=== PATIENT | female | born 1960 | race Caucasian/White ===

== ENCOUNTER 2019-10-06 16:43 | Emergency (ER) | payer OTHER ==
--- NOTE | 2019-10-06 18:06 | RAD REPORT ---
EXAM DESCRIPTION: RAD - Elbow Right 3 View - 10/06/2019 5:56 pm CLINICAL HISTORY: SWELLING Fall, pain COMPARISON: No comparisons FINDINGS: Soft tissue swelling is seen along dorsal aspect of the proximal forearm. No acute fractur e seen.
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
[2019-10-06] MEDS ORDERED: KETOROLAC 30 MG/ML INJ ONE (18:18)
[2019-10-06 19:25] VITALS: BP 130/72; TEMP 98.3; O2SAT 98
== END 2019-10-06 19:18 | disposition home or self-care (01) ==
LOC: ER 16:43
DX: S50.11XA Contusion of right forearm, initial encounter (principal); V18.0XXA Pedal cycle driver injured in noncollision transport accident in nontraffic accident, initial encounter; I10 Essential (primary) hypertension; Z88.5 Allergy status to narcotic agent; Z88.8 Allergy status to other drugs, medicaments and biological substances
CPT/HCPCS: 96372; 99283

== ENCOUNTER 2020-10-08 09:10 | Emergency (ER) | payer OTHER ==
--- NOTE | 2020-10-08 09:56 | RAD REPORT ---
EXAM DESCRIPTION: CT - [id number] - 10/08/2020 9:26 am CLINICAL HISTORY: fall COMPARISON: Outpt Chest Pa/Lat (2 Views) dated 01/10/2016 TECHNIQUE: Axial 5 mm thick images of the head were obtained. Axial 2 mm thick images of the cervic al spine were obtained with sagittal and coronal reconstruction images generated and reviewed. All CT scans are performed using dose optimization technique as appropriate and may include automated exposure control or mA/KV adjustment according to patient size. FINDINGS: No intracranial hemorrhage, mass, edema or acute intracranial finding. No suspicion for ac festus infarction. No cortical edema or sulcal effacement changes. Patient has no significant degree of atrophy. There are questionable chronic ischemic changes mild in severity. Artifacts are present. Phy siologic calcifications are present. Mastoid air cells and paranasal sinuses are clear. No globe or o rbit abnormality seen. Small posterior scalp hematoma present. Cervical bodies are normal in height. There is left convex curvature to the cervical spine that may b e due to muscle spasm or a positioning artifact. No subluxation abnormalities. C5-6 disc space narrow ing present with endplate spurring and right-sided uncovertebral joint hypertrophy. There is right fo raminal stenosis present. No fracture or acute bony abnormality. Central canal detail is inherently limited. No paraspinal mass or hematoma. Patient has dense for age carotid calcifications. These are quite pr ominent and may well cause significant stenosis. IMPRESSION: No intracranial hemorrhage, mass, edema or other acute intracranial finding. Patient has a small posterior scalp hematoma with underlying bone intact. Cervical spine degenerative changes are present without acute finding. Very dense for age bilateral carotid bulb calcifications suspected to cause significant stenosis. Fol low-up outpatient carotid ultrasound could be performed.
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
== END 2020-10-08 10:22 | disposition home or self-care (01) ==
LOC: ER 09:10
DX: S06.0X9A Concussion with loss of consciousness of unspecified duration, initial encounter (principal); V18.0XXA Pedal cycle driver injured in noncollision transport accident in nontraffic accident, initial encounter; Z88.5 Allergy status to narcotic agent
CPT/HCPCS: 70450; 72125

== ENCOUNTER 2020-12-21 11:15 | Emergency (ER) | payer OTHER ==
--- NOTE | 2020-12-21 11:37 | EDPHYS ---
Physician Documentation [facility] Name: Yeimy Donohue Age: 60 yrs Sex: Female : 1960 Arrival Date: 12/21/2020 Time: 11:16 Bed Waiting Private MD: ED Physician Tay Kline HPI: 12/21 11:34 This 60 yrs old Female presents to ER via Ambulatory with complaints of kb Insect Bite. 11:34 The patient presents with an abscess of the left subscapular area. Description: kb erythematous. Onset: The symptoms/episode began/occurred 2 day(s) ago. Possible cause(s): unknown. Associated signs and symptoms: Pertinent positives: erythema. Modifying factors: the symptoms are alleviated by nothing, the symptoms are aggravated by nothing. Severity of symptoms: At their worst the symptoms were moderate, in the emergency department the symptoms are unchanged. The patient has not experienced similar symptoms in the past. The patient has not recently seen a physician. Pt reports she was bitten by a spider 2 days ago. Historical: - Allergies: 11:28 Codeine; jl7 11:28 TOPROL; jl7 11:28 Tramadol HCl; jl7 - PMHx: 11:28 Anxiety; Cellulitis; Depression; Diabetes - NIDDM; High Cholesterol; Hypertension; jl7 - Immunization history:: Client reports receiving the 2nd dose of the Covid vaccine. - Social history:: Smoking status: Patient denies any tobacco usage or history of. ROS: 11:33 Constitutional: Negative for fever, chills, and weight loss. kb 11:33 Skin: Positive for abscess, of the left subscapular area. 11:33 All other systems are negative. Exam: 11:33 Constitutional: This is a well developed, well nourished patient who is awake, alert, kb and in no acute distress. Head/Face: Normocephalic, atraumatic. ENT: Moist Mucous membranes Respiratory: Respirations even and unlabored. No increased work of breathing, no retractions or nasal flaring. MS/ Extremity: Pulses equal, no cyanosis. Neurovascular intact. Full, normal range of motion. Neuro: Awake and alert, GCS 15, oriented to person, place, time, and situation. Moves all extremities. Normal gait. Psych: Awake, alert, with orientation to person, place and time. Behavior, mood, and affect are within normal limits. 11:33 Skin: abscess, that is small, of the left subscapular area. Vital Signs: 11:27 BP 148 / 73; Pulse 91; Resp 17; Temp 97.; Pulse Ox 98% ; Weight 81.65 kg; Height 4 ft. jl7 11 in. (149.86 cm); Pain 8/10; 11:27 Body Mass Index 36.36 (81.65 kg, 149.86 cm) jl7 MDM: 11:29 Patient medically screened. kb 11:30 Data reviewed: vital signs, nurses notes. Data interpreted: Pulse oximetry: on room air kb is 98 %. Interpretation: normal. Counseling: I had a detailed discussion with the patient and/or guardian regarding: the historical points, exam findings, and any diagnostic results supporting the discharge/admit diagnosis, the need for outpatient follow up, a family practitioner, to return to the emergency department if symptoms worsen or persist or if there are any questions or concerns that arise at home. Administered Medications: No medications were administered Disposition: 13:09 Co-signature as Attending Physician, Tay Kline MD I agree with the assessment and kdr plan of care. Disposition Summary: 12/21/20 11:36 Discharge Ordered Location: Home kb Condition: Stable kb Diagnosis - Cutaneous abscess of back [any part, except buttock] kb Followup: kb - With: Emergency Department - When: As needed - Reason: Worsening of condition Followup: kb - With: Private Physician - When: 2 - 3 days - Reason: Recheck today's complaints, Continuance of care, Re-evaluation by your physician Discharge Instructions: - Discharge Summary Sheet kb - Skin Abscess, [id number] kb Forms: - Medication Reconciliation Form kb - Thank You Letter kb - Antibiotic Education kb - Prescription Opioid Use kb Prescriptions: - Bactrim DS 800-160 mg Oral Tablet - take 1 tablet by ORAL route every 12 hours for 7 days; 14 tablet; Refills: 0, kb Product Selection Permitted Signatures: Yolanda Fulton, [employer]-C [employer]-Tay Benítez MD MD kdr Leal, Jahala RN RN jl7
--- NOTE | 2020-12-21 11:37 | ER ---
Nurse's Notes [facility] Name: Yeimy Donohue Age: 60 yrs Sex: Female : 1960 Arrival Date: 12/21/2020 Time: 11:16 Bed Waiting Private MD: Diagnosis: Cutaneous abscess of back [any part, except buttock] Presentation: 12/21 11:27 Chief complaint: Patient states: Spider back to posterior shoulder 2 days ago. jl7 Coronavirus screen: At this time, the client does not indicate any symptoms associated with coronavirus-19. Ebola Screen: No symptoms or risks identified at this time. Initial Sepsis Screen: Does the patient meet any 2 criteria? No. Patient's initial sepsis screen is negative. Does the patient have a suspected source of infection? No. Patient's initial sepsis screen is negative. Risk Assessment: Do you want to hurt yourself or someone else? Patient reports no desire to harm self or others. Onset of symptoms was December 19, 2020. Care prior to arrival: None. 11:27 Method Of Arrival: Ambulatory jl7 11:27 Acuity: [place] 4 jl7 Triage Assessment: 11:28 Bite description: bite sustained to left subscapular area is superficial, was sustained jl7 2 days ago. by an unknown animal, animal information: vaccination(s) is unknown. General: Appears in no apparent distress. uncomfortable, Behavior is cooperative, anxious. Pain: Complains of pain in left subscapular area Pain currently is 8 out of 10 on a pain scale. Historical: - Allergies: 11:28 Codeine; jl7 11:28 TOPROL; jl7 11:28 Tramadol HCl; jl7 - PMHx: 11:28 Anxiety; Cellulitis; Depression; Diabetes - NIDDM; High Cholesterol; Hypertension; jl7 - Immunization history:: Client reports receiving the 2nd dose of the Covid vaccine. - Social history:: Smoking status: Patient denies any tobacco usage or history of. Screenin:42 Abuse screen: Denies threats or abuse. Denies injuries from another. Nutritional jl7 screening: No deficits noted. Tuberculosis screening: No symptoms or risk factors identified. Fall Risk None identified. Vital Signs: 11:27 BP 148 / 73; Pulse 91; Resp 17; Temp 97.; Pulse Ox 98% ; Weight 81.65 kg; Height 4 ft. jl7 11 in. (149.86 cm); Pain 8/10; 11:27 Body Mass Index 36.36 (81.65 kg, 149.86 cm) jl7 ED Course: 11:16 Patient arrived in ED. as 11:19 Yolanda Fulton FNP-C [facility] kb 11:19 Tay Kline MD is Attending Physician. kb 11:28 Triage completed. jl7 11:28 Arm band placed on right wrist. jl7 11:42 Patient has correct armband on for positive identification. jl7 11:42 No provider procedures requiring assistance completed. Patient did not have IV access jl7 during this emergency room visit. Administered Medications: No medications were administered Outcome: 11:36 Discharge ordered by . kb 11:42 Discharged to home ambulatory. jl7 11:42 Condition: stable 11:42 Discharge instructions given to patient, Instructed on discharge instructions, follow up and referral plans. medication usage, Demonstrated understanding of instructions, follow-up care, medications, Prescriptions given X 1. 11:42 Patient left the ED. jl7 Signatures: Yolanda Fulton FNP-C FNP-Martha Johnson Jahala, RN RN jl7
[2020-12-21 11:47] VITALS: BP 148/73; TEMP 97; O2SAT 98
== END 2020-12-21 11:42 | disposition home or self-care (01) ==
LOC: ER 11:15
DX: L02.212 Cutaneous abscess of back [any part, except buttock and flank] (principal); I10 Essential (primary) hypertension; Z88.5 Allergy status to narcotic agent; Z88.8 Allergy status to other drugs, medicaments and biological substances
CPT/HCPCS: 99282

== ENCOUNTER 2021-05-27 07:57 | Emergency (ER) | payer OTHER ==
[2021-05-27 08:20] LABS: Absolute Lymphocytes (CBC) 1.6 K/uL (0.7-4.9); Hematocrit 43.9 % (36.0-45.0); Lymphocytes % 26.3 % (15.3-44.8); MPV 8.4 fL (7.6-11.3); RBC Red Blood Cell Count 4.97 M/uL (3.86-4.86)
[2021-05-27 08:39] LABS: Urine Blood Negative (Negative); Urine Glucose 3+ (Negative); Urine Protein Negative (Negative); Urine Specific Gravity 1.015 (1.005-1.030); Urine pH 5.5 (5.0-7.0)
[2021-05-27 08:59] LABS: Albumin 3.4 g/dL (3.4-5.0); Bilirubin Total 0.2 mg/dL (0.2-1.0); Protein, Total 7.3 g/dL (6.4-8.2)
[2021-05-27] MEDS ORDERED: NA CHLORIDE 0.9% 500 ML ONE (09:02)
[2021-05-27] MEDS ORDERED: MORPHINE 4 MG/ML SYR ONE (09:02)
[2021-05-27] MEDS ORDERED: ONDANSETRON 4 MG/2 ML VIAL ONE (09:02)
--- NOTE | 2021-05-27 11:11 | RAD REPORT ---
EXAM DESCRIPTION: CT - Abdomen Pelvis W Contrast - 05/27/2021 10:19 am CLINICAL HISTORY: Abdominal pain COMPARISON: 2015 TECHNIQUE: Computed axial tomography of the abdomen pelvis was obtained. 100 cc Isovue-300 was admin istered intravenously. Oral contrast was not requested which limits evaluation of bowel. All CT scans are performed using dose optimization technique as appropriate and may include automated exposure control or mA/KV adjustment according to patient size. FINDINGS: Cholecystectomy. Liver, spleen, pancreas, right adrenal kidneys are unremarkable. . Normal appendix Left adrenal nodule without significant change likely adenoma There is no evidence of diverticulitis. Ventral hernia repair 6 centimeter duodenal diverticulum Nvnq-fa-nllohpue stenosis celiac artery IMPRESSION: No acute abnormality is displayed.
--- NOTE | 2021-05-27 11:35 | ER ---
Nurse's Notes [facility] Name: Yeimy Donohue Age: 60 yrs Sex: Female : 1960 Arrival Date: 05/27/2021 Time: 07:58 Bed 13 Private MD: Diagnosis: Upper abdominal pain, unspecified Presentation: 05/27 07:58 Chief complaint: EMS states: they were called to the patients home for a complaint of ap3 abdominal pain. Patient denies recent trauma or surgeries to the area. Patient denies nausea and vomiting, and reports having a normal for her bowel movement this morning. Patient reports only having pain when she thinks about it, but when she isn't thinking about it, she doesn't have any pain. Coronavirus screen: At this time, the client does not indicate any symptoms associated with coronavirus-19. Ebola Screen: No symptoms or risks identified at this time. Initial Sepsis Screen: Does the patient meet any 2 criteria? No. Patient's initial sepsis screen is negative. Does the patient have a suspected source of infection? No. Patient's initial sepsis screen is negative. Risk Assessment: Do you want to hurt yourself or someone else? Patient reports no desire to harm self or others. Onset of symptoms was May 27, 2021. 07:58 Method Of Arrival: EMS: [facility] ap3 07:58 Acuity: [place] 3 ap3 Triage Assessment: 08:01 General: Appears in no apparent distress. comfortable, Behavior is calm, cooperative, ap3 appropriate for age. Pain: Complains of pain in epigastric area Pain began suddenly. Neuro: Level of Consciousness is awake, alert, obeys commands, Oriented to person, place, time. Cardiovascular: Patient's skin is warm and dry. Respiratory: Airway is patent Respiratory effort is even, unlabored. GI: Reports upper abdominal pain, Patient currently denies constipation, diarrhea, nausea, vomiting. Historical: - Allergies: 08:00 Codeine; ap3 08:00 TOPROL; ap3 08:00 Tramadol HCl; ap3 - PMHx: 08:00 Anxiety; High Cholesterol; Diabetes - NIDDM; Depression; Cellulitis; Hypertension; ap3 - Immunization history:: Client reports receiving the 2nd dose of the Covid vaccine, Flu vaccine is up to date. - Social history:: Smoking status: Patient denies any tobacco usage or history of. Screenin:02 Abuse screen: Denies threats or abuse. Nutritional screening: No deficits noted. ap3 Tuberculosis screening: No symptoms or risk factors identified. 08:30 Fall Risk None identified. jg9 Assessment: 07:55 Reassessment: No changes from previously documented assessment. Pain: Complains of pain jg9 in abdomen and epigastric area Pain currently is 6 out of 10 on a pain scale. Quality of pain is described as burning, Also complains of nausea. 09:52 Reassessment: Patient denies pain at this time. Patient states feeling better. Patient jg9 states symptoms have improved. 11:07 Reassessment: No changes from previously documented assessment. Patient and/or family jg9 updated on plan of care and expected duration. Pain level reassessed. Vital Signs: 07:58 BP 134 / 95; Pulse 82; Resp 16; Temp 98.4(O); Pulse Ox 96% ; Weight 88.45 kg; Height 4 ap3 ft. 10 in. (147.32 cm); 08:00 BP 157 / 71; Pulse 79; Resp 17 S; Pulse Ox 96% on R/A; Pain 6/10; jg9 09:30 BP 141 / 61; Pulse 75; Resp 12 S; Pulse Ox 96% on R/A; Pain 0/10; jg9 10:30 BP 164 / 71; Pulse 79; Resp 14 S; Pulse Ox 100% on R/A; Pain 0/10; jg9 11:30 BP 158 / 68; Pulse 74; Resp 16 S; Pulse Ox 98% on R/A; jg9 07:58 Body Mass Index 40.75 (88.45 kg, 147.32 cm) ap3 ED Course: 07:58 Patient arrived in ED. ap3 08:00 Triage completed. ap3 08:02 Arm band placed on right wrist. ap3 08:02 Patient has correct armband on for positive identification. Bed in low position. Call ap3 light in reach. Side rails up X2. Pulse ox on. NIBP on. Door closed. Noise minimized. 08:03 Tay Kline MD is Attending Physician. kdr 08:04 Maxine Mcfarland RN is Primary Nurse. jg9 08:04 Inserted saline lock: 20 gauge in right antecubital area, using aseptic technique. jg9 Blood collected. 08:10 Placed in gown. Warm blanket given. [facility] 08:10 Initial lab(s) drawn, by ED staff, sent to lab. [facility] 10:19 CT Abd/Pelvis - IV Contrast Only In Process Unspecified. EDPA 11:07 Resting quietly. Appears to be sleeping. j9 11:30 Awaiting lab results, Awaiting radiology results. Awaiting disposition. j9 11:45 EKG done, by ED staff, reviewed by Tay Kline MD. [facility] 11:53 No provider procedures requiring assistance completed. jg9 11:54 IV discontinued. jg9 Administered Medications: 09:10 Drug: NS 0.9% 500 ml Route: IV; Rate: bolus; Site: right antecubital; j9 09:52 Follow up: IV Status: Completed infusion; IV Intake: 500ml j9 09:12 Drug: Zofran (Ondansetron) 4 mg Route: IVP; Site: right antecubital; j9 09:52 Follow up: Response: No adverse reaction; Nausea is decreased j9 09:14 Drug: morphine 4 mg Route: IVP; Site: right antecubital; j9 09:52 Follow up: Response: No adverse reaction; Marked relief of symptoms; Pain is decreased jg9 Intake: 09:52 IV: 500ml; Total: 500ml. jg9 Outcome: 11:35 Discharge ordered by . kdr 11:53 Discharged to home ambulatory. jg9 11:53 Condition: stable 11:53 Discharge instructions given to patient, Instructed on discharge instructions, follow up and referral plans. Demonstrated understanding of instructions, follow-up care, medications, Prescriptions given X 1. 11:55 Patient left the ED. jg9 Signatures: Dispatcher [employer] [facility] Tay Kline MD MD kdr Martinez, Maria [facility] Radha Bonds RN RN ap3 Gilmore, Jennifer, RN RN jg9 Corrections: (The following items were deleted from the chart) 09:16 07:55 Pain: Complains of pain in abdomen and epigastric area Pain currently is 6 out of jg9 10 on a pain scale. Also complains of nausea, jg9
--- NOTE | 2021-05-27 11:35 | EDPHYS ---
Physician Documentation [facility] Name: Yeimy Donohue Age: 60 yrs Sex: Female : 1960 Arrival Date: 05/27/2021 Time: 07:58 Bed 13 Private MD: ED Physician Tay Kline HPI: 05/27 09:57 This 60 yrs old Female presents to ER via EMS with complaints of Abdominal pain. kdr 09:57 The patient presents with abdominal pain in the left upper quadrant. Onset: The kdr symptoms/episode began/occurred gradually, yesterday. The symptoms do not radiate. Associated signs and symptoms: none. The symptoms are described as achy, dull, vague. Modifying factors: The symptoms are alleviated by nothing, the symptoms are aggravated by vomiting. Severity of pain: At its worst the pain was mild moderate just prior to arrival, in the emergency department the pain is unchanged. The patient has not experienced similar symptoms in the past. Historical: - Allergies: 08:00 Codeine; ap3 08:00 TOPROL; ap3 08:00 Tramadol HCl; ap3 - PMHx: 08:00 Anxiety; High Cholesterol; Diabetes - NIDDM; Depression; Cellulitis; Hypertension; ap3 - Immunization history:: Client reports receiving the 2nd dose of the Covid vaccine, Flu vaccine is up to date. - Social history:: Smoking status: Patient denies any tobacco usage or history of. ROS: 09:57 Constitutional: Negative for fever, chills, and weight loss, Eyes: Negative for injury, kdr pain, redness, and discharge, Neck: Negative for injury, pain, and swelling, Cardiovascular: Negative for chest pain, palpitations, and edema, Respiratory: Negative for shortness of breath, cough, wheezing, and pleuritic chest pain, Back: Negative for injury and pain, : Negative for injury, bleeding, discharge, and swelling, MS/Extremity: Negative for injury and deformity, Skin: Negative for injury, rash, and discoloration, Neuro: Negative for headache, weakness, numbness, tingling, and seizure activity. Psych: Negative for depression, anxiety, suicide ideation, homicidal ideation, and hallucinations, Allergy/Immunology: Negative for hives, rash, and allergies, Endocrine: Negative for neck swelling, polydipsia, polyuria, polyphagia, and marked weight changes, Hematologic/Lymphatic: Negative for swollen nodes, abnormal bleeding, and unusual bruising. 09:57 Abdomen/GI: Positive for abdominal pain, nausea, Negative for diarrhea, constipation, abdominal cramps, abdominal distension, anorexia, dysphagia, hematemesis, black/tarry stool, rectal pain, rectal bleeding. Exam: 09:57 Constitutional: This is a well developed, well nourished patient who is awake, alert, kdr and in no acute distress. Head/Face: Normocephalic, atraumatic. Eyes: Pupils equal round and reactive to light, extra-ocular motions intact. Lids and lashes normal. Conjunctiva and sclera are non-icteric and not injected. Cornea within normal limits. Periorbital areas with no swelling, redness, or edema. Neck: Trachea midline, no thyromegaly or masses palpated, and no cervical lymphadenopathy. Supple, full range of motion without nuchal rigidity, or vertebral point tenderness. No Meningismus. Chest/axilla: Normal chest wall appearance and motion. Nontender with no deformity. No lesions are appreciated. Cardiovascular: Regular rate and rhythm with a normal S1 and S2. No gallops, murmurs, or rubs. Normal PMI, no JVD. No pulse deficits. Respiratory: Lungs have equal breath sounds bilaterally, clear to auscultation and percussion. No rales, rhonchi or wheezes noted. No increased work of breathing, no retractions or nasal flaring. Back: No spinal tenderness. No costovertebral tenderness. Full range of motion. Skin: Warm, dry with normal turgor. Normal color with no rashes, no lesions, and no evidence of cellulitis. MS/ Extremity: Pulses equal, no cyanosis. Neurovascular intact. Full, normal range of motion. Neuro: Awake and alert, GCS 15, oriented to person, place, time, and situation. Cranial nerves II-XII grossly intact. Motor strength 5/5 in all extremities. Sensory grossly intact. Cerebellar exam normal. Normal gait. Psych: Awake, alert, with orientation to person, place and time. Behavior, mood, and affect are within normal limits. 09:57 Abdomen/GI: Inspection: abdomen appears normal, Bowel sounds: diminished, in all quadrants, Palpation: soft, mild abdominal tenderness, in all quadrants. 11:54 ECG was reviewed by the Attending Physician. kdr Vital Signs: 07:58 BP 134 / 95; Pulse 82; Resp 16; Temp 98.4(O); Pulse Ox 96% ; Weight 88.45 kg; Height 4 ap3 ft. 10 in. (147.32 cm); 08:00 BP 157 / 71; Pulse 79; Resp 17 S; Pulse Ox 96% on R/A; Pain 6/10; jg9 09:30 BP 141 / 61; Pulse 75; Resp 12 S; Pulse Ox 96% on R/A; Pain 0/10; jg9 10:30 BP 164 / 71; Pulse 79; Resp 14 S; Pulse Ox 100% on R/A; Pain 0/10; jg9 11:30 BP 158 / 68; Pulse 74; Resp 16 S; Pulse Ox 98% on R/A; jg9 07:58 Body Mass Index 40.75 (88.45 kg, 147.32 cm) ap3 MDM: 09:57 Data reviewed: vital signs, nurses notes, lab test result(s), radiologic studies. kdr Counseling: I had a detailed discussion with the patient and/or guardian regarding: the historical points, exam findings, and any diagnostic results supporting the discharge/admit diagnosis, lab results, radiology results, the need for outpatient follow up. 11:35 Patient medically screened. [facility] 05/27 08:04 Order name: CBC with Diff; Complete Time: 08:28 [facility] [place] 08:04 Order name: CMP; Complete Time: 11:34 [facility] [place] 08:04 Order name: Lipase; Complete Time: 11:[place] [facility] [place] 08:11 Order name: Troponin High Sensitivity; Complete Time: 11:34 [facility] 05/27 08:39 Order name: Urine Dipstick-Ancillary; Complete Time: 11:34 [facility] 05/27 09:51 Order name: CT Abd/Pelvis - IV Contrast Only; Complete Time: 11:34 [facility] 05/27 08:04 Order name: IV Saline Lock; Complete Time: 08:04 [facility] [place] 08:04 Order name: Labs collected and sent; Complete Time: 08:04 [facility] [place] 05/[place] 08:11 Order name: Urine Dipstick-Ancillary (obtain specimen); Complete Time: 08:57 [facility] 05/27 08:11 Order name: EKG - Nurse/Tech; Complete Time: 09:13 kdr EC:54 Rate is 76 beats/min. Rhythm is regular, Sinus Rhythm with No ectopy. QRS [place] is kdr Normal. Right axis deviation noted. TN interval is normal. QRS interval is normal. QT interval is normal. Clinical impression: NSR w/ Non-specific ST/T Changes. Administered Medications: 09:10 Drug: NS 0.9% 500 ml Route: IV; Rate: bolus; Site: right antecubital; jg9 09:52 Follow up: IV Status: Completed infusion; IV Intake: 500ml jg9 09:12 Drug: Zofran (Ondansetron) 4 mg Route: IVP; Site: right antecubital; jg9 09:52 Follow up: Response: No adverse reaction; Nausea is decreased jg9 09:14 Drug: morphine 4 mg Route: IVP; Site: right antecubital; jg9 09:52 Follow up: Response: No adverse reaction; Marked relief of symptoms; Pain is decreased jg9 Disposition Summary: 05/27/21 11:35 Discharge Ordered Location: Home kdr Problem: new kdr Symptoms: have improved kdr Condition: Stable kdr Diagnosis - Upper abdominal pain, unspecified kdr Followup: kdr - With: Private Physician - When: 2 - 3 days - Reason: If symptoms return, Further diagnostic work-up, Recheck today's complaints, Continuance of care, Re-evaluation by your physician Discharge Instructions: - Discharge Summary Sheet kdr - Abdominal Pain, Adult, [id number] kdr Forms: - Medication Reconciliation Form kdr - Thank You Letter kdr Prescriptions: - Zofran 4 mg Oral Tablet - take 1 tablet by ORAL route every 4-6 hours As needed; 12 tablet; Refills: 0, kdr Product Selection Permitted Signatures: Dispatcher [employer] Tay Russell MD MD kdr Prokisch, Amanda RN RN ap3 Maxine Mcfarland RN RN jg9
[2021-05-27 12:01] VITALS: TEMP 98.4
[2021-05-27 12:06] VITALS: BP 158/68; O2SAT 98
--- NOTE | 2021-05-28 08:46 | EKG ---
Test Date: 2021-05-27 Test Time: 09:05:39 Embosser Operator: JEFF MEASUREMENT RESULTS: Intervals: Rate: 76 NH: 156 QRSD: 76 QT: 382 QTc: 429 [place]: P: 51 NH: 156 QRS: 90 T: 16 INTERPRETIVE STATEMENTS: Normal sinus rhythm Rightward axis Septal infarct, age undetermined Abnormal ECG Compared to ECG 01/10/2016 16:51:42 Right-axis deviation now present Myocardial infarct finding now present Electronically Signed On 05-28-21 08:42:33 CDT by Rajiv Lo
== END 2021-05-27 11:55 | disposition home or self-care (01) ==
LOC: ER 07:57
DX: R10.12 Left upper quadrant pain (principal); E11.9 Type 2 diabetes mellitus without complications; I10 Essential (primary) hypertension; Z88.5 Allergy status to narcotic agent
CPT/HCPCS: 96361; 93005; 85025; 36415; 81003; 84484; 83690; 80053; 74177; 96375; 96374; 99284; Q9967; J7040; J2405

== ENCOUNTER 2021-09-10 08:17 | Emergency (ER) | payer OTHER ==
[2021-09-10] MEDS ORDERED: KETOROLAC 30 MG/ML INJ ONE (08:36)
[2021-09-10 08:44] LABS: Absolute Lymphocytes (CBC) 0.9 K/uL (0.7-4.9); Hematocrit 37.4 % (36.0-45.0); Lymphocytes % 15.3 % (15.3-44.8); MCV 92.1 fL (80-100); MPV 8.2 fL (7.6-11.3); RBC Red Blood Cell Count 4.06 M/uL (3.86-4.86)
[2021-09-10 08:50] LABS: Urine Blood Trace-intact (Negative); Urine Glucose 2+ (Negative); Urine Protein 1+ (Negative)
[2021-09-10 08:58] LABS: Potassium 3.4 mmol/L (3.5-5.1)
[2021-09-10 09:23] LABS: Urine Appearance CLEAR (Clear); Urine Bilirubin NEGATIVE (Negative); Urine Blood TRACE (Negative); Urine Color YELLOW (Yellow); Urine Glucose 3+ (Negative); Urine Protein 1+ (Negative); Urine Specific Gravity 1.015 (1.005-1.030)
[2021-09-10 09:24] LABS: Urine Microscopic Reflex ORDER UMIC; Urine Urobilinogen 0.2 mg/dL (0.2-1.0)
[2021-09-10 09:35] LABS: Urine Bacteria 20-50 /HPF (<20); Urine RBC <5 /HPF (NONE SEEN)
--- NOTE | 2021-09-10 10:12 | RAD REPORT ---
EXAM DESCRIPTION: CT - Abdomen Pelvis Wo Contrast - 09/10/2021 9:54 am CLINICAL HISTORY: back pain COMPARISON: Abdomen Pelvis W Contrast dated 05/27/2021; Abdomen Pelvis W Contrast dated 6 TECHNIQUE: Axial [address] imaging of the abdomen and pelvis was performed without IV contrast. No IV contrast was given because of allergy, abnormal renal function, patient refusal or physician re quest. No oral contrast. All CT scans are performed using dose optimization technique as appropriate and may include automated exposure control or mA/KV adjustment according to patient size. FINDINGS: No suspicious findings in the lung bases. The liver, spleen and pancreas show no suspicious findings on non-contrast imaging. Cholecystectomy c lips in place. No biliary tree dilatation. No hydronephrosis or suspicious renal mass. A 2 centimeter left adrenal fat attenuation mass unchang ed from comparison. Isodense renal masses and pyelonephritis cannot be excluded in the absence of IV contrast. The urinary bladder is without significant finding. Uterus and ovaries show no suspicious f indings. No gastric dilatation or gastric wall thickening. Patient has 2 very large duodenal diverticulum fill ed with food/bowel content. These are 6 cm in diameter. These measure slightly larger than prior imag ing back to 2016 but are not new. Size may vary significantly based on the amount of material within the lumen. No wall thickening or edema. Remainder of the small bowel unremarkable. The appendix is no rmal. Moderate stool volume fills the colon. Sigmoid is tortuous and redundant with mild to moderate diverticulosis. No diverticulitis. Numerous pelvic floor phleboliths are present. There is pelvic floor laxity evident. No free air, mili e fluid or inflammatory stranding. No mass or bulky lymphadenopathy. Postsurgical changes noted to the periumbilical abdominal wall. Findings are stable from May 2021. No acute bone findings seen. Facet joint and endplate degenerative changes are present. No pathologic component. Central canal detail is inherently limited. Prominent disc bulge changes are evident at L 3-4. Borderline or mild central spinal stenosis is suspected. This can be better assessed on MR imagi ng. IMPRESSION: Non-contrast enhanced CT abdomen and pelvis imaging show no acute finding. Full assessment is limited is the absence of IV contrast. Nonacute findings detailed in the body of the report.
--- NOTE | 2021-09-10 10:26 | EDPHYS ---
Physician Documentation [facility] Name: Yeimy Donohue Age: 60 yrs Sex: Female : 1960 Arrival Date: 09/10/2021 Time: 08:18 Bed 18 Private MD: ED Physician Chuy Anthony HPI: 09/10 08:27 This 60 yrs old Female presents to ER via EMS with complaints of low back. ms3 08:27 The patient presents with pain that is acute, with no known mechanism of injury. The ms3 symptoms are located in the low back. Onset: The symptoms/episode began/occurred acutely, today. The pain does not radiate. Associated signs and symptoms: Pertinent positives: dysuria, nausea, Pertinent negatives: chest pain, vomiting. The problem was sustained without known cause. Modifying factors: The patient symptoms are alleviated by [facility] by EMS. Historical: - Allergies: 08:20 Codeine; rosales 08:20 TOPROL; rosales 08:20 Tramadol HCl; rosales - Home Meds: 08:20 buspirone 15 mg Oral tab 1 tab daily [Active]; carvedilol 12.5 mg Oral tab 1 tab 2 rosales times per day [Active]; Effexor XR 75 mg Oral cp24 1 cap once daily [Active]; Invokana 100 mg Oral tab 1 tab once daily [Active]; losartan 50 mg Oral tab 1 tab once daily [Active]; metformin 1,000 mg Oral tab 1 tab 2 times per day [Active]; Multiple Vitamins Oral tab [Active]; oxybutynin chloride 5 mg Oral tab 1 tab 2 times per day [Active]; simvastatin 20 mg Oral tab 1 tab once daily [Active]; - PMHx: 08:20 Anxiety; Cellulitis; Depression; Diabetes - NIDDM; High Cholesterol; Hypertension; rosales - Immunization history:: Adult Immunizations up to date. - Social history:: Smoking status: Patient denies any tobacco usage or history of. ROS: 08:27 Constitutional: Negative for fever, and chills. ENT: Negative for injury, pain, and ms3 discharge, Neck: Negative for injury, pain, and swelling, Cardiovascular: Negative for chest pain, and palpitations. Respiratory: Negative for shortness of breath, cough, wheezing, and pleuritic chest pain, Abdomen/GI: Negative for abdominal pain, nausea, vomiting, diarrhea, and constipation, Back: Negative for injury and pain, MS/Extremity: Negative for injury and deformity. 08:27 : Positive for urinary symptoms. 08:27 All other systems are negative. Exam: 08:27 Constitutional: This is a well developed, well nourished patient who is awake, alert, ms3 and in no acute distress. Head/Face: Normocephalic, atraumatic. Neck: Trachea midline, no cervical lymphadenopathy. Supple, full range of motion without nuchal rigidity, or vertebral point tenderness. No Meningismus. Chest/axilla: Normal chest wall appearance and motion. Nontender with no deformity. Cardiovascular: Regular rate and rhythm with a normal S1 and S2. No gallops, murmurs, or rubs. Normal PMI, no JVD. No pulse deficits. Respiratory: Lungs have equal breath sounds bilaterally, clear to auscultation and percussion. No rales, rhonchi or wheezes noted. No increased work of breathing, no retractions or nasal flaring. Abdomen/GI: Soft, non-tender, with normal bowel sounds. No distension or tympany. No guarding or rebound. No evidence of tenderness throughout. Back: No spinal tenderness. No costovertebral tenderness. Full range of motion. Skin: Warm, dry with normal turgor. Normal color with no rashes, no lesions, and no evidence of cellulitis. Neuro: Awake and alert, GCS 15, oriented to person, place, time, and situation. Cranial nerves II-XII grossly intact. Motor strength 5/5 in all extremities. Sensory grossly intact. Cerebellar exam normal. Normal gait. Psych: Awake, alert, with orientation to person, place and time. Behavior, mood, and affect are within normal limits. Vital Signs: 08:19 BP 146 / 56; Pulse 92; Resp 17; Temp 98.3; Pulse Ox 99% on R/A; Weight 83.46 kg; Height rosales 4 ft. 10 in. (147.32 cm); 10:14 BP 134 / 73; Pulse 85; Resp 18; Pulse Ox 91% on R/A; rosales 08:19 Body Mass Index 38.46 (83.46 kg, 147.32 cm) rosales MDM: 08:21 Patient medically screened. ms3 10:37 Differential diagnosis: Pyelonephritis Ureterolithiasis muscle spasm. Data reviewed: ms3 vital signs, nurses notes, lab test result(s), radiologic studies, CT scan. Counseling: I had a detailed discussion with the patient and/or guardian regarding: the historical points, exam findings, and any diagnostic results supporting the discharge/admit diagnosis, lab results, radiology results, the need for outpatient follow up, to return to the emergency department if symptoms worsen or persist or if there are any questions or concerns that arise at home. ED course: Discussed labs,CT scan, physical exam findings with patient. Patient to follow-up with primary care physician in 2 to 3 days. Patient understands and agrees with plan. All questions were answered. Return precautions discussed include worsening symptoms, or any other concerns. On reevaluation patient is alert and oriented x4, in no apparent distress, nontoxic-appearing, speaking full sentences, ambulatory in emergency department.. 09/10 08:22 Order name: Urinalysis ms3 09/10 08:22 Order name: CBC with Diff; Complete Time: 09:29 ms3 09/10 08:22 Order name: BMP; Complete Time: 09:29 ms3 09/10 08:50 Order name: Urine Dipstick-Ancillary; Complete Time: 09:29 EDMS 09/10 09:36 Order name: Urine Microscopic Only EDMS 09/10 09:38 Order name: Urine Culture EDMS 09/10 09:31 Order name: CT Abd/Pelvis - Without Contrast; Complete Time: 10:18 ms3 Administered Medications: 08:38 Drug: Ketorolac 10 mg Route: IVP; Site: left hand; 08:38 Follow up: Response: No adverse reaction rosales Disposition Summary: 09/10/21 10:25 Discharge Ordered Location: Home ms3 Condition: Stable ms3 Diagnosis - Hematuria, unspecified ms3 - Low back pain ms3 Followup: ms3 - With: Private Physician - When: 2 - 3 days - Reason: Re-evaluation by your physician Discharge Instructions: - Discharge Summary Sheet ms3 - Acute Back Pain, Adult ms3 - Hematuria, Adult ms3 Forms: - Medication Reconciliation Form ms3 - Work release form eb - Thank You Letter ms3 - Antibiotic Education ms3 - Prescription Opioid Use ms3 Prescriptions: - Cyclobenzaprine 5 mg Oral Tablet - take 1 tablet by ORAL route 3 times per day As needed; 15 tablet; Refills: 0, ms3 Product Selection Permitted Signatures: Dispatcher [employer] EDMS Chuy Anthony, DO DO ms3 Jen Peters, RN RN rosales
--- NOTE | 2021-09-10 10:26 | ER ---
Nurse's Notes [facility] Name: Yeimy Donohue Age: 60 yrs Sex: Female : 1960 Arrival Date: 09/10/2021 Time: 08:18 Bed 18 Private MD: Diagnosis: Hematuria, unspecified;Low back pain Presentation: 09/10 08:19 Chief complaint: Patient states: right back pain n/v. Coronavirus screen: Vaccine rosales status: Patient reports receiving the 2nd dose of the covid vaccine. Ebola Screen: Patient denies travel to an Ebola-affected area in the 21 days before illness onset. Initial Sepsis Screen: Does the patient meet any 2 criteria? HR > 90 bpm. No. Patient's initial sepsis screen is negative. Does the patient have a suspected source of infection? No. Patient's initial sepsis screen is negative. Risk Assessment: Do you want to hurt yourself or someone else? Patient reports no desire to harm self or others. Onset of symptoms was September 09, 2021. 08:19 Method Of Arrival: EMS: [facility] 08:19 Acuity: [place] 3 rosales Triage Assessment: 08:20 General: Appears in no apparent distress. Behavior is calm, cooperative. Pain: rosales Complains of pain in right mid back and right low back. Historical: - Allergies: 08:20 Codeine; rosales 08:20 TOPROL; rosales 08:20 Tramadol HCl; rosales - Home Meds: 08:20 buspirone 15 mg Oral tab 1 tab daily [Active]; carvedilol 12.5 mg Oral tab 1 tab 2 rosales times per day [Active]; Effexor XR 75 mg Oral cp24 1 cap once daily [Active]; Invokana 100 mg Oral tab 1 tab once daily [Active]; losartan 50 mg Oral tab 1 tab once daily [Active]; metformin 1,000 mg Oral tab 1 tab 2 times per day [Active]; Multiple Vitamins Oral tab [Active]; oxybutynin chloride 5 mg Oral tab 1 tab 2 times per day [Active]; simvastatin 20 mg Oral tab 1 tab once daily [Active]; - PMHx: 08:20 Anxiety; Cellulitis; Depression; Diabetes - NIDDM; High Cholesterol; Hypertension; rosales - Immunization history:: Adult Immunizations up to date. - Social history:: Smoking status: Patient denies any tobacco usage or history of. Screenin:21 Abuse screen: Denies threats or abuse. Denies injuries from another. Nutritional rosales screening: No deficits noted. Tuberculosis screening: No symptoms or risk factors identified. Fall Risk None identified. Assessment: 08:21 General: Appears in no apparent distress. Behavior is calm, cooperative. GI: Reports rosales nausea, vomiting. : Reports pain in right flank(s), in lower back Pain is 8 out of 10 on a pain scale. Vital Signs: 08:19 BP 146 / 56; Pulse 92; Resp 17; Temp 98.3; Pulse Ox 99% on R/A; Weight 83.46 kg; Height rosales 4 ft. 10 in. (147.32 cm); 10:14 BP 134 / 73; Pulse 85; Resp 18; Pulse Ox 91% on R/A; rosales 08:19 Body Mass Index 38.46 (83.46 kg, 147.32 cm) rosales ED Course: 08:18 Patient arrived in ED. rosales 08:20 Triage completed. rosales 08:20 Arm band placed on. rosales 08:21 Chuy Anthony DO is Attending Physician. ms3 08:21 Patient has correct armband on for positive identification. Bed in low position. rosales 08:21 No provider procedures requiring assistance completed. Maintain EMS IV. Gauge \T\ site: 20g left hand double lumen. 08:27 Jen Peters, RN is Primary Nurse. rosales 09:56 CT Abd/Pelvis - Without Contrast In Process Unspecified. EDMS 10:42 IV discontinued, intact, Pressure dressing applied. rosales Administered Medications: 08:38 Drug: Ketorolac 10 mg Route: IVP; Site: left hand; rosales 08:38 Follow up: Response: No adverse reaction rosales Medication: 08:21 VIS not applicable for this client. rosales Outcome: 10:25 Discharge ordered by ms3 10:42 Discharged to home ambulatory. rosales 10:42 Condition: good 10:42 Discharge instructions given to patient, Prescriptions given X 1. 10:43 Patient left the ED. rosales Signatures: Dispatcher [employer] EDMS Chuy Antohny DO DO ms3 Jen Peters RN RN rosales
[2021-09-10 11:21] VITALS: TEMP 98.3
[2021-09-10 11:24] VITALS: BP 134/73; O2SAT 91
== END 2021-09-10 10:43 | disposition home or self-care (01) ==
LOC: ER 08:17
DX: M54.50 Low back pain, unspecified (principal); R31.9 Hematuria, unspecified; E11.9 Type 2 diabetes mellitus without complications; I10 Essential (primary) hypertension; F32.A Depression, unspecified; Z88.5 Allergy status to narcotic agent; Z88.8 Allergy status to other drugs, medicaments and biological substances
CPT/HCPCS: 36415; 74176; 80048; 81003; 81015; 85025; 87077; 87086; 87088; 87186; 96374; 99284

== ENCOUNTER 2021-09-12 10:58 | Emergency (ER) | payer OTHER ==
[2021-09-12] MEDS ORDERED: ONDANSETRON 4 MG/2 ML VIAL ONE (12:31)
[2021-09-12 12:53] LABS: Absolute Lymphocytes (CBC) 1.6 K/uL (0.7-4.9); Hematocrit 45.2 % (36.0-45.0); Lymphocytes % 35.9 % (15.3-44.8); MCV 91.8 fL (80-100); MPV 8.4 fL (7.6-11.3); RBC Red Blood Cell Count 4.92 M/uL (3.86-4.86)
[2021-09-12 13:15] LABS: Potassium 3.7 mmol/L (3.5-5.1)
--- NOTE | 2021-09-12 13:15 | RAD REPORT ---
EXAM DESCRIPTION: Supa Single View09/12/2021 1:02 pm CLINICAL HISTORY: Cough COMPARISON: 2015 FINDINGS: The lungs appear clear of acute infiltrate. The heart is normal size IMPRESSION: No acute abnormalities displayed
--- NOTE | 2021-09-12 14:29 | ER ---
Nurse's Notes [facility] Name: Yeimy Donohue Age: 60 yrs Sex: Female : 1960 Arrival Date: 09/12/2021 Time: 11:08 Bed 18 Private MD: Diagnosis: COVID 19;Nausea;Cough Presentation: 09/12 11:08 Chief complaint: EMS states: back pain since yesterday and c/o nausea. Coronavirus vg1 screen: Vaccine status: Patient reports receiving the 2nd dose of the covid vaccine. Client denies travel out of the [place] in the last 14 days. Ebola Screen: Patient denies exposure to infectious person. Patient denies travel to an Ebola-affected area in the 21 days before illness onset. Initial Sepsis Screen: Does the patient meet any 2 criteria? No. Patient's initial sepsis screen is negative. Does the patient have a suspected source of infection? No. Patient's initial sepsis screen is negative. Risk Assessment: Do you want to hurt yourself or someone else? Patient reports no desire to harm self or others. Onset of symptoms was August 12, 2021. Care prior to arrival: Medication(s) given: zofran 4 mg, IV initiated. 20 GA, in the left hand. 11:08 Method Of Arrival: EMS: [place] [id number] 11:08 Acuity: [place] 3 vg1 Triage Assessment: 11:10 General: Appears uncomfortable, Behavior is cooperative. Pain: Complains of pain in vg1 back Pain currently is 7 out of 10 on a pain scale. Pain began 1 day ago. EENT: No signs and/or symptoms were reported regarding the EENT system. Neuro: Level of Consciousness is awake, alert, obeys commands, Oriented to person, place, time, situation. Cardiovascular: Patient's skin is warm and dry. Respiratory: Airway is patent Respiratory effort is even, unlabored. GI: Reports nausea. : No signs and/or symptoms were reported regarding the genitourinary system. Derm: Skin is intact, is healthy with good turgor. Musculoskeletal: Circulation, motion, and sensation intact. Historical: - Allergies: 11:10 Codeine; vg1 11:10 TOPROL; vg1 11:10 Tramadol HCl; vg1 - Home Meds: 11:10 buspirone 15 mg Oral tab 1 tab daily [Active]; carvedilol 12.5 mg Oral tab 1 tab 2 vg1 times per day [Active]; Effexor XR 75 mg Oral cp24 1 cap once daily [Active]; Invokana 100 mg Oral tab 1 tab once daily [Active]; losartan 50 mg Oral tab 1 tab once daily [Active]; metformin 1,000 mg Oral tab 1 tab 2 times per day [Active]; Multiple Vitamins Oral tab [Active]; oxybutynin chloride 5 mg Oral tab 1 tab 2 times per day [Active]; simvastatin 20 mg Oral tab 1 tab once daily [Active]; - PMHx: 11:10 Anxiety; Cellulitis; Depression; Diabetes - NIDDM; High Cholesterol; Hypertension; vg1 - PSHx: 11:10 Cholecystectomy; Tubal ligation; vg1 - Immunization history:: Client reports receiving the 2nd dose of the Covid vaccine. - Social history:: Smoking status: Patient denies any tobacco usage or history of. Screenin:12 Abuse screen: Denies threats or abuse. Nutritional screening: No deficits noted. vg1 Tuberculosis screening: No symptoms or risk factors identified. Fall Risk No fall in past 12 months (0 pts). No secondary diagnosis (0 pts). IV access (20 points). Ambulatory Aid- None/Bed Rest/Nurse Assist (0 pts). Gait- Normal/Bed Rest/Wheelchair (0 pts) Mental Status- Oriented to own ability (0 pts). Total Gray Fall Scale indicates No Risk (0-24 pts). Assessment: 11:12 Reassessment: SEE TRIAGE. vg1 Vital Signs: 11:08 BP 107 / 58; Pulse 80; Resp 18; Temp 97.8; Pulse Ox 98% on R/A; Weight 83.91 kg; Height vg1 4 ft. 10 in. (147.32 cm); Pain 7/10; 13:18 BP 110 / 65; Pulse 79; Resp 18; Pulse Ox 94% on R/A; bh1 14:46 BP 98 / 57; Pulse 89; Resp 18; Pulse Ox 100% on R/A; bh1 11:08 Body Mass Index 38.66 (83.91 kg, 147.32 cm) vg1 ED Course: 11:08 Patient arrived in ED. vg1 11:10 Triage completed. vg1 11:10 Arm band placed on. 1 11:12 Patient has correct armband on for positive identification. Bed in low position. Call [facility] light in reach. Side rails up X2. 11:21 Clarice Ayoub RN is Primary Nurse. 1 11:32 Chuy Anthony DO is Attending Physician. ms3 12:00 Inserted saline lock: 20 gauge in left hand, using aseptic technique. Blood collected. [facility] 12:08 Report given to Karolina HARRELL. 1 12:30 Assisted to bathroom. Cleaned of incontinence. Linen changed. [facility] 12:35 CBC with Diff Sent. [facility] 12:36 SARS-COV-2 RT PCR (Document "Date of Onset" if Symptomatic) Sent. [facility] 12:36 BMP Sent. [facility] 13:04 CXR XRAY In Process Unspecified. EDMS 13:19 No apparent distress. Awaiting lab results, Awaiting radiology results. [facility] 14:28 Homer Mendoza DO is Referral Physician. ms3 14:46 No provider procedures requiring assistance completed. [facility] 14:47 No apparent distress. Resting quietly. Awaiting lab results, Awaiting radiology results.[facility] 15:00 IV discontinued, intact, bleeding controlled, No redness/swelling at site. [facility] Administered Medications: 12:30 Drug: Zofran (Ondansetron) 4 mg Route: IVP; Site: left hand; [facility] 12:36 Follow up: Response: No adverse reaction [facility] Medication: 14:46 VIS not applicable for this client. [facility] Outcome: 14:29 Discharge ordered by MD. ms3 15:00 Discharged to home ambulatory. [facility] 15:00 Condition: good 15:00 Discharge instructions given to patient, Instructed on discharge instructions, follow up and referral plans. Demonstrated understanding of instructions, follow-up care, Prescriptions given X 1. 15:01 Patient left the ED. [facility] Signatures: Dispatcher [employer] EDMS Clarice Ayoub RN RN [facility] Chuy Anthony DO DO ms3 Karolina Hinton RN RN [facility]
--- NOTE | 2021-09-12 14:29 | EDPHYS ---
Physician Documentation [facility] Name: Yeimy Donohue Age: 60 yrs Sex: Female : 1960 Arrival Date: 09/12/2021 Time: 11:08 Bed 18 Private MD: ED Physician Chuy Anthony HPI: 09/12 12:40 This 60 yrs old Female presents to ER via EMS with complaints of Back Pain. ms3 12:40 The patient or guardian reports cough, that is intermittent, described as moderate. ms3 Onset: The symptoms/episode began/occurred last night. Severity of symptoms: At their worst the symptoms were moderate, in the emergency department the symptoms are unchanged. Modifying factors: The symptoms are alleviated by nothing, the symptoms are aggravated by nothing. Associated signs and symptoms: Pertinent positives: back pain. Patient seen in the ED on Thursday. Patient states Flexeril has improved her pain.. Historical: - Allergies: 11:10 Codeine; vg1 11:10 TOPROL; vg1 11:10 Tramadol HCl; vg1 - Home Meds: 11:10 buspirone 15 mg Oral tab 1 tab daily [Active]; carvedilol 12.5 mg Oral tab 1 tab 2 vg1 times per day [Active]; Effexor XR 75 mg Oral cp24 1 cap once daily [Active]; Invokana 100 mg Oral tab 1 tab once daily [Active]; losartan 50 mg Oral tab 1 tab once daily [Active]; metformin 1,000 mg Oral tab 1 tab 2 times per day [Active]; Multiple Vitamins Oral tab [Active]; oxybutynin chloride 5 mg Oral tab 1 tab 2 times per day [Active]; simvastatin 20 mg Oral tab 1 tab once daily [Active]; - PMHx: 11:10 Anxiety; Cellulitis; Depression; Diabetes - NIDDM; High Cholesterol; Hypertension; vg1 - PSHx: 11:10 Cholecystectomy; Tubal ligation; vg1 - Immunization history:: Client reports receiving the 2nd dose of the Covid vaccine. - Social history:: Smoking status: Patient denies any tobacco usage or history of. ROS: 12:40 Constitutional: Negative for fever, and chills. Neck: Negative for injury, pain, and ms3 swelling, Cardiovascular: Negative for chest pain, and palpitations. Abdomen/GI: Negative for abdominal pain, nausea, vomiting, diarrhea, and constipation, MS/Extremity: Negative for injury and deformity, Skin: Negative for injury, rash, and discoloration, Neuro: Negative for headache, weakness, numbness, tingling. Psych: Negative for depression, anxiety, suicide ideation, homicidal ideation, and hallucinations. 12:40 Respiratory: Positive for cough. 12:40 Back: Positive for of the back. 12:40 All other systems are negative. Exam: 12:40 Constitutional: This is a well developed, well nourished patient who is awake, alert, ms3 and in no acute distress. Head/Face: Normocephalic, atraumatic. Neck: Trachea midline, no cervical lymphadenopathy. Supple, full range of motion without nuchal rigidity, or vertebral point tenderness. No Meningismus. Chest/axilla: Normal chest wall appearance and motion. Nontender with no deformity. Cardiovascular: Regular rate and rhythm with a normal S1 and S2. No gallops, murmurs, or rubs. Normal PMI, no JVD. No pulse deficits. Respiratory: Lungs have equal breath sounds bilaterally, clear to auscultation and percussion. No rales, rhonchi or wheezes noted. No increased work of breathing, no retractions or nasal flaring. Abdomen/GI: Soft, non-tender, with normal bowel sounds. No distension or tympany. No guarding or rebound. No evidence of tenderness throughout. Back: No spinal tenderness. No costovertebral tenderness. Full range of motion. Skin: Warm, dry with normal turgor. Normal color with no rashes, no lesions, and no evidence of cellulitis. MS/ Extremity: Pulses equal, no cyanosis. Neurovascular intact. Full, normal range of motion. Psych: Awake, alert, with orientation to person, place and time. Behavior, mood, and affect are within normal limits. Vital Signs: 11:08 BP 107 / 58; Pulse 80; Resp 18; Temp 97.8; Pulse Ox 98% on R/A; Weight 83.91 kg; Height vg1 4 ft. 10 in. (147.32 cm); Pain 7/10; 13:18 BP 110 / 65; Pulse 79; Resp 18; Pulse Ox 94% on R/A; bh1 14:46 BP 98 / 57; Pulse 89; Resp 18; Pulse Ox 100% on R/A; bh1 11:08 Body Mass Index 38.66 (83.91 kg, 147.32 cm) vg1 MDM: 11:57 Patient medically screened. ms3 12:40 Differential Diagnosis: Bronchitis Upper Respiratory Infection Pneumonia. ms3 14:32 Data reviewed: vital signs, nurses notes, lab test result(s), radiologic studies, plain ms3 films, and as a result, I will discharge patient. Data interpreted: Pulse oximetry: on room air is 94 %. Interpretation: normal. Counseling: I had a detailed discussion with the patient and/or guardian regarding: the historical points, exam findings, and any diagnostic results supporting the discharge/admit diagnosis, lab results, radiology results, the need for outpatient follow up, to return to the emergency department if symptoms worsen or persist or if there are any questions or concerns that arise at home. ED course: Discussed labs, chest x-ray, physical exam findings with patient. Patient to follow-up with primary care physician in 2 to 3 days. Patient understands and agrees with plan. All questions were answered. Return precautions discussed include worsening symptoms, or any other concerns. On reevaluation patient is alert and oriented x4, in no apparent distress, nontoxic-appearing, speaking full sentences, ambulatory in emergency department.. 09/12 11:53 Order name: SARS-COV-2 RT PCR (Document "Date of Onset" if Symptomatic); Complete Time: ms3 14:28 09/12 11:53 Order name: CBC with Diff; Complete Time: 13:14 ms3 09/12 11:53 Order name: IV Saline Lock; Complete Time: 12:35 ms3 09/12 11:53 Order name: BMP; Complete Time: 13:29 ms3 09/12 11:53 Order name: CXR XRAY; Complete Time: 13:29 ms3 09/12 11:53 Order name: Labs collected and sent; Complete Time: 12:35 ms3 Administered Medications: 12:30 Drug: Zofran (Ondansetron) 4 mg Route: IVP; Site: left hand; [facility] 12:36 Follow up: Response: No adverse reaction bh1 Disposition Summary: 09/12/21 14:29 Discharge Ordered Location: Home ms3 Condition: Stable ms3 Diagnosis - COVID 19 ms3 - Nausea ms3 - Cough ms3 Followup: ms3 - With: Homer Mendoza DO - When: 2 - 3 days - Reason: Recheck today's complaints Discharge Instructions: - Discharge Summary Sheet ms3 - COVID-19 ms3 Forms: - Medication Reconciliation Form ms3 - Thank You Letter ms3 - Antibiotic Education ms3 - Prescription Opioid Use ms3 Prescriptions: - Zofran 4 mg Oral Tablet - take 1 tablet by ORAL route every 12 hours As needed; 20 tablet; Refills: 0, ms3 Product Selection Permitted Signatures: Dispatcher [employer] Clarice Betancourt, RN RN vg1 Chuy Anthony DO DO ms3 Karolina Hinton RN RN bh1
[2021-09-12 15:16] VITALS: TEMP 97.8
[2021-09-12 15:20] VITALS: BP 98/57; O2SAT 100
== END 2021-09-12 15:01 | disposition home or self-care (01) ==
LOC: ER 10:58
DX: U07.1 COVID-19 (principal); R11.0 Nausea; E11.9 Type 2 diabetes mellitus without complications; I10 Essential (primary) hypertension; F32.A Depression, unspecified; F41.9 Anxiety disorder, unspecified; Z88.5 Allergy status to narcotic agent
CPT/HCPCS: 85025; 80048; 36415; 71045; U0003; J2405

== ENCOUNTER 2022-02-12 10:38 | Emergency (ER) | payer OTHER ==
--- NOTE | 2022-02-12 11:06 | EDPHYS ---
Physician Documentation [facility] Name: Yeimy Donohue Age: 61 yrs Sex: Female : 1960 Arrival Date: 02/12/2022 Time: 10:40 Bed 2 Private MD: ED Physician Ramiro Castillo HPI: 02/12 10:55 This 61 yrs old Female presents to ER via EMS with complaints of agitation. rn 10:55 Pt brought in by EMS today after argument with apartment complex personnel or resident. rn EMS reports that patient threw herself on floor, no seizure activity noted, no LOC. Otherwise patient without any medical complaints, no fever, no chest pain/sob/abd pain/vomiting/diarrhea. No medication changes. Denies pain. Pt states she doesn't need anything today and would like to call for a ride. . Onset: The symptoms/episode began/occurred just prior to arrival. Severity of symptoms: At their worst the symptoms were moderate in the emergency department the symptoms have resolved. It is unknown whether or not the patient has had similar symptoms in the past. The patient has not recently seen a physician. Historical: - Allergies: 10:46 Codeine; kc6 10:46 TOPROL; kc6 10:46 Tramadol HCl; kc6 - Home Meds: 10:46 metformin 1,000 mg Oral tab 1 tab 2 times per day [Active]; aspirin 81 mg oral cap kc6 [Active]; - PMHx: 10:46 Anxiety; Depression; Diabetes - NIDDM; Hypertension; High Cholesterol; Cellulitis; kc6 - PSHx: 10:46 Cholecystectomy; tubal ligation; kc6 - Immunization history:: Client reports receiving the 2nd dose of the Covid vaccine, Flu vaccine is up to date. - Social history:: Smoking status: Patient denies any tobacco usage or history of. - Family history:: not pertinent. - Hospitalizations: : No recent hospitalization is reported. ROS: 10:55 Constitutional: Negative for fever, chills, and weight loss, Eyes: Negative for injury, rn pain, redness, and discharge, Neck: Negative for injury, pain, and swelling, Cardiovascular: Negative for chest pain, palpitations, and edema, Respiratory: Negative for shortness of breath, cough, wheezing, and pleuritic chest pain, Abdomen/GI: Negative for abdominal pain, nausea, vomiting, diarrhea, and constipation, Back: Negative for injury and pain, : Negative for injury, bleeding, discharge, and swelling, MS/Extremity: Negative for injury and deformity, Skin: Negative for injury, rash, and discoloration, Neuro: Negative for headache, weakness, numbness, tingling, and seizure. Exam: 10:55 Constitutional: This is a well developed, well nourished patient who is awake, alert, rn and in no acute distress. Head/Face: Normocephalic, atraumatic. Eyes: Periorbital areas with no swelling, redness, or edema. Neck: Trachea midline, no masses palpated, and no cervical lymphadenopathy. Supple, full range of motion without nuchal rigidity, or vertebral point tenderness. No Meningismus. Cardiovascular: Regular rate and rhythm. No pulse deficits. Respiratory: No increased work of breathing, no retractions or nasal flaring. Abdomen/GI: Soft, non-tender Skin: Warm, dry with normal turgor. Normal color with no rashes, no lesions, and no evidence of cellulitis. MS/ Extremity: Pulses equal, no cyanosis. Neurovascular intact. Full, normal range of motion. Equal circumference. Neuro: Awake and alert, GCS 15, oriented to person, place, time, and situation. Cranial nerves II-XII grossly intact. Motor strength 5/5 in all extremities. Sensory grossly intact. Cerebellar exam normal. Vital Signs: 10:41 BP 137 / 67; Pulse 76; Resp 18 S; Temp 97.1(TE); Pulse Ox 99% on R/A; Weight 81.65 kg kc6 (R); Height 4 ft. 10 in. (147.32 cm) (R); Pain 0/10; 10:41 Body Mass Index 37.62 (81.65 kg, 147.32 cm) kc6 MDM: 10:40 Patient medically screened. rn 11:04 Differential Diagnosis agitation, anger. Data reviewed: vital signs, nurses notes, old rn medical records, and as a result, I will discharge patient. 11:05 Counseling: I had a detailed discussion with the patient and/or guardian regarding: the rn historical points, exam findings, and any diagnostic results supporting the discharge/admit diagnosis, the need for outpatient follow up, to return to the emergency department if symptoms worsen or persist or if there are any questions or concerns that arise at home. Response to treatment: the patient's symptoms have resolved after treatment, the patient's condition has returned to base line, the patient is now symptom free, and as a result, I will discharge patient. Special discussion: I discussed with the patient/guardian in detail that at this point there is no indication for admission to the hospital. It is understood, however, that if the symptoms persist or worsen the patient needs to return immediately for re-evaluation. Administered Medications: No medications were administered Disposition Summary: 02/12/22 11:05 Discharge Ordered Location: Home rn Problem: new rn Symptoms: have improved rn Condition: Stable rn Diagnosis - Restlessness and agitation rn Followup: rn - With: Private Physician - When: As needed - Reason: Recheck today's complaints, Re-evaluation by your physician Discharge Instructions: - Discharge Summary Sheet rn - Managing Anger, Adult rn Forms: - Medication Reconciliation Form rn - Thank You Letter rn - Antibiotic deputy commonwealth's attorney - Prescription Opioid Use rn Signatures: Ramiro Castillo MD MD rn Campbell, Kaitlyn, RN RN kc Corrections: (The following items were deleted from the chart) 11:05 10:55 Constitutional: This is a well developed, well nourished patient who is awake, rn alert, and in no acute distress. Head/Face: Normocephalic, atraumatic. Eyes: Periorbital areas with no swelling, redness, or edema. Neck: Trachea midline, no masses palpated, and no cervical lymphadenopathy. Supple, full range of motion without nuchal rigidity, or vertebral point tenderness. No Meningismus. Cardiovascular: Regular rate and rhythm. No pulse deficits. Respiratory: No increased work of breathing, no retractions or nasal flaring. Abdomen/GI: Soft, non-tender rn
--- NOTE | 2022-02-12 11:06 | ER ---
[facility] Name: Yeimy Donohue Age: 61 yrs Sex: Female : 1960 Arrival Date: 02/12/2022 Time: 10:40 Bed 2 Private MD: Diagnosis: Restlessness and agitation Presentation: 02/12 10:41 Chief complaint: EMS states: [facility] when she threw herself on the floor. Coronavirus screen: Vaccine status: Patient reports receiving the 2nd dose of the covid vaccine. At this time, the client does not indicate any symptoms associated with coronavirus-19. Ebola Screen: No symptoms or risks identified at this time. Initial Sepsis Screen: Does the patient meet any 2 criteria? No. Patient's initial sepsis screen is negative. Does the patient have a suspected source of infection? No. Patient's initial sepsis screen is negative. Risk Assessment: Do you want to hurt yourself or someone else? Patient reports no desire to harm self or others. Onset of symptoms was February 12, 2022. 10:41 Method Of Arrival: EMS: [facility] 10:41 Acuity: [place] 3 6 Triage Assessment: 10:47 General: Appears in no apparent distress. comfortable, Behavior is calm, cooperative, kc6 appropriate for age. Pain: Denies pain. EENT: No signs and/or symptoms were reported regarding the EENT system. Neuro: Woo Agitation-Sedation Scale (RASS): 0 - Alert and Calm Level of Consciousness is awake, alert, obeys commands, Oriented to person, place, time, situation, Appropriate for age. Cardiovascular: Heart tones S1 S2 present Capillary refill < 3 seconds. Respiratory: Airway is patent Trachea midline Respiratory effort is even, unlabored, Respiratory pattern is regular, symmetrical, Breath sounds are clear bilaterally. GI: No signs and/or symptoms were reported involving the gastrointestinal system. : No signs and/or symptoms were reported regarding the genitourinary system. Derm: No signs and/or symptoms reported regarding the dermatologic system. Skin is intact, Skin is pink, warm \T\ dry. Musculoskeletal: No signs and/or symptoms reported regarding the musculoskeletal system. Circulation, motion, and sensation intact. Capillary refill < 3 seconds, Range of motion: intact in all extremities. Historical: - Allergies: 10:46 Codeine; kc6 10:46 TOPROL; kc6 10:46 Tramadol HCl; kc6 - Home Meds: 10:46 metformin 1,000 mg Oral tab 1 tab 2 times per day [Active]; aspirin 81 mg oral cap kc6 [Active]; - PMHx: 10:46 Anxiety; Depression; Diabetes - NIDDM; Hypertension; High Cholesterol; Cellulitis; kc6 - PSHx: 10:46 Cholecystectomy; tubal ligation; kc6 - Immunization history:: Client reports receiving the 2nd dose of the Covid vaccine, Flu vaccine is up to date. - Social history:: Smoking status: Patient denies any tobacco usage or history of. - Family history:: not pertinent. - Hospitalizations: : No recent hospitalization is reported. Screenin:48 Abuse screen: Denies threats or abuse. Denies injuries from another. Nutritional kc6 screening: No deficits noted. Tuberculosis screening: No symptoms or risk factors identified. Fall Risk None identified. Assessment: 10:48 Reassessment: please see triage assessment. kc6 Vital Signs: 10:41 BP 137 / 67; Pulse 76; Resp 18 S; Temp 97.1(TE); Pulse Ox 99% on R/A; Weight 81.65 kg kc6 (R); Height 4 ft. 10 in. (147.32 cm) (R); Pain 0/10; 10:41 Body Mass Index 37.62 (81.65 kg, 147.32 cm) kc6 ED Course: 10:40 Patient arrived in ED. rn 10:40 Ramiro Castillo MD is Attending Physician. rn 10:41 Lori Herman RN is Primary Nurse. kc6 10:46 Triage completed. kc6 10:48 Arm band placed on. kc6 10:48 Patient has correct armband on for positive identification. Bed in low position. Call kc6 light in reach. Side rails up X2. 10:52 No provider procedures requiring assistance completed. Maintain EMS IV. Dressing kc6 intact. Good blood return noted. Site clean \T\ dry. Gauge \T\ site: 20G right hand. 11:17 IV discontinued, intact, bleeding controlled, No redness/swelling at site. Pressure kc6 dressing applied. Administered Medications: No medications were administered Medication: 10:48 VIS not applicable for this client. kc6 Outcome: 11:05 Discharge ordered by . rn 11:16 Discharged to home ambulatory. kc6 11:16 Condition: stable 11:16 Discharge instructions given to patient, Instructed on discharge instructions, Demonstrated understanding of instructions. 11:17 Patient left the ED. kc6 Signatures: Ramiro Castillo MD MD rn Lori Herman RN RN kcJennifer
[2022-02-12 14:55] VITALS: BP 137/67; TEMP 97.1; O2SAT 99
== END 2022-02-12 11:17 | disposition home or self-care (01) ==
LOC: ER 10:38
DX: R45.1 Restlessness and agitation (principal); E11.9 Type 2 diabetes mellitus without complications; I10 Essential (primary) hypertension; Z88.5 Allergy status to narcotic agent; Z88.8 Allergy status to other drugs, medicaments and biological substances
CPT/HCPCS: 99283

== ENCOUNTER 2023-01-10 21:11 | Inpatient (IN) | payer OTHER, SELFPAY ==
[2023-01-10 22:13] LABS: Absolute Lymphocytes (CBC) 1.6 K/uL (0.7-4.9); Hematocrit 42.3 % (36.0-45.0); Lymphocytes % 19.7 % (15.3-44.8); MCV 90.3 fL (80-100); MPV 8.2 fL (7.6-11.3); Platelets 245 thou/uL (152-406); RBC Red Blood Cell Count 4.69 M/uL (3.86-4.86)
[2023-01-10] MEDS ORDERED: ALBUTEROL 2.5 MG/3 ML NEB SOL ONE (22:18)
[2023-01-10] MEDS ORDERED: METHYLPREDNISOLONE 125 MG INJ ONE (22:18)
[2023-01-10] MEDS ORDERED: IPRATROPIUM BROM 0.5MG/2.5ML ONE (22:18)
[2023-01-10 22:21] LABS: Protime INR 0.98
[2023-01-10 22:30] LABS: Specific Gravity > 1.030 (1.005-1.030); Urine Bacteria None Seen /HPF (<20); Urine Bilirubin NEGATIVE (Negative); Urine Blood Negative (Negative); Urine Clarity Clear (Clear); Urine Color Light-Yellow (Yellow); Urine Crystals Unidentified Few /HPF (None Seen); Urine Glucose 4+ (Over) (Negative); Urine Mucus Slight /HPF (None Seen); Urine Protein NEGATIVE (Negative); Urine Urobilinogen Normal (Normal); Urine pH 5.5 (5.0-7.0)
[2023-01-10 22:34] LABS: ALT/SGPT 25 U/L (13-56); AST/SGOT 17 U/L (15-37); Alkaline Phosphatase 147 U/L (45-117); BUN Blood Urea Nitrogen 14 mg/dL (7-18); Bicarbonate 26 mEq/L (21-32); Bilirubin Total 0.3 mg/dL (0.2-1.0); Glomerular Filtration Rate 67 ml/min (=/>90); Glucose Level 172 mg/dL (74-106); Magnesium 1.7 mg/dL (1.6-2.4); NT PRO-BNP 168 pg/mL (<125); Potassium 3.7 mEq/L (3.5-5.1); Protein, Total 6.9 g/dL (6.4-8.2); Sodium Level 141 mEq/L (136-145); Troponin High Sensitivity 8.6 pg/mL (<58.9)
[2023-01-10 22:41] LABS: Bilirubin Direct < 0.1 mg/dL (0-0.2); Bilirubin Indirect, Calculated ND mg/dL (0.2-0.8)
--- NOTE | 2023-01-11 01:04 | ER ---
Nurse's Notes [facility] Name: Yeimy Donohue Age: 62 yrs Sex: Female : 1960 Arrival Date: 01/10/2023 Time: 21:11 Bed 20 Private MD: Diagnosis: Other pneumonia, unspecified organism Presentation: 01/10 21:25 Chief complaint: EMS states: was seen in [facility] and diagnosed with upper respi rv infection. symptoms progressed until today, with fever. oxygen sat is 91-92% in RA. administered Tylenol 1gm IV and duoneb x1 during tranportation. Coronavirus screen: At this time, the client does not indicate any symptoms associated with coronavirus-19. Ebola Screen: No symptoms or risks identified at this time. Initial Sepsis Screen: Does the patient meet any 2 criteria? No. Patient's initial sepsis screen is negative. Does the patient have a suspected source of infection? No. Patient's initial sepsis screen is negative. Risk Assessment: Do you want to hurt yourself or someone else? Patient reports no desire to harm self or others. Onset of symptoms was January 10, 2023. 21:25 Method Of Arrival: EMS rv 21:25 Acuity: [place] 3 rv Triage Assessment: 21:27 General: Appears comfortable, Behavior is calm, cooperative. Pain: Denies pain. Neuro: rv Level of Consciousness is awake, alert, obeys commands, Oriented to person, place, time, situation. Cardiovascular: Capillary refill < 3 seconds Patient's skin is warm and dry. Respiratory: Airway is patent Respiratory effort is even, unlabored. Respiratory: Reports shortness of breath at rest cough that is productive. GI: No signs and/or symptoms were reported involving the gastrointestinal system. : No signs and/or symptoms were reported regarding the genitourinary system. Derm: Skin. Historical: - Allergies: 21:27 Codeine; rv 21:27 TOPROL; rv 21:27 Tramadol HCl; rv - PMHx: 21:27 Anxiety; Cellulitis; Depression; Diabetes - NIDDM; High Cholesterol; Hypertension; rv - PSHx: 21:27 Cholecystectomy; tubal ligation; rv - Immunization history:: Adult Immunizations up to date. - Social history:: Smoking status: Patient denies any tobacco usage or history of. Screenin:29 [facility] ED Fall Risk Assessment (Adult) History of falling in the last 3 months, rv including since admission No falls in past 3 months (0 pts) Score/Fall Risk Level 0 - 2 = Low Risk Oriented to surroundings, Maintained a safe environment, Educated pt \T\ family on fall prevention, incl call for assistance when getting out of bed, Assessed \T\ reinforced patient's understanding of fall precautions, Provided non-skid footwear, Hourly rounding (assess needs \T\ fall precautionary measures) done, Used ambulatory aids as needed (educated on \T\ assisted with), Used gait belt as appropriate. Abuse screen: Denies threats or abuse. Denies injuries from another. Nutritional screening: No deficits noted. Tuberculosis screening: No symptoms or risk factors identified. Vital Signs: 21:25 BP 174 / 96; Pulse 94; Resp 18; Temp 100.5; Pulse Ox 96% on 2 lpm NC; Weight 89.5 kg; rv Height 4 ft. 10 in. ; 21:25 Body Mass Index 41.24 (89.50 kg, 147.32 cm) rv ED Course: 21:16 Patient arrived in ED. rv1 21:23 Monroe Gomez PA is PHCP. cp 21:23 Thomas Yañez MD is Attending Physician. cp 21:27 Triage completed. rv 21:27 Arm band placed on right wrist. rv 21:29 Patient has correct armband on for positive identification. Client placed on continuous rv cardiac and pulse oximetry monitoring. NIBP monitoring applied. playground monitor on. 21:29 No provider procedures requiring assistance completed. Maintain EMS IV. Dressing rv intact. Good blood return noted. Site clean \T\ dry. Gauge \T\ site: 22 right hand. 21:54 Fortino Pruett, JULIO CESAR is Primary Nurse. rv 22:57 XRAY Chest (1 view) In Process Unspecified. EDMS 11 00:40 CT Chest For PE Angio In Process Unspecified. EDMS 01:02 Colton Uribe MD is Hospitalizing Provider. cp Administered Medications: 01/10 22:16 Drug: DuoNeb Nebulize (2.5 mg - 0.5 mg) 3 ml Nebulizer once Route: Nebulizer; rv 01/11 01:02 Follow up: Response: No adverse reaction rv 01/10 22:16 Drug: MethylPrednisoLONE IVP 125 mg IVP once Route: IVP; Site: right hand; rv 01/11 01:03 Follow up: Response: No adverse reaction rv 01:02 Drug: NS 0.9% IV 1000 ml IV at 500 ml/hr Per protocol; 1000 mL bolus Route: IV; Rate: rv 500 ml/hr; Site: right forearm; 01:02 Drug: Rocephin IV 2 grams IV at calculated rate once; Given slow IV push per pharmarcy rv instructions Route: IV; Rate: calculated rate; Site: right forearm; 01:19 Drug: Zithromax IVPB 500 mg IVPB once over 1 hrs; mix in 250 mL NS Route: IVPB; Infused rv Over: 1 hrs; Site: right forearm; Medication: 01/10 21:29 VIS not applicable for this client. rv Outcome: 01/11 01:03 Decision to Hospitalize by Provider. cp 03:11 Patient left the ED. rv Signatures: Dispatcher [employer] EDMS Monroe Gomez PA PA cp Fortino Pruett RN RN Pearl Mejia rv1 Corrections: (The following items were deleted from the chart) 01/10 21:29 21:25 Chief complaint: EMS states: was seen in [facility] and diagnosed with upper rv respi infection. symptoms progressed until today, with fever. oxygen sat is 91-92% in RA. rv
--- NOTE | 2023-01-11 01:04 | EDPHYS ---
Physician Documentation [facility] Name: Yeimy Donohue Age: 62 yrs Sex: Female : 1960 Arrival Date: 01/10/2023 Time: 21:11 Bed 20 Private MD: ED Physician Thomas Yañez HPI: 01/10 21:55 This 62 yrs old Female presents to ER via EMS with complaints of Cough. cp 21:55 The patient or guardian reports cough. cp 21:55 Associated signs and symptoms: Pertinent positives: chest pain, with cough, fever, cp Pertinent negatives: diarrhea, vomiting. 21:55 Severity of symptoms: in the emergency department the symptoms are unchanged. Patient cp reports she is currently taking prescribed Amoxicillin for upper respiratory symptoms. Historical: - Allergies: 21:27 Codeine; rv 21:27 TOPROL; rv 21:27 Tramadol HCl; rv - PMHx: 21:27 Anxiety; Cellulitis; Depression; Diabetes - NIDDM; High Cholesterol; Hypertension; rv - PSHx: 21:27 Cholecystectomy; tubal ligation; rv - Immunization history:: Adult Immunizations up to date. - Social history:: Smoking status: Patient denies any tobacco usage or history of. ROS: 22:00 Constitutional: Positive for fever, Negative for poor PO intake, cp 22:00 Eyes: Negative for injury, pain, redness, and discharge, cp 22:00 ENT: Negative for drainage from ear(s), ear pain, difficulty swallowing, difficulty handling secretions, 22:00 Cardiovascular: Positive for chest pain, with cough, 22:00 Respiratory: Positive for cough, shortness of breath, 22:00 Abdomen/GI: Negative for abdominal pain, vomiting, diarrhea, constipation, 22:00 Neuro: Negative for altered mental status, 22:00 All other systems are negative, Exam: 21:53 ECG was reviewed by the Attending Physician. cp 22:05 Constitutional: The patient appears in no acute distress, alert, awake, cp non-diaphoretic, non-toxic, well developed, well nourished, overweight 22:05 Head/Face: Normocephalic, atraumatic. cp 22:05 Eyes: Periorbital structures: appear normal, Conjunctiva: normal, no exudate, no injection, Sclera: no appreciated abnormality, Lids and lashes: appear normal, bilaterally, 22:05 ENT: External ear(s): are unremarkable, Nose: is normal, Mouth: Lips: moist, Oral mucosa: pink and intact, moist, Posterior pharynx: is normal, airway is patent, no erythema, no exudate, 22:05 Neck: ROM/movement: is normal, is supple, without pain, no range of motions limitations, 22:05 Chest/axilla: Inspection: normal, 22:05 Cardiovascular: Rate: normal, Rhythm: regular, Edema: is not appreciated, JVD: is not appreciated, 22:05 Respiratory: the patient does not display signs of respiratory distress, Respirations: labored breathing, that is mild, Breath sounds: decreased breath sounds, that are mild, throughout, stridor, is not appreciated, wheezing: that is mild, is heard diffusely, 22:05 Abdomen/GI: Inspection: abdomen appears normal, Palpation: abdomen is soft and non-tender, in all quadrants, 22:05 Back: pain, is absent, ROM is normal, 22:05 Skin: no rash present. Vital Signs: 21:25 BP 174 / 96; Pulse 94; Resp 18; Temp 100.5; Pulse Ox 96% on 2 lpm NC; Weight 89.5 kg; rv Height 4 ft. 10 in. ; 21:25 Body Mass Index 41.24 (89.50 kg, 147.32 cm) rv MDM: 21:23 Patient medically screened. cp 01/11 01:05 Data reviewed: vital signs, nurses notes, lab test result(s), EKG, radiologic studies, cp CT scan, plain films. 01:05 Differential diagnosis: bronchitis, flu, pneumonia, pulmonary embolism, sepsis. cp Consideration of Admission/Observation Patient was admitted/placed on observation. Management of patient was discussed with the following: Hospitalist: DR Uribe will admit after discussion. Independent interpretation of the following test(s) in the Emergency Department EKG: See my EKG interpretation above. Care significantly affected by the following chronic conditions: Diabetes, Hypertension. Counseling: I had a detailed discussion with the patient and/or guardian regarding the historical points, exam findings, and any diagnostic results supporting the discharge/admit diagnosis, lab results, radiology results. 01/10 21:53 Order name: Basic Metabolic Panel; Complete Time: 23:59 cp 01/11 00:00 Interpretation: Normal except: GLUC 172; GFR 67; CA 8.3. cp 01/10 21:53 Order name: CBC with Diff; Complete Time: 22:40 01/10 21:53 Order name: LFT's; Complete Time: 23:59 cp 01/11 00:00 Interpretation: Normal except: ALK 147; ALB 3.0; GLOB 3.9; A/G 0.8. 01/10 21:53 Order name: Magnesium; Complete Time: 23:59 cp 01/10 21:53 Order name: NT PRO-BNP; Complete Time: 23:59 cp 01/10 21:53 Order name: PT-INR; Complete Time: 22:40 01/10 21:53 Order name: Troponin HS; Complete Time: 23:59 cp 01/10 21:53 Order name: Influenza Screen (a \T\ B); Complete Time: 22:40 01/10 21:53 Order name: Strep 01/10 21:53 Order name: COVID-19 SARS RT PCR; Complete Time: 23:59 01/10 21:53 Order name: Urinalysis W/Microscopic; Complete Time: 22:40 01/10 22:40 Interpretation: Normal except: Urine SG > 1.030; UGLUC 4+ (Over); URBC 5-10. 01/10 21:53 Order name: Lactate w/ 2H reflex if indic.; Complete Time: 23:59 01/11 00:00 Interpretation: Abnormal: LAC 2.8. 01/10 22:38 Order name: Throat Culture EDOH 01/11 01:45 Order name: Lactate w/ 2H reflex if indic. cp 01/11 01:18 Order name: Lactate w/ 2H reflex if indic. EDMS 01/11 02:25 Order name: CBC with Automated Diff EDMS 01/11 02:25 Order name: CBC with Automated Diff EDMS 01/11 02:25 Order name: Comprehensive Metabolic Panel EDOH 01/11 02:25 Order name: Comprehensive Metabolic Panel EDMS 01/10 21:53 Order name: XRAY Chest (1 view) 01/11 00:02 Order name: CT Chest For PE Angio 01/10 21:53 Order name: EKG; Complete Time: 21:54 01/10 21:53 Order name: Cardiac monitoring; Complete Time: 21:55 01/10 21:53 Order name: EKG - Nurse/Tech; Complete Time: 21:55 cp 01/10 21:53 Order name: IV Saline Lock; Complete Time: 21:55 cp 01/10 21:53 Order name: Labs collected and sent; Complete Time: 21:55 cp 01/10 21:53 Order name: O2 Per Protocol; Complete Time: 21:55 cp 01/10 21:53 Order name: O2 Sat Monitoring; Complete Time: 21:55 cp EC/04 21:53 Rate is 93 beats/min. Rhythm is regular. NH interval is normal. QRS interval is normal. cp QT interval is normal. T waves are Inverted in leads III, aVR. Interpreted by me. Reviewed by me. Administered Medications: 22:16 Drug: DuoNeb Nebulize (2.5 mg - 0.5 mg) 3 ml Nebulizer once Route: Nebulizer; rv 01/11 01:02 Follow up: Response: No adverse reaction rv 01/10 22:16 Drug: MethylPrednisoLONE IVP 125 mg IVP once Route: IVP; Site: right hand; rv 01/11 01:03 Follow up: Response: No adverse reaction rv 01:02 Drug: NS 0.9% IV 1000 ml IV at 500 ml/hr Per protocol; 1000 mL bolus Route: IV; Rate: rv 500 ml/hr; Site: right forearm; 01:02 Drug: Rocephin IV 2 grams IV at calculated rate once; Given slow IV push per pharmarcy rv instructions Route: IV; Rate: calculated rate; Site: right forearm; 01:19 Drug: Zithromax IVPB 500 mg IVPB once over 1 hrs; mix in 250 mL NS Route: IVPB; Infused rv Over: 1 hrs; Site: right forearm; Disposition: 21:18 Co-signature as Attending Physician, Thomas Yañez MD I agree with the assessment sp4 and plan of care. I reviewed the patient's care provided by the Advanced Practice Provider and agree with the diagnosis and treatment plan. Disposition Summary: 01/11/23 01:03 Hospitalization Ordered Notes: Hospitalization Status: Inpatient Admission cp Provider: Colton Uribe cp [facility] cp Condition: Stable cp Problem: new cp Symptoms: have improved cp Bed/Room Type: Standard cp Room Assignment: 206(01/11/23 02:26) augie Diagnosis - Other pneumonia, unspecified organism cp Forms: - Medication Reconciliation Form cp - SBAR form cp - Leadership Thank You Letter cp Signatures: Dispatcher [employer] Mary Kay Martins RN RN Monroe Valdes PA PA cp Vicente, Ronaldo, RN RN rv Potepalov, Sergey, MD MD sp4 Corrections: (The following items were deleted from the chart) 02:26 01:03 raz ghosh
[2023-01-11] MEDS ORDERED: NA CHLORIDE 0.9% 1,000 ML ONE (01:09)
[2023-01-11] MEDS ORDERED: AZITHROMYCIN 500 MG INJ IVPB ONE (01:09)
[2023-01-11] MEDS ORDERED: NA CHLORIDE 0.9% 250 ML ONE (01:09)
[2023-01-11] MEDS ORDERED: NA CHLORIDE 0.9% 100 ML ONE (01:09)
[2023-01-11] MEDS ORDERED: CEFTRIAXONE 2000 MG/VIAL ONE (01:09)
[2023-01-11] MEDS ORDERED: MORPHINE 2 MG/ML SYR IV PRN (02:19)
[2023-01-11] MEDS ORDERED: ALBUTEROL 2.5 MG/3 ML NEB SOL NEB PRN (02:19)
[2023-01-11] MEDS ORDERED: ONDANSETRON 4 MG/2 ML VIAL IV PRN (02:19)
--- NOTE | 2023-01-11 02:19 | P.HP ---
Certification for Inpatient Patient admitted to: Inpatient With expected LOS: >2 Midnights Patient will require the following post-hospital care: None Practitioner: I am a practitioner with admitting privileges, knowledge of patient current condition, hospital course, and medical plan of care. Services: Services provided to patient in accordance with Admission requirements found in Title 42 Section 412.3 of the Code of Federal Regulations Patient History Date of Service: 01/11/23 Reason for admission: Cough and shortness of breath and fever History of Present Illness: 62 yo female with past medical history of Anxiety; Cellulitis; Depression; Diabetes - NIDDM; High Cholesterol; Hypertension who started having cough and upper respiratory tract symptoms and was seen in PCPs office and was started on amoxicillin. But the patient started having shortness of breath and worsening of cough and upper respiratory tract symptoms and was brought to ER. Patient stated that symptoms have been going on for the last few days and has been progressively worsening. Associated with subjective fever and chills. Cough is productive with mucoid expectoration. Associated with chest discomfort and pain. Denies any hemoptysis. No nausea vomiting or diarrhea . Patient was assessed in the ER was admitted for further management of pneumonia and lactic acidosis Allergies tramadol Allergy (Verified 01/15/16 07:28) could not talk acetaminophen [From Tylenol-Codeine #3] Adverse Reaction (Verified 01/15/16 07:28) chest pain codeine [From Tylenol-Codeine #3] Adverse Reaction (Verified 01/15/16 07:28) chest pain metoprolol [From Toprol XL] Adverse Reaction (Verified 01/15/16 07:28) unknown Home medications list reviewed: Yes Home Medications: Canagliflozin [Invokana] 100 mg PO DAILY 04/21/14 Metformin HCl [Glucophage] 1,000 mg PO BIDWM 04/21/14 Simvastatin 20 mg PO DAILY 04/21/14 Venlafaxine HCl *Xr* [Effexor XR] 75 mg PO DAILY 07/01/15 Buspirone HCl [Buspar] 15 mg PO DAILY 09/24/15 Carvedilol 12.5 mg PO BID 09/24/15 oxyBUTYnin chloride [Ditropan*] 5 mg PO BID 09/24/15 Ondansetron [Zofran Odt] 8 mg PO Q6H PRN #20 tab.rapdis 11/22/15 Acetaminophen [Tylenol] 975 mg PO DAILY PRN 01/15/16 Aspirin [Uziel Chewable] 81 mg PO DAILY 01/15/16 Hydrocodone/Acetaminophen [Freeland 5-325 Tablet] 1 each PO DAILY PRN 01/15/16 - Past Medical/Surgical History Diabetic: Yes Past Medical History: Reviewed- Non-Contributory -: Diabetes mellitus type 2 -: Depression with anxiety -: Hypertension -: Hyperlipidemia -: Large ventral hernia -: Morbid obesity -: Urinary incontinence -: Diabetic neuropathy -: Questionable history of seizures -: Questionable history of mental retardation. Past Surgical History: Reviewed- Non-Contributory -: Cholecystectomy -: 2 abdominal wall hernia repairs -: Tubal ligation Psychosocial/ Personal History: She is a . She has 2 children. She currently lives by herself. She reports that she is able to take care of herself. - Family History Family History: Reviewed- Non-Contributory - Family History Father -: Cancer (Brain tumor) Notes: brain CA 4 MOM -: Cancer (Liver cancer) Notes: lung CA, liver CA - Social History Alcohol use: No CD- Drugs: No Caffeine use: Yes Review of Systems 10-point ROS is otherwise unremarkable General: Fever, Chills, Weakness Eyes: Unremarkable ENT: Unremarkable Respiratory: Cough, Dry, Shortness of Breath, SOB with Excertion Cardiovascular: Unremarkable Gastrointestinal: Unremarkable Genitourinary: Unremarkable Musculoskeletal: Unremarkable Neurological: Unremarkable Lymphatics: Unremarkable Physical Examination - Vital Signs Temperature: 98.6 F Blood Pressure: 148/98 Pulse: 78 Respirations: 18 Pulse Ox (%): 98 - Physical Exam General: Alert, Oriented x3, Cooperative, Obese HEENT: Atraumatic, Normocephalic Neck: Supple, 2+ carotid pulse no bruit Respiratory: Diminished, Crackles/rales, Expiratory wheezes Cardiovascular: No edema, Regular rate/rhythm, Normal S1 S2 Capillary refill: <2 Seconds Gastrointestinal: Soft and benign, W/out hepatosplenomegaly Musculoskeletal: No clubbing, No swelling Integumentary: No rashes Neurological: Normal gait, Normal strength at 5/5 x4 extr, Cranial nerves 3-12 intact, Normal reflexes 2+ Lymphatics: No axilla or inguinal lymphadenopathy - Studies Laboratory Data (last 24 hrs) 01/10/23 01/10/23 01/10/23 21:55 21:55 21:55 WBC 8.00 Hgb 14.8 Hct 42.3 Plt Count 245 PT 10.8 INR 0.98 Sodium 141 Potassium 3.7 BUN 14 Creatinine 0.95 Glucose 172 H Magnesium 1.7 Total Bilirubin 0.3 AST 17 ALT 25 Alkaline Phosphatase 147 H Microbiology Data (last 24 hrs): 01/10/23 21:59 Throat Group A Streptococcus Rapid Screen - Final 01/10/23 21:59 Nasopharnyx Influenza Type A Antigen Screen - Final 01/10/23 21:59 Nasopharnyx Influenza Type B Antigen Screen - Final Assessment and Plan - Problems (Diagnosis) (1) Sepsis Current Visit: Yes Status: Acute Plan: Sepsis possibly due to pneumonia Started on IV hydration Antibiotics started We will obtain cultures Change antibiotic as per sensitivity Lactic acidosis noted We will trend lactic acid levels (2) Pneumonia Current Visit: Yes Status: Acute Plan: X-ray findings noted Monitor closely on telemetry Started on IV antibiotic Started on IV antacids as well Bronchodilators as needed (3) Depression with anxiety Onset Date: 11/21/15 Current Visit: No Status: Chronic Plan: Continue home medications and titrate as needed (4) Diabetes mellitus Onset Date: 11/21/15 Current Visit: No Status: Chronic Plan: Insulin sliding scale Accu-Chek before every meal and at bedtime We will get an A1c in a.m. Qualifiers: Diabetes mellitus type: type 2 Diabetes mellitus usp insulin use: unspecified usp insulin use status Diabetes mellitus complication status: with neurologic complications Diabetes mellitus complication detail: with unspecified neuropathy Qualified Code(s): E11.40 - Type 2 diabetes mellitus with diabetic neuropathy, unspecified (5) Hyperlipidemia Current Visit: No Status: Chronic Plan: Continue statin Qualifiers: Hyperlipidemia type: unspecified Qualified Code(s): E78.5 - Hyperlipidemia, unspecified (6) Hypertension Current Visit: No Status: Chronic Plan: Antihypertensives titrated Hydralazine as needed Monitor closely under telemetry Qualifiers: Hypertension type: essential hypertension Discharge Plan: Home Plan to discharge in: 48 Hours - Advance Directives Does patient have a Living Will: No Does patient have a Durable POA for Healthcare: No - Code Status/Comfort Care Code Status: Full Code Physician Review: Patient Assessed, Agree with Above Assessment and Plan Time Spent Managing Pts Care (In Minutes): 48
[2023-01-11] MEDS ORDERED: NA CHLORIDE 0.9% 1,000 ML IV SCH (03:00)
[2023-01-11 03:33] VITALS: BMI 40.7
[2023-01-11] MEDS ORDERED: guaiFENesin 100 MG/5 ML UCUP PO PRN (04:01)
[2023-01-11] MEDS: ACETAMINOPHEN 500 MG TAB PO PRN ×2 (04:11→09:33)
[2023-01-11] MEDS: GUAIFENESIN/CODEINE 5ML UCUP PO PRN ×2 (04:16→19:56)
[2023-01-11] MEDS: INSULIN REGULAR (HUMAN) 100 UNIT/ML SQ SCH ×4 (07:30→19:58)
[2023-01-11] MEDS: ASPIRIN 81 MG CHEWABLE TABLET PO SCH (09:14)
[2023-01-11] MEDS: carvediloL 12.5 MG TAB PO SCH ×2 (09:15→19:56)
[2023-01-11] MEDS: oxyBUTYnin chloride 5 MG TAB PO SCH ×2 (09:15→19:57)
[2023-01-11] MEDS: VENLAFAXINE HCL XR 75 MG CAP PO SCH (09:15)
[2023-01-11] MEDS ORDERED: FUROSEMIDE 40 MG/4 ML VIAL IV ONE (09:17)
[2023-01-11] MEDS: CEFTRIAXONE 1,000 MG in NA CHLORIDE 0.9% 50 ML IVPB SCH (09:17)
--- NOTE | 2023-01-11 11:47 | P.PN ---
Date of Service: 01/11/23 Patient seen and examined. She is complaining of persistent cough. Associated shortness of breath. She has been afebrile. Diagnosis: URI Suspected COPD exacerbation versus acute viral infective bronchitis. Plan: Bronchodilators Supportive measures Analgesics as needed. Patient denies any history of COPD Empiric antibiotics. Bronchodilators.
[2023-01-11] MEDS ORDERED: ALBUTEROL 2.5 MG/3 ML NEB SOL NEB SCH (12:00)
[2023-01-11] MEDS ORDERED: INFLUENZA VACCINE (for 6+ mo) 0.5 ML DOSE IMVAC ONE (12:00)
[2023-01-11] MEDS: AZITHROMYCIN IV 500 MG in NA CHLORIDE 0.9% 250 ML IVPB SCH (12:07)
--- NOTE | 2023-01-11 13:27 | RAD REPORT ---
EXAM DESCRIPTION: CT - Chest For Pe Angio - 01/11/2023 6:47 am CLINICAL HISTORY: Cough; SOB TECHNIQUE: Axial computed tomographic angiography images of the chest with intravenous contrast. S agittal and coronal reformatted images were created and reviewed. This CT exam was performed using one or more of the following dose reduction techniques: automated exposure control, adjustment of t he mA and/or kV according to patient size, and/or use of iterative reconstruction technique. MIP reconstructed images were created and reviewed. COMPARISON: No relevant prior studies available. FINDINGS: Artifacts: Motion artifact degrades image quality and limits evaluation of segmental and subsegmental vessels. Pulmonary arteries: Unremarkable. No central or proximal segmental pulmonary arterial filling def ects. Aorta: Mild atherosclerotic disease. No thoracic aortic aneurysm. Lungs: Mosaic attenuation most pronounced at the lung bases. No mass. Pleural space: Unremarkable. No significant effusion. No pneumothorax. Heart: The heart is mildly enlarged. Coronary artery calcification. No significant pericardial effusion. No evidence of RV dysfunction. Bones/joints: Multilevel spondylosis. Remote right lateral 6th and 7th rib fractures. No acute fracture. No dislocation. Soft tissues: Unremarkable. Lymph nodes: Unremarkable. No enlarged lymph nodes. Liver: The liver is enlarged. Gallbladder and bile ducts: Prior cholecystectomy. IMPRESSION: 1. Motion artifact degrades image quality and limits evaluation of segmental and subse gmental vessels. No central or proximal segmental pulmonary embolic disease. 2. Mosaic attenuation most pronounced at the lung bases. Differential considerations include smal l airways disease, small vessel disease and interstitial infiltrates. 3. Other findings as above. Electronically signed by: Maryjane La MD 01/11/2023 1:28 AM [employer] Due to temporary technical issues with the PACS/Fluency reporting system, reports are being signed by the in house radiologists without review as a courtesy to insure prompt reporting. The interpreting radiologist is fully responsible for the content of the report.
--- NOTE | 2023-01-11 14:36 | RAD REPORT ---
EXAM DESCRIPTION: RAD - Chest Single View - 01/10/2023 10:55 pm CLINICAL HISTORY: 2 years Female, SOB COMPARISON: Chest radiograph dated 06/30/2022 FINDINGS: No focal lung consolidation. No pleural effusion. No pneumothorax. Cardiomediastinal silhouette is within normal limits. No acute osseous abnormality. IMPRESSION: No acute cardiopulmonary disease. Electronically signed by: Fady Cervantes DO 01/10/2023 11:32 PM CDT Due to temporary technical issues with the PACS/Fluency reporting system, reports are being signed by the in house radiologists without review as a courtesy to insure prompt reporting. The interpreting radiologist is fully responsible for the content of the report.
[2023-01-11] MEDS: CHLORASEPTIC LOZENGES PO PRN (19:55)
[2023-01-11] MEDS: ATORVASTATIN 10 MG TAB PO SCH (19:57)
[2023-01-12 02:55] LABS: Hematocrit 42.4 % (36.0-45.0)
[2023-01-12 03:01] LABS: Absolute Lymphocytes (CBC) 1.3 K/uL (0.7-4.9); Lymphocytes % 15.2 % (15.3-44.8); MCV 89.7 fL (80-100); MPV 8.1 fL (7.6-11.3); Platelets 248 thou/uL (152-406); RBC Red Blood Cell Count 4.73 M/uL (3.86-4.86)
[2023-01-12 03:24] LABS: Albumin 3.3 g/dL (3.4-5.0); Bilirubin Total 0.4 mg/dL (0.2-1.0); Potassium 3.8 mEq/L (3.5-5.1); Protein, Total 7.4 g/dL (6.4-8.2)
[2023-01-12] MEDS: INSULIN REGULAR (HUMAN) 100 UNIT/ML SQ SCH ×4 (07:30→21:56)
[2023-01-12] MEDS: AZITHROMYCIN IV 500 MG in NA CHLORIDE 0.9% 250 ML IVPB SCH (08:16)
[2023-01-12] MEDS: ASPIRIN 81 MG CHEWABLE TABLET PO SCH (08:17)
[2023-01-12] MEDS: oxyBUTYnin chloride 5 MG TAB PO SCH ×2 (08:17→21:56)
[2023-01-12] MEDS: VENLAFAXINE HCL XR 75 MG CAP PO SCH (08:17)
[2023-01-12] MEDS: CEFTRIAXONE 1,000 MG in NA CHLORIDE 0.9% 50 ML IVPB SCH (08:17)
[2023-01-12] MEDS: carvediloL 12.5 MG TAB PO SCH ×2 (08:17→21:57)
[2023-01-12] MEDS: ACETAMINOPHEN 500 MG TAB PO PRN (08:17)
--- NOTE | 2023-01-12 09:17 | P.DS ---
Admission Date: 01/11/23 Discharge Date: 01/12/23 Disposition: ROUTINE DISCHARGE Discharge Condition: FAIR Reason for Admission: Cough and shortness of breath and fever Vital Signs/Physical Exam: Temp Pulse Resp BP Pulse Ox 98.8 F 99 H 20 174/73 H 91 01/12/23 04:00 01/12/23 04:00 01/12/23 04:00 01/12/23 04:00 01/12/23 04:00 Laboratory Data at Discharge: WBC 8.80 thou/uL (4.3-10.9) 01/12/23 02:10 Hgb 15.0 g/dL (12.0-15.0) 01/12/23 02:10 Hct 42.4 % (36.0-45.0) 01/12/23 02:10 Plt Count 248 thou/uL (152-406) 01/12/23 02:10 PT 10.8 SECONDS (9.5-12.5) 01/10/23 21:55 INR 0.98 01/10/23 21:55 Sodium 137 mEq/L (136-145) 01/12/23 02:10 Potassium 3.8 mEq/L (3.5-5.1) 01/12/23 02:10 BUN 12 mg/dL (7-18) 01/12/23 02:10 Creatinine 0.63 mg/dL (0.55-1.02) 01/12/23 02:10 Glucose 131 mg/dL (74-106) H 01/12/23 02:10 Magnesium 1.7 mg/dL (1.6-2.4) 01/10/23 21:55 Total Bilirubin 0.4 mg/dL (0.2-1.0) 01/12/23 02:10 AST 28 U/L (15-37) 01/12/23 02:10 ALT 31 U/L (13-56) 01/12/23 02:10 Alkaline Phosphatase 155 U/L (45-117) H 01/12/23 02:10 Home Medications: Canagliflozin [Invokana] 300 mg PO SEECOM 04/21/14 Metformin HCl [Glucophage] 1,000 mg PO BIDWM 04/21/14 Simvastatin 20 mg PO BEDTIME 04/21/14 Buspirone HCl [Buspar] 15 mg PO BID 09/24/15 Carvedilol 12.5 mg PO DAILY 09/24/15 Aspirin [Uziel Chewable Aspirin] 81 mg PO DAILY 01/15/16 Glimepiride 2 mg PO SEECOM 01/11/23 Losartan Potassium 50 mg PO DAILY 01/11/23 Albuterol Sulfate [Albuterol Sulfate Hfa] 8.5 gm IH QID PRN #1 inh 01/12/23 Azithromycin Tab [Zithromax*] 250 mg PO DAILY #5 tab 01/12/23 Benzocaine/Menthol [Chloraseptic Sore Throat Lozng] 1 hoang PO Q4H PRN #30 hoang 01/12/23 Venlafaxine HCl *Xr* [Effexor XR] 75 mg PO DAILY cap 01/12/23 guaiFENesin [Robitussin 100MG/5ML*] 10 ml PO QID PRN #1 bottle 01/12/23 oxyBUTYnin chloride [Ditropan*] 5 mg PO BID tab 01/12/23 New Medications: Albuterol Sulfate [Albuterol Sulfate Hfa] 8.5 gm IH QID PRN #1 inh PRN Reason: Shortness Of Breath Benzocaine/Menthol [Chloraseptic Sore Throat Lozng] 1 hoang PO Q4H PRN #30 hoang PRN Reason: Sore Throat guaiFENesin [Robitussin 100MG/5ML*] 10 ml PO QID PRN #1 bottle PRN Reason: Cough Azithromycin Tab [Zithromax*] 250 mg PO DAILY #5 tab
--- NOTE | 2023-01-12 12:21 | P.PN ---
Subjective Date of Service: 01/12/23 Chief Complaint: Cough and shortness of breath and fever Patient reports generalized weakness and fatigue. She states her cough and sore throat are better. She has been stable on room air, no hypoxia. Physical Examination - Vital Signs Temperature: 97.2 F Blood Pressure: 195/90 Pulse: 94 Respirations: 16 Pulse Ox (%): 95 - Studies Microbiology Data (last 24 hrs): 01/10/23 21:59 Throat Group A Streptococcus Rapid Screen - Final 01/10/23 21:59 Throat Culture & Sensitivity - Final NORMAL UPPER RESPIRATORY FEDER[place] GROWN. Assessment And Plan - Plan Physical Exam General: Alert, Oriented x3, Cooperative, Obese HEENT: No pharyngeal edema. Neck: Supple, 2+ carotid pulse no bruit Respiratory: Scattered expiratory wheezes, adequate breath sounds. Cardiovascular: No edema, Regular rate/rhythm, Normal S1 S2 Gastrointestinal: Soft and benign, W/out hepatosplenomegaly Musculoskeletal: No swelling Neurological: Normal gait, Normal strength at 5/5 x4 extr, Cranial nerves 3-12 intact, Normal reflexes 2+ Lymphatics: No axilla or inguinal lymphadenopathy Diagnosis Acute respiratory failure with hypoxia Acute infective bronchitis Suspected COPD exacerbation Generalized weakness Near syncope Hypertension Acute infective bronchitis/acute respiratory failure with hypoxia COPD exacerbation Chest x-ray with mild evidence of possible atelectasis versus infiltrate Continue antibiotic. Bronchodilators. Short course of oral prednisone. Blood cultures: No growth. Patient is currently stable on room air. She is not hypoxic with ambulation. Generalized weakness/near syncopy Stable blood pressure Monitor. Depression with anxiety Continue home medications and titrate as needed Diabetes mellitus Insulin sliding scale Accu-Chek before every meal and at bedtime Hyperlipidemia Continue home dose statin Hypertension Uncontrolled Continue home antihypertensives. Hydralazine as needed Monitor closely under telemetry DVT prophylaxis: Lovenox
[2023-01-12] MEDS ORDERED: HYDRALAZINE HCL 20 MG/ML VIAL IV PRN (12:44)
[2023-01-12] MEDS: LOSARTAN POTASSIUM 50 MG TABLET PO SCH (13:05)
[2023-01-12] MEDS ORDERED: ENOXAPARIN 40 MG/0.4 ML SQ SCH (17:00)
[2023-01-12] MEDS: CHLORASEPTIC LOZENGES PO PRN (18:00)
[2023-01-12] MEDS: BUSPIRONE HCL 15 MG TABLET PO SCH (21:56)
[2023-01-12] MEDS: ATORVASTATIN 10 MG TAB PO SCH (21:56)
[2023-01-13 03:14] LABS: Absolute Lymphocytes (CBC) 2.4 K/uL (0.7-4.9); Lymphocytes % 39.1 % (15.3-44.8); MCV 89.2 fL (80-100); MPV 7.7 fL (7.6-11.3); Platelets 236 thou/uL (152-406)
[2023-01-13 03:31] LABS: Potassium 3.5 mEq/L (3.5-5.1)
[2023-01-13] MEDS: INSULIN REGULAR (HUMAN) 100 UNIT/ML SQ SCH (07:30)
--- NOTE | 2023-01-13 08:22 | P.DS ---
Admission Date: 01/11/23 Discharge Date: 01/13/23 Disposition: ROUTINE DISCHARGE Discharge Condition: FAIR Reason for Admission: Cough and shortness of breath and fever Brief History of Present Illness: 62yo F, PMH: Anxiety; Cellulitis; Depression; Diabetes - NIDDM; High Cholesterol; Hypertension Patient started having cough and upper respiratory tract symptoms and was seen in PCPs office and was started on amoxicillin. But the patient started having shortness of breath and worsening of cough and upper respiratory tract symptoms and was brought to ER. Patient stated that symptoms have been going on for the last few days and has been progressively worsening. Associated with subjective fever and chills. Cough is productive with mucoid expectoration. Associated with chest discomfort and pain. Denies any hemoptysis. No nausea vomiting or diarrhea . Hospital Course: Diagnosis Acute hypoxic respiratory failure secondary to Acute infective bronchitis/COPD exacerbation Generalized weakness Near syncope NIDDM2 Hypertension Hyperlipidemia Anxiety/Depression Patient presented with worsening short of breath, productive cough associated with subjective chills/fever. CXR noted mild evidence of possible atelectasis versus infiltrate concerning for infectious bronchitis. CTA chest findings limited by motion artifact but no embolus noted. Patient was given empiric antibiotics, bronchodilators, nebs, and short course of oral prednisone and had improvement of her symptoms. Patient was breathing more comfortably on room air, +no hypoxia when ambulating. Patient remained afebrile for > 48 hours without leukocytosis, breathing improved, and was deemed stable for discharge home. Advised to follow up with pulmonology at outpatient for further monitoring / work up. Patient is to complete 5 more days of augmentin and azithromycin on discharge. 01/12 Patient was about to get discharged when patient became disoriented and had a near syncopal episode. Patient never hit the floor nor did she lose consciousness. Patient was monitored overnight. No further episodes. Medications: Prednisone x3 days Augmentin x5 days azithryomycin x5 days Albuterol inhaler as needed Robitussin cough medicine as needed Follow up: PCP 3-5 days Pulmonology in next few weeks Physical Exam: GEN: Alert, oriented, NAD HEENT: Normal conjunctiva, sclera anicteric CV: Regular rate and rhythm, no edema Pulm: Nonlabored respirations on room air, mildly diminished at bases b/l; mild wheeze ABD: Soft, no tenderness, nondistended Neuro: Normal speech, normal affect Vital Signs/Physical Exam: Temp Pulse Resp BP Pulse Ox 98.3 F 93 H 18 122/61 92 01/13/23 04:00 01/13/23 04:00 01/13/23 04:00 01/13/23 04:00 01/13/23 04:00 Laboratory Data at Discharge: WBC 6.20 thou/uL (4.3-10.9) 01/13/23 02:47 Hgb 14.6 g/dL (12.0-15.0) 01/13/23 02:47 Hct 41.0 % (36.0-45.0) 01/13/23 02:47 Plt Count 236 thou/uL (152-406) 01/13/23 02:47 PT 10.8 SECONDS (9.5-12.5) 01/10/23 21:55 INR 0.98 01/10/23 21:55 Sodium 137 mEq/L (136-145) 01/13/23 02:47 Potassium 3.5 mEq/L (3.5-5.1) 01/13/23 02:47 BUN 13 mg/dL (7-18) 01/13/23 02:47 Creatinine 0.68 mg/dL (0.55-1.02) 01/13/23 02:47 Glucose 140 mg/dL (74-106) H 01/13/23 02:47 Magnesium 2.0 mg/dL (1.6-2.4) 01/13/23 02:47 Total Bilirubin 0.4 mg/dL (0.2-1.0) 01/12/23 02:10 AST 28 U/L (15-37) 01/12/23 02:10 ALT 31 U/L (13-56) 01/12/23 02:10 Alkaline Phosphatase 155 U/L (45-117) H 01/12/23 02:10 Home Medications: Canagliflozin [Invokana] 300 mg PO SEECOM 04/21/14 Metformin HCl [Glucophage] 1,000 mg PO BIDWM 04/21/14 Simvastatin 20 mg PO BEDTIME 04/21/14 Buspirone HCl [Buspar] 15 mg PO BID 09/24/15 Carvedilol 12.5 mg PO DAILY 09/24/15 Aspirin [Uziel Chewable Aspirin] 81 mg PO DAILY 01/15/16 Glimepiride 2 mg PO SEECOM 01/11/23 Losartan Potassium 50 mg PO DAILY 01/11/23 Albuterol Sulfate [Albuterol Sulfate Hfa] 8.5 gm IH QID PRN #1 inh 01/12/23 Azithromycin Tab [Zithromax*] 250 mg PO DAILY #5 tab 01/12/23 Benzocaine/Menthol [Chloraseptic Sore Throat Lozng] 1 hoang PO Q4H PRN #30 hoang 01/12/23 Venlafaxine HCl *Xr* [Effexor XR] 75 mg PO DAILY cap 01/12/23 guaiFENesin [Robitussin 100MG/5ML*] 10 ml PO QID PRN #1 bottle 01/12/23 oxyBUTYnin chloride [Ditropan*] 5 mg PO BID tab 01/12/23 Amox/Clavulanate [Augmentin 875-125 Tab] 1 each PO BID 5 Days #10 tab 01/13/23 predniSONE [Prednisone*] 20 mg PO BID 3 Days #6 tab 01/13/23 New Medications: Albuterol Sulfate [Albuterol Sulfate Hfa] 8.5 gm IH QID PRN #1 inh PRN Reason: Shortness Of Breath Amox/Clavulanate [Augmentin 875-125 Tab] 1 each PO BID 5 Days #10 tab Benzocaine/Menthol [Chloraseptic Sore Throat Lozng] 1 hoang PO Q4H PRN #30 hoang PRN Reason: Sore Throat predniSONE [Prednisone*] 20 mg PO BID 3 Days #6 tab guaiFENesin [Robitussin 100MG/5ML*] 10 ml PO QID PRN #1 bottle PRN Reason: Cough Azithromycin Tab [Zithromax*] 250 mg PO DAILY #5 tab Physician Discharge Instructions: Patient presented with worsening short of breath, productive cough associated with subjective chills/fever. CXR noted mild evidence of possible atelectasis versus infiltrate concerning for infectious bronchitis. CTA chest findings limited by motion artifact but no embolus noted. Patient was given empiric antibiotics, bronchodilators, nebs, and short course of oral prednisone and had improvement of her symptoms. Patient was breathing more comfortably on room air, +no hypoxia when ambulating. Patient remained afebrile for > 48 hours without leukocytosis, breathing improved, and was deemed stable for discharge home. Advised to follow up with pulmonology at outpatient for further monitoring / work up. Patient is to complete 5 more days of augmentin and azithromycin on discharge. 01/12 Patient was about to get discharged when patient became disoriented and had a near syncopal episode. Patient never hit the floor nor did she lose consciousness. Patient was monitored overnight. No further episodes. Medications: Prednisone x3 days Augmentin x5 days azithryomycin x5 days Albuterol inhaler as needed Zackaryituslucy cough medicine as needed Follow up: PCP 3-5 days Pulmonology in next few weeks. Time spent managing pt's care (in minutes): 45
[2023-01-13] MEDS: carvediloL 12.5 MG TAB PO SCH (09:31)
[2023-01-13] MEDS: CEFTRIAXONE 1,000 MG in NA CHLORIDE 0.9% 50 ML IVPB SCH (09:31)
[2023-01-13] MEDS: oxyBUTYnin chloride 5 MG TAB PO SCH (09:31)
[2023-01-13] MEDS: AZITHROMYCIN IV 500 MG in NA CHLORIDE 0.9% 250 ML IVPB SCH (09:31)
[2023-01-13] MEDS: BUSPIRONE HCL 15 MG TABLET PO SCH (09:31)
[2023-01-13] MEDS: ASPIRIN 81 MG CHEWABLE TABLET PO SCH (09:31)
[2023-01-13] MEDS: VENLAFAXINE HCL XR 75 MG CAP PO SCH (09:31)
[2023-01-13] MEDS: LOSARTAN POTASSIUM 50 MG TABLET PO SCH (09:34)
[2023-01-13 10:22] VITALS: O2SAT 93
[2023-01-13] MEDS: ACETAMINOPHEN 500 MG TAB PO PRN (10:30)
[2023-01-13 13:59] VITALS: BP 123/79; TEMP 97.7
[2023-01-13] MEDS ORDERED: ALBUTEROL 2.5 MG/3 ML NEB SOL NEB SCH (14:00)
== END 2023-01-13 12:40 | disposition home or self-care (01) | DRG 871 ==
LOC: ER 21:11 → 2ND 01-11 02:20
PROVIDERS: ADMIT Family Medicine; ATTEND Hospitalist
DX: A41.9 Sepsis, unspecified organism (principal); J18.9 Pneumonia, unspecified organism; J96.01 Acute respiratory failure with hypoxia; E87.20 Acidosis, unspecified; Z68.41 Body mass index [BMI] 40.0-44.9, adult; J44.1 Chronic obstructive pulmonary disease with (acute) exacerbation; J44.0 Chronic obstructive pulmonary disease with (acute) lower respiratory infection; E66.01 Morbid (severe) obesity due to excess calories; I10 Essential (primary) hypertension; J20.9 Acute bronchitis, unspecified; F41.8 Other specified anxiety disorders; E11.40 Type 2 diabetes mellitus with diabetic neuropathy, unspecified; E78.00 Pure hypercholesterolemia, unspecified; R55 Syncope and collapse; Z60.2 Problems related to living alone; Z88.5 Allergy status to narcotic agent; Z88.8 Allergy status to other drugs, medicaments and biological substances; Z90.49 Acquired absence of other specified parts of digestive tract; Z79.52 Long term (current) use of systemic steroids; Z98.51 Tubal ligation status; Z11.52 Encounter for screening for COVID-19; Z79.84 Long term (current) use of oral hypoglycemic drugs; Z79.02 Long term (current) use of antithrombotics/antiplatelets; Z79.82 Long term (current) use of aspirin; Z79.899 Other long term (current) drug therapy
CPT/HCPCS: 36415; 71045; 71275; 80048; 80053; 80076; 81001; 82947; 83605; 83735; 83880; 84484; 85025; 85610; 87070; 87081; 87635; 87804; 93005; 94640; 94760; 99285; J0696; J1650; J1815; J1940; J2930; J7030; J7050; J7613; J7644; Q9967

== ENCOUNTER 2023-01-22 23:52 | Emergency (ER) | payer SELFPAY ==
[2023-01-23 01:53] LABS: Specific Gravity > 1.030 (1.005-1.030); Urine Bacteria None Seen /HPF (<20); Urine Bilirubin NEGATIVE (Negative); Urine Blood Negative (Negative); Urine Clarity Clear (Clear); Urine Color Light-Yellow (Yellow); Urine Glucose 4+ (Over) (Negative); Urine Mucus Slight /HPF (None Seen); Urine Protein NEGATIVE (Negative); Urine Urobilinogen Normal (Normal); Urine WBC Clump Rare /HPF (None Seen); Urine pH 6.5 (5.0-7.0)
[2023-01-23] MEDS ORDERED: OSELTAMIVIR 75 MG CAP PO ONE (01:58)
--- NOTE | 2023-01-23 02:04 | ER ---
Nurse's Notes [facility] Name: Yeimy Donohue Age: 62 yrs Sex: Female : 1960 Arrival Date: 01/22/2023 Time: 23:52 Bed 17 Private MD: Diagnosis: Influenza due to other identified influenza virus with gastrointestinal manifestations Presentation: 01/22 23:54 Chief complaint: EMS states: pt has N/V/D x 1 day. Coronavirus screen: Client denies nw1 travel out of the [place] in the last 14 days. At this time, the client does not indicate any symptoms associated with coronavirus-19. Ebola Screen: Patient negative for fever greater than or equal to 101.5 degrees Fahrenheit, and additional compatible Ebola Virus Disease symptoms Patient denies exposure to infectious person. Patient denies travel to an Ebola-affected area in the 21 days before illness onset. No symptoms or risks identified at this time. Initial Sepsis Screen: Does the patient meet any 2 criteria? HR > 90 bpm. Does the patient have a suspected source of infection? No. Patient's initial sepsis screen is negative. Risk Assessment: Do you want to hurt yourself or someone else? Patient reports no desire to harm self or others. Onset of symptoms was January 21, 2023. 23:54 Method Of Arrival: EMS: [facility] nw1 23:54 Acuity: [place] 3 nw1 Triage Assessment: 23:58 General: Appears uncomfortable, obese, unkempt, Behavior is agitated, fussy, restless. nw1 Pain: Complains of pain in abdomen. Cardiovascular: Capillary refill < 3 seconds. Respiratory: Airway is patent Trachea midline Respiratory effort is even, unlabored, Respiratory pattern is regular, symmetrical. GI: Reports diarrhea, nausea, vomiting. :. Derm: No deficits noted. Musculoskeletal: Reports generalized weakness. Historical: - Allergies: 23:58 Codeine; nw1 23:58 TOPROL; nw1 23:58 Tramadol HCl; nw1 - PMHx: 23:58 Anxiety; Cellulitis; Depression; Diabetes - NIDDM; High Cholesterol; Hypertension; nw1 - PSHx: 23:58 Cholecystectomy; tubal ligation; nw1 - Immunization history:: unknown. - Social history:: Smoking status: Patient denies any tobacco usage or history of. Screenin/17 00:12 [facility] ED Fall Risk Assessment (Adult) History of falling in the last 3 months, nw1 including since admission No falls in past 3 months (0 pts) Confusion or Disorientation Yes (5 pts) Intoxicated or Sedated No (0 pts) Impaired Gait No (0 pts) Mobility Assist Device Used No (0 pt) Altered Elimination No (0 pt) Score/Fall Risk Level 3 or more points = High Risk Oriented to surroundings, Maintained a safe environment, Educated pt \T\ family on fall prevention, incl call for assistance when getting out of bed, Hourly rounding (assess needs \T\ fall precautionary measures) done. Abuse screen: Denies threats or abuse. Denies injuries from another. Nutritional screening: No deficits noted. Tuberculosis screening: No symptoms or risk factors identified. Assessment: 00:08 General: Appears uncomfortable, obese, Behavior is agitated, anxious, restless. nw1 Cardiovascular: Rhythm is sinus tachycardia. GI: Reports diarrhea, nausea, vomiting. Musculoskeletal: Reports generalized weakness. Vital Signs: 01/22 23:54 BP 163 / 74; Pulse 108; Resp 15; Temp 98.2(O); Pulse Ox 94% ; Weight 89.36 kg; Height 4 nw1 ft. 11 in. ; Pain 5/10; 01/23 00:50 BP 158 / 76; Pulse 99; Resp 15; Pulse Ox 95% on R/A; nw1 01:45 BP 142 / 72; Pulse 101; Resp 16; Pulse Ox 94% on R/A; nw1 02:20 BP 139 / 74; Pulse 89; Resp 15; Pulse Ox 95% on R/A; nw1 01/22 23:54 Body Mass Index 39.79 (89.36 kg, 149.86 cm) nw1 01/22 23:54 Pain Scale: Adult nw1 ED Course: 01/22 23:53 Patient arrived in ED. rv1 23:54 Claudette Dahl RN is Primary Nurse. nw1 23:54 Carmita Mae FNP-C is PHCP. snw 23:54 Thomas Yañez MD is Attending Physician. snw 23:58 Triage completed. nw1 23:58 Arm band placed on right wrist. nw1 01/23 00:12 Patient has correct armband on for positive identification. Placed in gown. Bed in low nw1 position. Call light in reach. Side rails up X2. Provided Education on: POC . Client placed on continuous cardiac and pulse oximetry monitoring. NIBP monitoring applied. environmental monitoring specialist on. Pulse ox on. NIBP on. Door closed. Noise minimized. Visitors limited. Warm blanket given. Verbal reassurance given. Turned. 00:12 No provider procedures requiring assistance completed. Inserted saline lock: 22 gauge nw1 in right hand, using aseptic technique. 00:58 Flu Sent. nw1 01:16 CT Stone Protocol In Process Unspecified. EDMS 02:59 IV discontinued, intact, bleeding controlled, No redness/swelling at site. Pressure nw1 dressing applied. Administered Medications: 01:49 Drug: Oseltamivir PO 75 mg PO once Route: PO; nw1 Medication: 00:12 VIS not applicable for this client. nw1 Outcome: 02:04 Discharge ordered by . snw 02:59 Discharged to home via wheelchair, with friend, nw1 02:59 Condition: stable 02:59 Discharge instructions given to patient, Instructed on discharge instructions, follow up and referral plans. medication usage, Demonstrated understanding of instructions, follow-up care, medications, Prescriptions given X 2, 03:00 Patient left the ED. nw1 Signatures: Dispatcher [employer] Carmita Matamoros, RUDY BUSINESS PROCESS LEAD-Pearl Campbell rv1 Claudette Dahl, RN RN nw1 Corrections: (The following items were deleted from the chart) 00:17 00:12 Inserted saline lock: 22 gauge in right hand, using aseptic technique. Blood nw1 collected. nw1
--- NOTE | 2023-01-23 02:04 | EDPHYS ---
Physician Documentation [facility] Name: Yeimy Donohue Age: 62 yrs Sex: Female : 1960 Arrival Date: 01/22/2023 Time: 23:52 Bed 17 Private MD: ED Physician Thomas Yañez HPI: 01/23 01:29 This 62 yrs old Female presents to ER via EMS with complaints of N/V/D. snw 01:29 The patient presents with abdominal pain right lower quadrant, in the left lower snw quadrant. Onset: The symptoms/episode began/occurred acutely. Associated signs and symptoms: Pertinent positives: nausea, vomiting, and diarrhea. Severity of pain: At its worst the pain was mild moderate. It is unknown whether or not the patient has had similar symptoms in the past. recent hospitalization for pneumonia. Historical: - Allergies: 01/22 23:58 Codeine; nw1 23:58 TOPROL; nw1 23:58 Tramadol HCl; nw1 - PMHx: 23:58 Anxiety; Cellulitis; Depression; Diabetes - NIDDM; High Cholesterol; Hypertension; nw1 - PSHx: 23:58 Cholecystectomy; tubal ligation; nw1 - Immunization history:: unknown. - Social history:: Smoking status: Patient denies any tobacco usage or history of. ROS: 23:55 Constitutional: Negative for fever, chills, and weight loss, Eyes: Negative for injury, snw pain, redness, and discharge, ENT: Negative for injury, pain, and discharge, Neck: Negative for injury, pain, and swelling, Cardiovascular: Negative for chest pain, palpitations, and edema, Respiratory: Negative for shortness of breath, cough, wheezing, and pleuritic chest pain, Back: Negative for injury and pain, : Negative for injury, bleeding, discharge, and swelling, MS/Extremity: Negative for injury and deformity, Skin: Negative for injury, rash, and discoloration, Neuro: Negative for headache, weakness, numbness, tingling, and seizure, Psych: Negative for depression, anxiety, suicide ideation, homicidal ideation, and hallucinations, 23:55 Abdomen/GI: Positive for abdominal pain, nausea, vomiting, and diarrhea, Exam: 23:54 Constitutional: This is a well developed, well nourished patient who is awake, alert, snw and in no acute distress. Head/Face: Normocephalic, atraumatic. Eyes: Pupils equal round and reactive to light, extra-ocular motions intact. Lids and lashes normal. Conjunctiva and sclera are non-icteric and not injected. Cornea within normal limits. Periorbital areas with no swelling, redness, or edema. ENT: Nares patent. No nasal discharge, no septal abnormalities noted. Tympanic membranes are normal and external auditory canals are clear. Oropharynx with no redness, swelling, or masses, exudates, or evidence of obstruction, uvula midline. Mucous membranes moist. Neck: Trachea midline, no thyromegaly or masses palpated, and no cervical lymphadenopathy. Supple, full range of motion without nuchal rigidity, or vertebral point tenderness. No Meningismus. Chest/axilla: Normal chest wall appearance and motion. Nontender with no deformity. No lesions are appreciated. Cardiovascular: Regular rate and rhythm with a normal S1 and S2. No gallops, murmurs, or rubs. Normal PMI, no JVD. No pulse deficits. Respiratory: Lungs have equal breath sounds bilaterally, clear to auscultation and percussion. No rales, rhonchi or wheezes noted. No increased work of breathing, no retractions or nasal flaring. 23:54 Back: No spinal tenderness. No costovertebral tenderness. Full range of motion. Skin: Warm, dry with normal turgor. Normal color with no rashes, no lesions, and no evidence of cellulitis. MS/ Extremity: Pulses equal, no cyanosis. Neurovascular intact. Full, normal range of motion. Neuro: Awake and alert, GCS 15, oriented to person, place, time, and situation. Cranial nerves II-XII grossly intact. Motor strength 5/5 in all extremities. Sensory grossly intact. Cerebellar exam normal. Normal gait. Psych: Awake, alert, with orientation to person, place and time. Behavior, mood, and affect are agitated 23:54 Abdomen/GI: Inspection: obese Bowel sounds: normal, Palpation: moderate abdominal tenderness, in the right lower quadrant and left lower quadrant, Vital Signs: 23:54 BP 163 / 74; Pulse 108; Resp 15; Temp 98.2(O); Pulse Ox 94% ; Weight 89.36 kg; Height 4 nw1 ft. 11 in. ; Pain 5/10; 01/23 00:50 BP 158 / 76; Pulse 99; Resp 15; Pulse Ox 95% on R/A; nw 01:45 BP 142 / 72; Pulse 101; Resp 16; Pulse Ox 94% on R/A; nw 02:20 BP 139 / 74; Pulse 89; Resp 15; Pulse Ox 95% on R/A; nw1 01/22 23:54 Body Mass Index 39.79 (89.36 kg, 149.86 cm) nw1 01/22 23:54 Pain Scale: Adult nw MDM: 01/22 23:55 Patient medically screened. snw 01/23 01:29 Differential diagnosis: non-specific abd pain, urinary tract infection, influenza. snw 02:04 Data reviewed: vital signs, nurses notes. I considered the following discharge snw prescriptions or medication management in the emergency department Medications were administered in the Emergency Department. See MAR. Historians other than the Patient: [place] [facility] [place] Records Reviewed: Inpatient record: recent hospitalization for pneumonia. Counseling: I had a detailed discussion with the patient and/or guardian regarding the historical points, exam findings, and any diagnostic results supporting the discharge/admit diagnosis, the presence of at least one elevated blood pressure reading (>120/80) during this emergency department visit, lab results, radiology results, the need for outpatient follow up, for definitive care, to return to the emergency department if symptoms worsen or persist or if there are any questions or concerns that arise at home. Special discussion: Based on the history and exam findings, there is no indication for further emergent testing or inpatient evaluation. I discussed with the patient/guardian the need to see the primary care provider for further evaluation of the symptoms. 01/23 00:44 Order name: Urine W/Microscopic (UAM); Complete Time: 01:55 snw 01/23 02:07 Interpretation: Abnormal: glycosuria. snw 01/23 00:44 Order name: Flu; Complete Time: 01:28 snw 01/23 02:07 Interpretation: Abnormal: Flu B +. snw 01/23 01:59 Order name: Glucose, Ancillary Testing; Complete Time: 02:04 EDMS 01/23 00:44 Order name: CT Stone Protocol snw 01/23 02:09 Interpretation: per Rad partners: No acute process identified within the abdomen and snw pelvis. 01/23 01:29 Order name: FSBS; Complete Time: 01:49 snw 01/23 02:08 Interpretation: Abnormal: 200mg/d. snw Administered Medications: 01:49 Drug: Oseltamivir PO 75 mg PO once Route: PO; nw1 Disposition Summary: 01/23/23 02:04 Discharge Ordered Notes: Location: Home snw Condition: Stable snw Diagnosis - Influenza due to other identified influenza virus with gastrointestinal snw manifestations Followup: snw - With: Emergency Department - When: As needed - Reason: Worsening of condition Followup: snw - With: Private Physician - When: 2 - 3 days - Reason: Recheck today's complaints, Continuance of care, Re-evaluation by your physician Discharge Instructions: - Discharge Summary Sheet snw - Influenza, Adult snw - Rehydration, Adult snw Forms: - Medication Reconciliation Form snw - Thank You Letter snw - Antibiotic Education snw - Prescription Opioid Use snw - Patient Portal Instructions snw - Leadership Thank You Letter snw Prescriptions: - Zofran 4 mg Oral Tablet - take 1 tablet ORAL route every 12 hours As needed; 6 tablet; Refills: 0, snw Product Selection Permitted - Tamiflu 75 mg Oral capsule - take 1 tablet ORAL route every 12 hours for 5 days; 10 tablet; Refills: 0, snw Product Selection Permitted Addendum: 01/26/2023 20:07 Co-signature as Attending Physician, Thomas Yañez MD I agree with the assessment s p4 and plan of care. I reviewed the patient's care provided by the Advanced Practice Provider and agree with the diagnosis and treatment plan. Signatures: Dispatcher [employer] EDCarmita Cameron, LEGAL SUPPORT MANAGER-C LEGAL SUPPORT MANAGER-CsnThomas Bahena MD MD sp4 Claudette Dahl RN RN nw1 Corrections: (The following items were deleted from the chart) 01/23 02:08 02:08 Abnormal: 200. snw snw
[2023-01-23 03:05] VITALS: TEMP 98.2
[2023-01-23 03:09] VITALS: BP 139/74; O2SAT 95
--- NOTE | 2023-01-23 14:04 | RAD REPORT ---
EXAM DESCRIPTION: CT - Stone Protocol - 01/23/2023 6:48 am CLINICAL HISTORY: ABD PAIN TECHNIQUE: Axial computed tomography images of the abdomen and pelvis without intravenous contrast. Sagittal and coronal reformatted images were created and reviewed. This CT exam was performed usi ng one or more of the following dose reduction techniques: automated exposure control, adjustment o f the mA and/or kV according to patient size, and/or use of iterative reconstruction technique. COMPARISON: CT Abdomen Pelvis dated 06/29/2022 FINDINGS: Lung bases: Unremarkable. No mass. No consolidation. Heart: Coronary artery calcification. ABDOMEN: Liver: Unremarkable. Gallbladder and bile ducts: Prior cholecystectomy. No ductal dilation. Pancreas: Unremarkable. No ductal dilation. Spleen: Unremarkable. No splenomegaly. Adrenals: 2 cm homogeneous left adrenal nodule measuring -10 Hounsfield units most compatible with a benign adenoma without significant interval change. Kidneys and ureters: Unremarkable. No obstructing stones. No hydronephrosis. Stomach and bowel: Duodenal diverticula. Colonic diverticula without adjacent inflammatory change . No obstruction. No appreciable mucosal thickening. PELVIS: Appendix: Normal caliber appendix. No findings to suggest acute appendicitis. Bladder: Punctate focus of nondependent gas within the urinary bladder which can be seen in the set ting of recent instrumentation. No stones. Reproductive: Unremarkable as visualized. ABDOMEN and PELVIS: Intraperitoneal space: Unremarkable. No free air. No significant fluid collection. Bones/joints: Multilevel spondylosis. No acute fracture. No dislocation. Soft tissues: Rectus muscle diastases. Prior ventral hernia repair. Vasculature: Mild to moderate atherosclerotic disease. Lymph nodes: Unremarkable. No enlarged lymph nodes. IMPRESSION: 1. No acute process identified within the abdomen and pelvis. 2. Other findings as above. Electronically signed by: Maryjane La MD 01/23/2023 01:52 AM MOLDER OFFBEARER Due to temporary technical issues with the PACS/Fluency reporting system, reports are being signed by the in house radiologists without review as a courtesy to insure prompt reporting. The interpreting radiologist is fully responsible for the content of the report.
== END 2023-01-23 03:00 | disposition home or self-care (01) ==
LOC: ER 23:52
DX: J10.2 Influenza due to other identified influenza virus with gastrointestinal manifestations (principal)
CPT/HCPCS: 74176; 76377; 81001; 82947; 87804; 99285

== ENCOUNTER → 2023-03-18 | Emergency (ER) | payer OTHER, SELFPAY ==
[~2023-03-18] MED LIST: CEFTRIAXONE 1000 MG/VIAL ONE; FAMOTIDINE 20 MG/2 ML VIAL IV ONE; MAGNESIUM SULFATE 1 gm IVPB 1 GM/100 ML BAG IV ONE; NA CHLORIDE 0.9% 500 ML ONE; ONDANSETRON 4 MG/2 ML VIAL ONE
[2023-03-18 03:04] LABS: Protime INR 1.04
[2023-03-18 03:16] LABS: Absolute Lymphocytes (CBC) 1.3 K/uL (0.7-4.9); Hematocrit 43.8 % (36.0-45.0); Lymphocytes % 15.9 % (15.3-44.8); MCV 90.2 fL (80-100); MPV 8.5 fL (7.6-11.3); Platelets 245 thou/uL (152-406); RBC Red Blood Cell Count 4.86 M/uL (3.86-4.86)
[2023-03-18 03:26] LABS: Albumin 3.3 g/dL (3.4-5.0); Bilirubin Direct 0.2 mg/dL (0-0.2); Bilirubin Indirect, Calculated 0.3 mg/dL (0.2-0.8); Bilirubin Total 0.5 mg/dL (0.2-1.0); Magnesium 1.4 mg/dL (1.6-2.4); Potassium 3.7 mEq/L (3.5-5.1); Protein, Total 7.4 g/dL (6.4-8.2); Troponin High Sensitivity 7.9 pg/mL (<58.9)
[2023-03-18 04:47] LABS: Specific Gravity 1.021 (1.005-1.030); Urine Bacteria >50 /HPF (<20); Urine Bilirubin NEGATIVE (Negative); Urine Blood Negative (Negative); Urine Clarity Extremely Turbid (Clear); Urine Color Yellow (Yellow); Urine Glucose NEGATIVE (Negative); Urine Mucus 1+ /HPF (None Seen); Urine Protein 1+ (Negative); Urine RBC <5 /HPF (None Seen); Urine Urobilinogen Normal (Normal); Urine pH 6.5 (5.0-7.0)
[2023-03-18 04:48] LABS: SARS-COV-2 RT PCR POSITIVE (NEGATIVE)
--- NOTE | 2023-03-18 05:24 | EDPHYS ---
Physician Documentation [facility] Name: Yeimy Donohue Age: 62 yrs Sex: Female : 1960 Arrival Date: 03/18/2023 Time: 02:19 Bed 7 Private MD: ED Physician Monroe Rodriguez HPI: 03/18 02:25 This 62 yrs old Female presents to ER via EMS with complaints of Vomiting, Abdominal cp Pain. 02:25 The patient presents to the emergency department with nausea, with "dry heaves", cp vomiting, that is continuous, abdominal pain. 02:25 Onset: The symptoms/episode began/occurred yesterday. Associated signs and symptoms: cp Pertinent positives: anorexia, Pertinent negatives: constipation, diarrhea, fever, GI bleeding. Severity of symptoms: in the emergency department the symptoms are unchanged despite EMS interventions. Historical: - Allergies: 02:25 Codeine; rv 02:25 TOPROL; rv 02:25 Tramadol HCl; rv - PMHx: 02:25 Anxiety; Cellulitis; Depression; Diabetes - NIDDM; High Cholesterol; Hypertension; rv - PSHx: 02:25 tubal ligation; Cholecystectomy; rv - Immunization history:: Adult Immunizations up to date. - Social history:: Smoking status: unknown. ROS: 02:30 Constitutional: Positive for body aches, poor PO intake, Negative for fever, cp 02:30 Eyes: Negative for injury, pain, redness, and discharge, cp 02:30 ENT: Negative for drainage from ear(s), ear pain, difficulty swallowing, difficulty handling secretions, 02:30 Cardiovascular: Negative for chest pain, 02:30 Respiratory: Positive for cough, Negative for wheezing, 02:30 Abdomen/GI: Positive for abdominal pain, nausea and vomiting, Negative for diarrhea, constipation, hematemesis, 02:30 Neuro: Positive for weakness, Negative for altered mental status, 02:30 All other systems are negative, Exam: 02:33 Constitutional: The patient appears in no acute distress, alert, awake, cp non-diaphoretic, non-toxic, well developed, well nourished, uncomfortable, 02:33 Head/Face: Normocephalic, atraumatic. cp 02:33 Eyes: Periorbital structures: appear normal, Conjunctiva: normal, no exudate, no injection, Sclera: no appreciated abnormality, Lids and lashes: appear normal, bilaterally, 02:33 ENT: External ear(s): are unremarkable, Nose: is normal, Mouth: Lips: moist, Oral mucosa: moist, Posterior pharynx: Airway: no evidence of obstruction, patent, 02:33 Neck: ROM/movement: is normal, is supple, no meningismus, no nuchal rigidity, 02:33 Chest/axilla: Inspection: normal, 02:33 Cardiovascular: Rate: normal, Rhythm: regular, Edema: is not appreciated, JVD: is not appreciated, 02:33 Respiratory: the patient does not display signs of respiratory distress, Respirations: normal, no use of accessory muscles, no retractions, labored breathing, is not present, Breath sounds: are clear throughout, no decreased breath sounds, no stridor, no wheezing, 02:33 Abdomen/GI: Inspection: obese Bowel sounds: active, all quadrants, Palpation: soft, in all quadrants, mild abdominal tenderness, in the abdomen diffusely, rebound tenderness, is not appreciated, involuntary guarding, is not appreciated, :33 Back: CVA tenderness, is absent, :33 Neuro: Orientation: to person, place \\T\\ time. Mentation: is normal, Motor: moves all fours, no focal deficits, 03:07 ECG was reviewed by the Attending Physician. Vital Signs: 02:23 BP 122 / 105; Pulse 92; Resp 20; Temp 98; Pulse Ox 96% ; Weight 86.18 kg; Height 4 ft. rv 10 in. ; 03:00 BP 129 / 54; Pulse 91; Resp 16; Pulse Ox 93% ; jj7 04:00 BP 109 / 71; Pulse 94; Resp 17; Pulse Ox 94% ; jj7 05:00 BP 118 / 59; Pulse 81; Resp 16; Pulse Ox 91% ; jj7 06:10 BP 121 / 63; Pulse 86; Resp 17; Pulse Ox 93% ; jj7 02:23 Body Mass Index 39.71 (86.18 kg, 147.32 cm) rv MDM: 02:22 Patient medically screened. [facility] 03:00 Differential diagnosis: gastritis, pancreatitis, appendicitis, diverticulitis, viral cp gastroenteritis, gastroenteritis. 05:21 Data reviewed: vital signs, nurses notes, lab test result(s), EKG, radiologic studies, cp CT scan, plain films, and as a result, I will discharge patient. I considered the following discharge prescriptions or medication management in the emergency department Medications were administered in the Emergency Department. See MAR. Independent interpretation of the following test(s) in the Emergency Department EKG: See my EKG interpretation above. Care significantly affected by the following chronic conditions: Diabetes, Hypertension. Counseling: I had a detailed discussion with the patient and/or guardian regarding the historical points, exam findings, and any diagnostic results supporting the discharge/admit diagnosis, lab results, radiology results, to return to the emergency department if symptoms worsen or persist or if there are any questions or concerns that arise at home. Response to treatment: the patient's symptoms have markedly improved after treatment, and as a result, I will discharge patient. 03/18 02:25 Order name: Basic Metabolic Panel; Complete Time: 04:00 cp 03/18 04:00 Interpretation: Normal except: NA 135; GLUC 214. 03/18 02:25 Order name: CBC with Diff; Complete Time: 04:00 cp 03/18 04:01 Interpretation: Normal except: HGB 15.6; KATHARINE% 75.6. cp 03/18 02:25 Order name: LFT's; Complete Time: 04:00 cp 03/18 04:01 Interpretation: Normal except: ALK 148; ALB 3.3; GLOB 4.1; A/G 0.8. cp 03/18 02:25 Order name: Magnesium; Complete Time: 04:00 cp 03/18 04:01 Interpretation: Abnormal: MG 1.4. cp 03/18 02:25 Order name: NT PRO-BNP; Complete Time: 04:00 cp 03/18 05:07 Interpretation: Abnormal: NT PRO-BNP 320. cp 03/18 02:25 Order name: PT-INR; Complete Time: 04:00 cp 03/18 05:09 Interpretation: Reviewed. cp 03/18 02:25 Order name: Troponin HS; Complete Time: 04:00 cp 03/18 02:25 Order name: Lipase; Complete Time: 04:00 cp 03/18 02:25 Order name: Urinalysis W/Microscopic; Complete Time: 05:01 cp 03/18 05:06 Interpretation: Normal except: [facility] Extremely Turbid; UPROT 1+; UBACT >50. cp 03/18 02:43 Order name: COVID-19/FLU A+B; Complete Time: 05:01 EDMS 03/18 05:08 Interpretation: Abnormal: SARSCOV2 RT PCR POSITIVE. cp 03/18 02:25 Order name: XRAY Chest (1 view) cp 03/18 03:08 Order name: CT Abd/Pelvis - IV Contrast Only cp 03/18 02:25 Order name: EKG; Complete Time: 02:25 cp 03/18 02:25 Order name: Cardiac monitoring; Complete Time: 03:00 cp 03/18 02:25 Order name: EKG - Nurse/Tech; Complete Time: 03:00 cp 03/18 02:25 Order name: IV Saline Lock; Complete Time: 02:37 cp 03/18 02:25 Order name: Labs collected and sent; Complete Time: 02:37 cp 03/18 02:25 Order name: O2 Per Protocol; Complete Time: 02:37 cp 03/18 02:25 Order name: O2 Sat Monitoring; Complete Time: 02:37 cp 03/18 05:07 Order name: PO challenge; Complete Time: 06:04 cp EC:07 Rate is 89 beats/min. Rhythm is regular. CT interval is normal. QRS interval is normal. cp QT interval is normal. T waves are Inverted in lead aVR. Interpreted by me. Reviewed by me. Administered Medications: 02:37 Drug: Ondansetron IVP 4 mg IVP once; over 2 minutes Route: IVP; Site: left hand; [facility] 03:01 Follow up: Response: Marked relief of symptoms j7 02:37 Drug: Famotidine IVP 20 mg IVP once; dilute with 10 mL 0.9% NaCl; give over 2 minutes jj7 Route: IVP; Site: left hand; 03:01 Follow up: Response: Marked relief of symptoms jj7 03:34 Drug: NS 0.9% IV 500 ml IV at 500 ml/hr continuous Route: IV; Rate: 500 ml/hr; Site: [address] hand; 06:04 Follow up: IV Status: Completed infusion jj7 04:52 Drug: Magnesium Sulfate IVPB 1 grams IVPB once over 1 hrs Route: IVPB; Infused Over: 1 jw7 hrs; Site: left hand; 06:04 Follow up: IV Status: Completed infusion jj7 05:55 Drug: Rocephin IV 1 grams IV at calculated rate once; Given slow IV push per pharmacy jj7 instructions Route: IV; Rate: calculated rate; Site: left hand; 06:05 Follow up: IV Status: Completed infusion jj7 Disposition Summary: 03/18/23 05:23 Discharge Ordered Notes: Location: Home cp Problem: new cp Symptoms: have improved cp Condition: Stable cp Diagnosis - Nausea with vomiting, unspecified cp - SARS-associated coronavirus as the cause of diseases classified elsewhere cp - UTI/ Urinary tract infection, site not specified cp Followup: cp - With: Private Physician - When: 1 - 2 days - Reason: Worsening of condition Discharge Instructions: - Discharge Summary Sheet cp - Urinary Tract Infection, Adult cp - Aspirin and Your Heart cp - COVID-19 cp - How to Protect Yourself and Others - [facility] (05/03/2021) cp - 10 Things You Can Do to Manage Your COVID-19 Symptoms at Home - [facility] (09/21/2020) cp - COVID-19: Quarantine and Isolation - [facility] (06/05/2021) cp - COVID-19: What to Do If You Are Sick - [facility] (05/28/2021) cp Forms: - Medication Reconciliation Form cp - Thank You Letter cp - Antibiotic Education cp - Prescription Opioid Use cp - Patient Portal Instructions cp - Leadership Thank You Letter cp Prescriptions: - Paxlovid 300 mg (150 mg x 2)-100 mg Oral Tablet, Dose Pack - take 1 dose pack ORAL route as directed on dose pack take TWO 150 mg tablets of cp nirmatrelvir with ONE 100 mg tablet of ritonavir twice daily for 5 days; 30 tablet; Refills: 0, Product Selection Permitted - Zofran 4 mg Oral Tablet - take 1 tablet ORAL route every 12 hours As needed; 20 tablet; Refills: 0, cp Product Selection Permitted - cefpodoxime 200 mg Oral tablet - take 1 tablet ORAL route every 12 hours for 7 days with food; 14 tablet; cp Refills: 0, Product Selection Permitted Signatures: Dispatcher [employer] Monroe Haas MD MD cha Page, Corey, PA PA cp Vicente, Ronaldo, RN RN rv Waits, Jodi, RN RN jw7 Nelly Loredo RN RN jj7 Corrections: (The following items were deleted from the chart) 02:42 02:25 Influenza Screen (A \\T\\ B)+BA.LAB.BRMaddie ordered. EDMS EDMS 02:25 SARS-COV-2 RT PCR+MOL.LAB.GIULIA ordered. EDMS EDMS
--- NOTE | 2023-03-18 05:24 | ER ---
Nurse's Notes [facility] Name: Yeimy Donohue Age: 62 yrs Sex: Female : 1960 Arrival Date: 03/18/2023 Time: 02:19 Bed 7 Private MD: Diagnosis: Nausea with vomiting, unspecified;SARS-associated coronavirus as the cause of diseases classified elsewhere;UTI/ Urinary tract infection, site not specified Presentation: 03/18 02:23 Chief complaint: EMS states: BODY ACHES, WEAKNESS, COUGH AND CONGESTION SINCE rv YESTERDAY. VOMITED 2X MEN'S LOCKER ROOM ATTENDANT.. ADMINISTERED ZOFRAN. ABDOMINAL PAIN SINCE YESTERDAY. Coronavirus screen: At this time, the client does not indicate any symptoms associated with coronavirus-19. Ebola Screen: No symptoms or risks identified at this time. Initial Sepsis Screen: Does the patient meet any 2 criteria? No. Patient's initial sepsis screen is negative. Does the patient have a suspected source of infection? No. Patient's initial sepsis screen is negative. Risk Assessment: Do you want to hurt yourself or someone else? Patient reports no desire to harm self or others. Onset of symptoms was March 18, 2023. 02:23 Method Of Arrival: EMS: [facility] rv 02:23 Acuity: [place] 3 rv Triage Assessment: 02:25 General: Appears uncomfortable, Behavior is calm, cooperative. Pain: Complains of pain rv in abdomen. Neuro: Level of Consciousness is awake, alert, obeys commands, Oriented to person, place, time, situation. Cardiovascular: Capillary refill < 3 seconds Patient's skin is warm and dry. Respiratory: Airway is patent Respiratory effort is even, unlabored. GI: Abdomen is round non-distended, Reports lower abdominal pain, upper abdominal pain, nausea, vomiting. Derm: Skin is intact. Historical: - Allergies: 02:25 Codeine; rv 02:25 TOPROL; rv 02:25 Tramadol HCl; rv - PMHx: 02:25 Anxiety; Cellulitis; Depression; Diabetes - NIDDM; High Cholesterol; Hypertension; rv - PSHx: 02:25 tubal ligation; Cholecystectomy; rv - Immunization history:: Adult Immunizations up to date. - Social history:: Smoking status: unknown. Screenin:26 [facility] ED Fall Risk Assessment (Adult) History of falling in the last 3 months, rv including since admission No falls in past 3 months (0 pts) Score/Fall Risk Level 0 - 2 = Low Risk Oriented to surroundings, Maintained a safe environment, Educated pt \T\ family on fall prevention, incl call for assistance when getting out of bed, Assessed \T\ reinforced patient's understanding of fall precautions. Abuse screen: Denies threats or abuse. Denies injuries from another. Nutritional screening: No deficits noted. Tuberculosis screening: No symptoms or risk factors identified. Assessment: 02:30 Reassessment: SEE TRIAGE ASSESSMENT. jj7 Vital Signs: 02:23 BP 122 / 105; Pulse 92; Resp 20; Temp 98; Pulse Ox 96% ; Weight 86.18 kg; Height 4 ft. rv 10 in. ; 03:00 BP 129 / 54; Pulse 91; Resp 16; Pulse Ox 93% ; jj7 04:00 BP 109 / 71; Pulse 94; Resp 17; Pulse Ox 94% ; jj7 05:00 BP 118 / 59; Pulse 81; Resp 16; Pulse Ox 91% ; jj7 06:10 BP 121 / 63; Pulse 86; Resp 17; Pulse Ox 93% ; jj7 02:23 Body Mass Index 39.71 (86.18 kg, 147.32 cm) rv ED Course: 02:21 Patient arrived in ED. rv1 02:22 Monroe Gomez PA is PHCP. cp 02:22 Monroe Rodriguez MD is Attending Physician. cp 02:25 Triage completed. rv 02:25 Arm band placed on right wrist. rv 02:26 Patient has correct armband on for positive identification. Client placed on continuous rv cardiac and pulse oximetry monitoring. NIBP monitoring applied. 02:26 Maintain EMS IV. Dressing intact. Good blood return noted. Site clean \T\ dry. Gauge \T\ rv site: 20 LEFT HAND. 02:36 XRAY Chest (1 view) In Process Unspecified. EDMS 02:38 Basic Metabolic Panel Sent. jj7 02:38 CBC with Diff Sent. jj7 02:38 LFT's Sent. jj7 02:38 Magnesium Sent. jj7 02:38 NT PRO-BNP Sent. jj7 02:38 PT-INR Sent. jj7 02:38 Troponin HS Sent. jj7 03:34 Urinalysis W/Microscopic Sent. jj7 04:42 CT Abd/Pelvis - IV Contrast Only In Process Unspecified. EDMS 05:00 Inserted saline lock: 20 gauge in left antecubital area, using aseptic technique. oe 06:10 No provider procedures requiring assistance completed. IV discontinued, intact, jj7 bleeding controlled, No redness/swelling at site. Pressure dressing applied. Administered Medications: 02:37 Drug: Ondansetron IVP 4 mg IVP once; over 2 minutes Route: IVP; Site: left hand; jj7 03:01 Follow up: Response: Marked relief of symptoms jj7 02:37 Drug: Famotidine IVP 20 mg IVP once; dilute with 10 mL 0.9% NaCl; give over 2 minutes jj7 Route: IVP; Site: left hand; 03:01 Follow up: Response: Marked relief of symptoms jj7 03:34 Drug: NS 0.9% IV 500 ml IV at 500 ml/hr continuous Route: IV; Rate: 500 ml/hr; Site: [facility] left hand; 06:04 Follow up: IV Status: Completed infusion jj7 04:52 Drug: Magnesium Sulfate IVPB 1 grams IVPB once over 1 hrs Route: IVPB; Infused Over: 1 jw7 hrs; Site: left hand; 06:04 Follow up: IV Status: Completed infusion jj7 05:55 Drug: Rocephin IV 1 grams IV at calculated rate once; Given slow IV push per pharmacy jj7 instructions Route: IV; Rate: calculated rate; Site: left hand; 06:05 Follow up: IV Status: Completed infusion jj7 Medication: 02:26 VIS not applicable for this client. rv Outcome: 05:23 Discharge ordered by MD. crandall 06:10 Discharged to home ambulatory, jj7 06:10 Condition: improved 06:10 Discharge instructions given to patient, Instructed on discharge instructions, medication usage, Demonstrated understanding of instructions, medications, Prescriptions given X 3, 06:54 Patient left the ED. jj7 Signatures: Dispatcher [employer] EDMS Monroe Gomez PA PA cp Espinosa, Orlando oe Vicente, Ronaldo RN RN rv Ana María Coppola RN Nelly Farnsworth RN RN jjPearl Lei rv1 Corrections: (The following items were deleted from the chart) 02:42 02:38 SARS-COV-2 RT PCR+MOL.VERONICA drawn and sent. jj7 EDMS 02:42 02:38 Influenza Screen (A \T\ B)+BA.VERONICA drawn and sent. jj7 EDMS
[2023-03-18 07:36] VITALS: TEMP 98
[2023-03-18 07:46] VITALS: BP 121/63; O2SAT 93
--- NOTE | 2023-03-18 11:59 | RAD REPORT ---
EXAM DESCRIPTION: CT - Abdomen Pelvis W Contrast - 03/18/2023 7:21 am CLINICAL HISTORY: ABD PAIN COMPARISON: 01/23/2023. TECHNIQUE: CT ABDOMEN PELVIS WITH IV CONTRAST on 03/18/2023 3:09 AM ENGINE REPAIR SUPERVISOR This exam was performed according to our departmental dose-optimization program, which includes autom ated exposure control, adjustment of the mA and/or kV according to patient size and/or use of iterati ve reconstruction technique. FINDINGS: Lower lungs are clear. Abdomen: The liver is normal in appearance. There is no biliary dilatation. Cholecystectomy was perfo rmed. There are multiple proximal duodenal diverticula. Radiation gland is normal. The pancreas and s pleen are normal in appearance. There is an indeterminate left adrenal nodule measuring 2.1 cm. Kidne ys are mildly atrophic. Abdominal aorta is moderately calcified without aneurysm. There is no free air. There is no retroperi toneal adenopathy. There is a small fat-containing umbilical hernia. Pelvis: There is moderate diverticulosis of the left colon. There is mild proximal colonic involvemen t. Urinary bladder is unremarkable. There is no free fluid. Uterus is normal in size. Appendix is nor mal. Skeleton: There are no acute osseous findings. No suspicious bony lesions. IMPRESSION: No acute inflammatory process. Left adrenal adenoma. Electronically signed by: Aguie Casillas MD 03/18/2023 04:50 AM ENGINE REPAIR SUPERVISOR Due to temporary technical issues with the PACS/Fluency reporting system, reports are being signed by the in house radiologist without review as a courtesy to ensure prompt reporting. The interpreting r adiologist is fully responsible for the content of the report.
--- NOTE | 2023-03-18 12:00 | RAD REPORT ---
EXAM DESCRIPTION: RAD - Chest Single View - 03/18/2023 2:35 am CLINICAL HISTORY: Vomiting TECHNIQUE: Frontal view of the chest. COMPARISON: XR Chest dated 01/10/2023 FINDINGS: Lungs: Unremarkable. No consolidation. Pleural space: Unremarkable. No pneumothorax. Heart: Unremarkable. No cardiomegaly. Mediastinum: Unremarkable. Normal mediastinal contour. Bones/joints: Multilevel spondylosis. No acute fracture. IMPRESSION: No acute disease. Electronically signed by: Maryjane La MD 03/18/2023 02:54 AM ACCOUNTING ANALYST Due to temporary technical issues with the PACS/Fluency reporting system, reports are being signed by the in house radiologist without review as a courtesy to ensure prompt reporting. The interpreting r adiologist is fully responsible for the content of the report.
--- NOTE | 2023-03-18 17:34 | EKG ---
Test Date: 2023-03-18 Test Time: 03:00:29 Instrumentation Manager: [employer] MEASUREMENT RESULTS: Intervals: Rate: 89 UT: 162 QRSD: 74 QT: 374 QTc: 455 [place]: P: 49 UT: 162 QRS: 82 T: 59 INTERPRETIVE STATEMENTS: Normal sinus rhythm Septal infarct, age undetermined Abnormal ECG Compared to ECG 01/10/2023 21:47:54 Right-axis deviation no longer present Myocardial infarct finding still present Electronically Signed On 03-18-23 17:33:38 MARKER MACHINE ATTENDANT by Juan A Thurman
== END ==
LOC: ER 02:19
DX: U07.1 COVID-19 (principal); N39.0 Urinary tract infection, site not specified; Z88.5 Allergy status to narcotic agent
CPT/HCPCS: 96365; 96361; 93005; 85025; 81001; 80048; 36415; 83735; 85610; 80076; 84484; 83690; 83880; 0240U; 74177; 71045; 96375; 99284; Q9967; J3475; J2405; J7040; J0696

== ENCOUNTER → 2023-03-21 | Emergency (ER) | payer OTHER ==
[~2023-03-21] MED LIST changes: +ASPIRIN EC 81 MG TAB PO ONE; +AZITHROMYCIN 250 MG TAB ONE; -CEFTRIAXONE 1000 MG/VIAL ONE; -MAGNESIUM SULFATE 1 gm IVPB 1 GM/100 ML BAG IV ONE; +METHYLPREDNISOLONE 125 MG INJ ONE; +NA CHLORIDE 0.9% 1,000 ML ONE; -NA CHLORIDE 0.9% 500 ML ONE; -ONDANSETRON 4 MG/2 ML VIAL ONE; +predniSONE 20 MG TAB ONE
[2023-03-21 08:52] LABS: Specific Gravity 1.026 (1.005-1.030); Urine Bacteria None Seen /HPF (<20); Urine Bilirubin NEGATIVE (Negative); Urine Blood Negative (Negative); Urine Clarity Clear (Clear); Urine Color Light-Yellow (Yellow); Urine Glucose 4+ (Over) (Negative); Urine Mucus Slight /HPF (None Seen); Urine Protein TRACE (Negative); Urine RBC <5 /HPF (None Seen); Urine Urobilinogen Normal (Normal); Urine pH 5.5 (5.0-7.0)
[2023-03-21 08:59] LABS: Absolute Lymphocytes (CBC) 1.9 K/uL (0.7-4.9); Hematocrit 44.5 % (36.0-45.0); Lymphocytes % 33.7 % (15.3-44.8); MCV 89.8 fL (80-100); MPV 8.1 fL (7.6-11.3); Platelets 252 thou/uL (152-406); RBC Red Blood Cell Count 4.96 M/uL (3.86-4.86)
[2023-03-21 09:04] LABS: Protime INR 0.93
[2023-03-21 09:15] LABS: Albumin 3.2 g/dL (3.4-5.0); Bilirubin Direct 0.1 mg/dL (0-0.2); Bilirubin Indirect, Calculated 0.1 mg/dL (0.2-0.8); Bilirubin Total 0.2 mg/dL (0.2-1.0); C-Reactive Protein 26.7 mg/L (<3.00); Magnesium 1.6 mg/dL (1.6-2.4); Potassium 3.8 mEq/L (3.5-5.1); Protein, Total 7.2 g/dL (6.4-8.2); Troponin High Sensitivity 10.2 pg/mL (<58.9)
--- NOTE | 2023-03-21 09:59 | RAD REPORT ---
EXAM DESCRIPTION: CT - Head C Spine Cap Wo Con - 03/21/2023 9:04 am CLINICAL HISTORY: Trauma, head and neck injury. Chest, abdomen and pelvis pain. PAIN COMPARISON: <Comparisons> TECHNIQUE: CT head without contrast. CT cervical spine without contrast with coronal and sagittal reformatted images. CT chest, abdomen and pelvis without contrast with coronal and sagittal reformatted images of the [facility]. All CT scans are performed using dose optimization technique as appropriate and may include automated exposure control or mA/KV adjustment according to patient size. FINDINGS: CT HEAD WITHOUT CONTRAST: No intracranial hemorrhage, hydrocephalus or extra-axial fluid collection. Mild generalized brain atr ophy is present with mild periventricular and deep white matter chronic microvascular ischemic change s. No areas of brain edema or midline shift. Vertebral atherosclerosis. Mucoperiosteal thickening is present in the ethmoid air cells. Mild mucus is seen in the sphenoid sin uses. The calvarium is intact. CT CERVICAL SPINE WITHOUT CONTRAST: No fracture or subluxation. Moderate lower cervical degenerative changes are present. The prevertebra l soft tissues are normal in thickness. CT CHEST, ABDOMEN, PELVIS WITHOUT CONTRAST: NOTE: Lack of contrast is a significant limitation in the assessment of trauma related findings. Spec ifically, solid organ, vascular and bowel evaluation is significantly limited. The lungs are clear.Cholecystectomy clips.No pneumothorax or pericardial/pleural fluid. No evidence of intra-abdominal visceral injury, free fluid or free air is seen within the above detai led limitations. 2 cm low-density left adrenal lesion likely benign adenoma. Sigmoid diverticulosis coli without diverticulitis. No fractures. Degenerative changes are seen midthoracic and lumbar spine. IMPRESSION: Negative for acute traumatic findings within the above detailed limitations.
--- NOTE | 2023-03-21 10:00 | RAD REPORT ---
EXAM DESCRIPTION: RAD - Chest Single View - 03/21/2023 8:53 am CLINICAL HISTORY: COUGH Chest pain. COMPARISON: Chest Single View dated 03/18/2023; Chest Single View dated 01/10/2023; Chest Single View dated 06/30/2022; Chest Single View dated 06/27/2022 FINDINGS: Portable technique limits examination quality. The lungs are grossly clear. Heart is mildly prominent in size. No displaced fractures. IMPRESSION: No acute intrathoracic process suspected.
--- NOTE | 2023-03-21 10:02 | ER ---
Nurse's Notes [facility] Name: Yeimy Donohue Age: 62 yrs Sex: Female : 1960 Arrival Date: 03/21/2023 Time: 08:12 Bed 4 Private MD: Diagnosis: SARS-associated coronavirus as the cause of diseases classified elsewhere;Altered mental status, unspecified;Type 2 diabetes mellitus with hyperglycemia Presentation: 03/21 08:15 Chief complaint: EMS states: Seen in ED 2 days ago for UTI, caregiver/family reports hb worsening AMS over the last 2 days. Combative on scene. VS WNL, BGL 346. COVID+. Coronavirus screen: Client reports previous positive COVID test result. Date of collection: March 18, 2023. Ebola Screen: No symptoms or risks identified at this time. Initial Sepsis Screen: Does the patient meet any 2 criteria? No. Patient's initial sepsis screen is negative. Does the patient have a suspected source of infection? No. Patient's initial sepsis screen is negative. Risk Assessment: Do you want to hurt yourself or someone else? Patient reports no desire to harm self or others. Onset of symptoms was March 19, 2023. 08:15 Method Of Arrival: EMS: [facility] hb 08:15 Acuity: BRENTON 2 hb Historical: - Allergies: 08:15 Codeine; ld1 08:15 TOPROL; ld1 08:15 Tramadol HCl; ld1 - PMHx: 08:15 Anxiety; Cellulitis; Depression; Diabetes - NIDDM; High Cholesterol; Hypertension; HIV ld1 positive; - PSHx: 08:15 Cholecystectomy; tubal ligation; ld1 - Social history:: Smoking status: unknown. Screenin:18 [facility] ED Fall Risk Assessment (Adult) Score/Fall Risk Level 3 or more points = High hb Risk Oriented to surroundings, Maintained a safe environment, Educated pt \T\ family on fall prevention, incl call for assistance when getting out of bed, Assessed \T\ reinforced patient's understanding of fall precautions. Abuse screen: pt altered, no s/s of abuse. Nutritional screening: No deficits noted. Tuberculosis screening: No symptoms or risk factors identified. Assessment: 08:38 General: Appears in no apparent distress. comfortable, Behavior is cooperative, ld1 anxious. Pain: Denies pain. Neuro: Level of Consciousness is awake, obeys commands, confused, Oriented to person, place, time. Cardiovascular: Capillary refill < 3 seconds Patient's skin is warm and dry. Rhythm is sinus rhythm. Respiratory: Airway is patent Respiratory effort is even, unlabored. GI: Abdomen is round non-distended. :. : No signs and/or symptoms were reported regarding the genitourinary system. EENT: No signs and/or symptoms were reported regarding the EENT system. Derm: No signs and/or symptoms reported regarding the dermatologic system. Skin temperature is warm. Musculoskeletal: No signs and/or symptoms reported regarding the musculoskeletal system. Vital Signs: 08:15 BP 146 / 94; Pulse 81; Resp 18; Pulse Ox 98% on R/A; ld1 08:15 BP 146 / 94; Pulse 81; Resp 16; Temp 98.8(O); Pulse Ox 98% on R/A; hb 08:16 Temp 98.8(O); Weight 89 kg; ld1 08:16 Height 5 ft. 4 in. ; ld1 08:38 BP 110 / 86; Pulse 80; Resp 18; Pulse Ox 98% on R/A; ld1 10:20 BP 143 / 79; ld1 10:20 Pulse 84; Resp 18; Temp 98.6(O); Pulse Ox 100% on R/A; ld1 ED Course: 08:15 Patient arrived in ED. hb 08:15 Monroe Rodriguez MD is Attending Physician. latonya 08:16 Arm band placed on. ll1 08:17 Triage completed. hb 08:38 Patient has correct armband on for positive identification. Placed in gown. Bed in low ld1 position. Call light in reach. Side rails up X2. patient monitor on. Pulse ox on. NIBP on. Door closed. Noise minimized. Warm blanket given. 08:38 Urinalysis w/ reflexes Sent. ld1 08:38 No provider procedures requiring assistance completed. Inserted saline lock: 22 gauge ld1 in right hand, using aseptic technique. Blood collected. 08:40 Vidya Anthony, JULIO CESAR is Primary Nurse. ld1 08:55 XRAY Chest (1 view) In Process Unspecified. EDMS 09:06 CT Traumagram (Head C Spine CAP wo con) In Process Unspecified. EDMS 10:01 Maxi Carter MD is Referral Physician. [facility] 10:21 IV discontinued, intact, bleeding controlled, No redness/swelling at site. ld1 Administered Medications: 08:38 Drug: NS 0.9% IV 500 ml IV at bolus once Route: IV; Rate: bolus; Site: right hand; ld1 09:38 Drug: NS 0.9% IV 1000 ml IV at 125 ml/hr continuous Route: IV; Rate: 125 ml/hr; Site: ld1 right hand; 09:38 Drug: Aspirin PO 162 mg PO once Route: PO; ld1 09:38 Drug: Famotidine IVP 20 mg IVP once; dilute with 10 mL 0.9% NaCl; give over 2 minutes ld1 Route: IVP; Site: right hand; 09:38 Drug: MethylPrednisoLONE IVP 125 mg IVP once Route: IVP; Site: right hand; ld1 09:38 Drug: predniSONE PO 40 mg PO once Route: PO; ld1 09:38 Drug: AZITHromycin PO 500 mg PO once Route: PO; ld1 Medication: 08:18 VIS not applicable for this client. hb Outcome: 10:01 Discharge ordered by . latonya 10:21 Discharged to home via wheelchair, ld1 10:21 Condition: stable 10:21 Discharge instructions given to patient, Instructed on discharge instructions, follow up and referral plans. medication usage, Demonstrated understanding of instructions, follow-up care, medications, Prescriptions given X 4, 10:21 Patient left the ED. ld1 Signatures: Dispatcher [employer] Monroe Haas MD MD cha Baxter, Heather, RN RN Prabhu Jasmine RN RN [facility] Vidya Anthony RN RN ld1 Corrections: (The following items were deleted from the chart) 08:21 08:15 Coronavirus screen: Client reports previous positive COVID test result. hb hb
--- NOTE | 2023-03-21 10:02 | EDPHYS ---
Physician Documentation [facility] Name: Yeimy Donohue Age: 62 yrs Sex: Female : 1960 Arrival Date: 03/21/2023 Time: 08:12 Bed 4 Private MD: ED Physician Monroe Rodriguez HPI: 03/21 08:40 This 62 yrs old Female presents to ER via EMS with complaints of Altered latonya Mental Status. 08:40 The patient presents with confusion, decreased mental status. Onset: The latonya symptoms/episode began/occurred today. Possible causes: CVA or TIA, low blood sugar, sepsis. Associated signs and symptoms: Pertinent positives: combativeness, confusion. Current symptoms: In the emergency department the patient's symptoms are unchanged from the initial presentation, despite home interventions. Patient's baseline: Neuro: alert and fully oriented. The patient has not experienced similar symptoms in the past. Historical: - Allergies: 08:15 Codeine; ld1 08:15 TOPROL; ld1 08:15 Tramadol HCl; ld1 - PMHx: 08:15 Anxiety; Cellulitis; Depression; Diabetes - NIDDM; High Cholesterol; Hypertension; HIV ld1 positive; - PSHx: 08:15 Cholecystectomy; tubal ligation; ld1 - Social history:: Smoking status: unknown. ROS: 08:42 Constitutional: Negative for fever, chills, and weight loss, Eyes: Negative for injury, latonya pain, redness, and discharge, ENT: Negative for injury, pain, and discharge, Neck: Negative for injury, pain, and swelling, Cardiovascular: Negative for chest pain, palpitations, and edema, Respiratory: Negative for shortness of breath, cough, wheezing, and pleuritic chest pain, Abdomen/GI: Negative for abdominal pain, nausea, vomiting, diarrhea, and constipation, Back: Negative for injury and pain, : Negative for injury, bleeding, discharge, and swelling, MS/Extremity: Negative for injury and deformity, Skin: Negative for injury, rash, and discoloration, Psych: Negative for depression, anxiety, suicide ideation, homicidal ideation, and hallucinations, Allergy/Immunology: Negative for hives, rash, and allergies, Endocrine: Negative for neck swelling, polydipsia, polyuria, polyphagia, and marked weight changes, Hematologic/Lymphatic: Negative for swollen nodes, abnormal bleeding, and unusual bruising, 08:42 Neuro: Positive for weakness, Exam: 08:42 Constitutional: This is a well developed, well nourished patient who is awake, alert, latonya and in no acute distress. Head/Face: Normocephalic, atraumatic. Eyes: Pupils equal round and reactive to light, extra-ocular motions intact. Lids and lashes normal. Conjunctiva and sclera are non-icteric and not injected. Cornea within normal limits. Periorbital areas with no swelling, redness, or edema. ENT: Nares patent. No nasal discharge, no septal abnormalities noted. Tympanic membranes are normal and external auditory canals are clear. Oropharynx with no redness, swelling, or masses, exudates, or evidence of obstruction, uvula midline. Mucous membranes moist. Neck: Trachea midline, no thyromegaly or masses palpated, and no cervical lymphadenopathy. Supple, full range of motion without nuchal rigidity, or vertebral point tenderness. No Meningismus. Chest/axilla: Normal chest wall appearance and motion. Nontender with no deformity. No lesions are appreciated. Cardiovascular: Regular rate and rhythm with a normal S1 and S2. No gallops, murmurs, or rubs. Normal PMI, no JVD. No pulse deficits. Respiratory: Lungs have equal breath sounds bilaterally, clear to auscultation and percussion. No rales, rhonchi or wheezes noted. No increased work of breathing, no retractions or nasal flaring. Abdomen/GI: Soft, non-tender, with normal bowel sounds. No distension or tympany. No guarding or rebound. No evidence of tenderness throughout. Back: No spinal tenderness. No costovertebral tenderness. Full range of motion. Female : Normal external genitalia. Skin: Warm, dry with normal turgor. Normal color with no rashes, no lesions, and no evidence of cellulitis. MS/ Extremity: Pulses equal, no cyanosis. Neurovascular intact. Full, normal range of motion. Neuro: Awake and alert, GCS 15, oriented to person, place, time, and situation. Cranial nerves II-XII grossly intact. Motor strength 5/5 in all extremities. Sensory grossly intact. Cerebellar exam normal. Normal gait. Psych: Awake, alert, with orientation to person, place and time. Behavior, mood, and affect are within normal limits. 08:42 ECG was reviewed by the Attending Physician. 09:16 Musculoskeletal/extremity: ROM: no acute changes, intact in all extremities, latonya Circulation is intact in all extremities. Sensation intact. Compartment Syndrome exam of affected extremity: is normal. Joints: All joints appear normal with full range of motion. DVT Exam: No signs of deep vein thrombosis. no pain, no swelling, no tenderness, negative Homans' sign noted on exam, no appreciated bluish discoloration, no erythema, no increased warmth, Vital Signs: 08:15 BP 146 / 94; Pulse 81; Resp 18; Pulse Ox 98% on R/A; ld1 08:15 BP 146 / 94; Pulse 81; Resp 16; Temp 98.8(O); Pulse Ox 98% on R/A; hb 08:16 Temp 98.8(O); Weight 89 kg; ld1 08:16 Height 5 ft. 4 in. ; ld1 08:38 BP 110 / 86; Pulse 80; Resp 18; Pulse Ox 98% on R/A; ld1 10:20 BP 143 / 79; ld1 10:20 Pulse 84; Resp 18; Temp 98.6(O); Pulse Ox 100% on R/A; ld1 MDM: 08:15 Patient medically screened. latonya 08:44 Differential Diagnosis: CVA, electrolyte abnormality, hypoglycemia, intracranial bleed, latonya seizure, TIA, UTI, volume depletion. Data reviewed: vital signs, nurses notes, lab test result(s), EKG, radiologic studies. Consideration of Admission/Observation Escalation of care including admission/observation considered. I considered the following discharge prescriptions or medication management in the emergency department Medications were administered in the Emergency Department. See MAR. Test considered but Not performed: MRI: no mri brain. Care significantly affected by the following chronic conditions: Diabetes, Hypertension, Obesity, hiv pos, anxiety, depression, high cholesterol. 03/21 08:23 Order name: Basic Metabolic Panel; Complete Time: : latonya 03/21 08:23 Order name: CBC with Diff; Complete Time: 09:03/21 08:23 Order name: LFT's; Complete Time: 09:21 03/21 08:23 Order name: Magnesium; Complete Time: : latonya 03/21 08:23 Order name: NT PRO-BNP; Complete Time: 09:03/21 08:23 Order name: PT-INR; Complete Time: 09:16 [facility] 03/21 08:23 Order name: Troponin HS; Complete Time: 09:21 [facility] 03/21 08:23 Order name: Urinalysis w/ reflexes; Complete Time: 09:01 [facility] 03/21 08:44 Order name: C-Reactive Protein; Complete Time: 09:21 EDMS 03/21 08:23 Order name: XRAY Chest (1 view); Complete Time: 10: [facility] 03/21 08:23 Order name: CT Traumagram (Head C Spine CAP wo con); Complete Time: 10:01 [facility] 03/21 08:23 Order name: EKG; Complete Time: 08:24 [facility] 03/21 08:23 Order name: Cardiac monitoring; Complete Time: 08:38 [facility] 03/21 08:23 Order name: EKG - Nurse/Tech; Complete Time: 08:38 [facility] 03/21 08:23 Order name: IV Saline Lock; Complete Time: 08:38 [facility] 03/21 08:23 Order name: Labs collected and sent; Complete Time: 08:38 [facility] 03/21 08:23 Order name: O2 Per Protocol; Complete Time: 08:38 [facility] 03/21 08:23 Order name: O2 Sat Monitoring; Complete Time: 08:38 [facility] EC:42 Rate is 85 beats/min. Rhythm is regular. QRS [place] is Normal. NE interval is normal. QRS latonya interval is normal. QT interval is normal. No Q waves. T waves are Normal. No ST changes noted. Clinical impression: Normal ECG and No evidence of ischemia. Interpreted by me. Reviewed by me. Administered Medications: 08:38 Drug: NS 0.9% IV 500 ml IV at bolus once Route: IV; Rate: bolus; Site: right hand; ld1 09:38 Drug: NS 0.9% IV 1000 ml IV at 125 ml/hr continuous Route: IV; Rate: 125 ml/hr; Site: ld1 right hand; :38 Drug: Aspirin PO 162 mg PO once Route: PO; ld1 09:38 Drug: Famotidine IVP 20 mg IVP once; dilute with 10 mL 0.9% NaCl; give over 2 minutes ld1 Route: IVP; Site: right hand; 09:38 Drug: MethylPrednisoLONE IVP 125 mg IVP once Route: IVP; Site: right hand; ld1 09:38 Drug: predniSONE PO 40 mg PO once Route: PO; ld1 09:38 Drug: AZITHromycin PO 500 mg PO once Route: PO; ld1 Disposition Summary: 03/21/23 10:01 Discharge Ordered Notes: Location: Home latonya Problem: new latonya Symptoms: have improved latonya Condition: Stable latonya Diagnosis - SARS-associated coronavirus as the cause of diseases classified elsewhere latonya - Altered mental status, unspecified latonya - Type 2 diabetes mellitus with hyperglycemia latonya Followup: latonya - With: Private Physician - When: 2 - 3 days - Reason: Recheck today's complaints, Continuance of care, Re-evaluation by your physician Followup: latonya - With: Maxi Carter MD - When: 2 - 3 days - Reason: Recheck today's complaints, Re-evaluation by your physician Discharge Instructions: - Discharge Summary Sheet latonya - Type 2 Diabetes Mellitus, Diagnosis, Adult latonya - Hyperglycemia latonya - Diabetes Mellitus and Nutrition, Adult latonya - Hyperglycemia, Tymj-iv-Dxog latonya - Aspirin and Your Heart [facility] - COVID-19 latonya - 10 Things You Can Do to Manage Your COVID-19 Symptoms at Home - [facility] (09/21/2020) [facility] - COVID-19: What to Do If You Are Sick - [facility] (05/28/2021) [facility] Forms: - Medication Reconciliation Form [facility] - Thank You Letter [facility] - Antibiotic Education latonya - Prescription Opioid Use latonya - Patient Portal Instructions [facility] - Leadership Thank You Letter [facility] Prescriptions: - budesonide-formoterol 160-4.5 mcg/actuation Inhalation HFA Aerosol Inhaler - inhale 1 puff INHALATION route 2 times per day; 1 unit; Refills: 0, Product [facility] Selection Permitted - Pepcid 20 mg Oral tablet - take 1 tablet ORAL route every 12 hours for 21 days; 42 tablet; Refills: 0, [facility] Product Selection Permitted - Prednisone 20 mg Oral Tablet - take 2 tablets ORAL route once daily for 5 days; 10 tablet; Refills: 0, Product [facility] Selection Permitted - Zithromax 500 mg Oral tablet - take 1 tablet ORAL route once daily for 4 days; 4 tablet; Refills: 0, Product [facility] Selection Permitted Signatures: Dispatcher [employer] Monroe Haas MD MD cha Baxter, Heather, RN RN Vidya Anthony RN RN ld1 Corrections: (The following items were deleted from the chart) 08:45 08:29 C-REACTIVE PROTEIN+C.LAB.BRZ ordered. EDMS EDMS
[2023-03-21 10:47] VITALS: BP 143/79; TEMP 98.6; O2SAT 100
--- NOTE | 2023-03-23 17:05 | EKG ---
Test Date: 2023-03-21 Test Time: 08:23:05 Technical Aide: DEMETRIO MEASUREMENT RESULTS: Intervals: Rate: 85 IL: 162 QRSD: 70 QT: 376 QTc: 447 Cecil: P: 47 IL: 162 QRS: 68 T: 25 INTERPRETIVE STATEMENTS: Normal sinus rhythm Normal ECG Compared to ECG 03/18/2023 03:00:29 Myocardial infarct finding no longer present Electronically Signed On 03-23-23 16:58:53 [employer] by Juan A Thurman
== END ==
LOC: ER 08:12
DX: U07.1 COVID-19 (principal); E11.65 Type 2 diabetes mellitus with hyperglycemia; I10 Essential (primary) hypertension; Z21 Asymptomatic human immunodeficiency virus [HIV] infection status; Z88.5 Allergy status to narcotic agent
CPT/HCPCS: 93005; 85025; 81001; 80048; 36415; 83735; 85610; 80076; 84484; 83880; 86140; 70450; 71250; 72125; 71045; 96375; 96374; 99285; J7512; J2930; J7040

== ENCOUNTER 2024-04-30 12:23 | Emergency (ER) | payer OTHER ==
[2024-04-30 12:58] LABS: Absolute Eosinophils 0.2 K/uL (0-0.5); Absolute Lymphocytes (CBC) 1.8 K/uL (0.7-4.9); Absolute Monocytes 0.4 K/uL (0.1-1.3); Absolute Neutrophil 3.6 K/uL (1.8-8.0); Basophils % 0.5 % (0-1.3); Eosinophils % 3.5 % (0-4.4); Hematocrit 37.4 % (36.0-45.0); Hemoglobin 13.3 g/dL (12.0-15.0); Lymphocytes % 30.2 % (15.3-44.8); MCH 31.9 pg (27.0-35.0); MCHC 35.6 g/dL (32.0-36.0); MCV 89.4 fL (80-100); MPV 8.8 fL (7.6-11.3); Monocytes % 7.1 % (3.3-12.3); Neutrophils % 58.7 % (41.7-73.7); Nucleated Red Blood Cells % 0.1 % (0-0); Platelets 227 thou/uL (152-406); RBC Red Blood Cell Count 4.19 M/uL (3.86-4.86)
[2024-04-30] MEDS ORDERED: LORazepam 2 MG/ML VIAL ONE (13:01)
[2024-04-30] MEDS ORDERED: FOSPHENYTOIN PE 500 MG/10 ML VIAL ONE (13:02)
[2024-04-30] MEDS ORDERED: NA CHLORIDE 0.9% 500 ML ONE (13:03)
[2024-04-30] MEDS ORDERED: NA CHLORIDE 0.9% 100 ML ONE (13:03)
[2024-04-30 13:17] LABS: Albumin 3.1 g/dL (3.4-5.0); Albumin/Globulin Ratio 0.9 (1.1-1.8); Anion Gap 11.9 mEq/L (5.0-15.0); Bilirubin Total 0.3 mg/dL (0.2-1.0); Globulin 3.4 g/dL (2.3-3.5); Phenytoin (Dilantin) Level 5.5 mcg/mL (10.0-20.0); Potassium 3.9 mEq/L (3.5-5.1); Protein, Total 6.5 g/dL (6.4-8.2); Troponin High Sensitivity 7.6 pg/mL (<58.9)
--- NOTE | 2024-04-30 13:51 | ER ---
Nurse's Notes [facility] Name: Yeimy Donohue Age: 63 yrs Sex: Female : 1960 Arrival Date: 04/30/2024 Time: 12:23 Bed 3 Private MD: Diagnosis: Fall on same level, unspecified;Contusion of right knee;Epileptic seizures related to external causes, not intractable-SUBTHERAPUTIC DILANTIN LEVEL Presentation: 04/30 12:36 Acuity: BRENTON 3 iw 12:36 Chief complaint: EMS states: pt fell at grocery store, when EMS arrived she had a iw seizure , has hx of seizures, pt is A\T\ O X 4 upon arrival to ER. Coronavirus screen: At this time, the client does not indicate any symptoms associated with coronavirus-19. Ebola Screen: No symptoms or risks identified at this time. Initial Sepsis Screen: Does the patient meet any 2 criteria? No. Patient's initial sepsis screen is negative. Does the patient have a suspected source of infection? No. Patient's initial sepsis screen is negative. Risk Assessment: Do you want to hurt yourself or someone else? Patient reports no desire to harm self or others. Onset of symptoms was April 30, 2024. 12:36 Method Of Arrival: EMS: [facility] iw 12:39 Care prior to arrival: Medication(s) given: IV tylenol 1 gm IV initiated. 22 GA, in the iw right wrist. Historical: - Allergies: 12:38 Codeine; iw 12:38 TOPROL; iw 12:38 Tramadol HCl; iw - PMHx: 12:38 Cellulitis; Anxiety; High Cholesterol; iw 12:39 Depression; Diabetes - NIDDM; HIV positive; Hypertension; Seizure; iw - PSHx: 12:39 Cholecystectomy; tubal ligation; iw - Immunization history:: Adult Immunizations up to date. - Infectious Disease History:: Denies. - Social history:: Smoking status: Patient denies any tobacco usage or history of. Screenin:12 [facility] ED Fall Risk Assessment (Adult) History of falling in the last 3 months, ld1 including since admission No falls in past 3 months (0 pts) Confusion or Disorientation No (0 pts) Intoxicated or Sedated No (0 pts) Impaired Gait No (0 pts) Mobility Assist Device Used No (0 pt) Altered Elimination No (0 pt) Score/Fall Risk Level 0 - 2 = Low Risk Oriented to surroundings, Hourly rounding (assess needs \T\ fall precautionary measures) done. Abuse screen: Denies threats or abuse. Denies injuries from another. Nutritional screening: No deficits noted. Tuberculosis screening: No symptoms or risk factors identified. Assessment: 13:12 General: Appears in no apparent distress. comfortable, Behavior is calm, cooperative, ld1 appropriate for age. Pain: Denies pain. Neuro: Level of Consciousness is awake, alert, obeys commands, Oriented to person, place, time, situation. Neuro: Seizure activity reported prior to arrival. Cardiovascular: Capillary refill < 3 seconds Patient's skin is warm and dry. Respiratory: Airway is patent Respiratory effort is even, unlabored. GI: Abdomen is round non-distended. : No signs and/or symptoms were reported regarding the genitourinary system. EENT: No signs and/or symptoms were reported regarding the EENT system. Derm: No signs and/or symptoms reported regarding the dermatologic system. Musculoskeletal: No signs and/or symptoms reported regarding the musculoskeletal system. 14:12 Reassessment: Patient appears in no apparent distress at this time. No changes from ld1 previously documented assessment. Patient and/or family updated on plan of care and expected duration. Pain level reassessed. Patient is alert, oriented x 3, equal unlabored respirations, skin warm/dry/pink. Vital Signs: 12:36 BP 132 / 66; Pulse 77; Resp 16; Temp 98.1; Pulse Ox 94% ; iw 13:12 BP 136 / 48; Pulse 77; Resp 18; Pulse Ox 96% on R/A; ld1 14:12 BP 129 / 56; Pulse 79; Resp 18; Pulse Ox 100% on R/A; ld1 ED Course: 12:26 Patient arrived in ED. latonya 12:26 Monroe Rodriguez MD is Attending Physician. latonya 12:35 Roro Dahl, JULIO CESAR is Primary Nurse. iw 12:36 Triage completed. iw 12:40 Arm band placed on. iw 12:54 Troponin High Sensitivity Sent. cc6 12:54 Comprehensive Metabolic Panel Sent. cc6 12:54 CBC with Diff Sent. cc6 13:12 Patient has correct armband on for positive identification. Placed in gown. Bed in low ld1 position. Call light in reach. Side rails up X2. secured entrance monitor on. Pulse ox on. NIBP on. Door closed. Noise minimized. Warm blanket given. 13:12 No provider procedures requiring assistance completed. ld1 13:12 Maintain EMS IV. Dressing intact. Good blood return noted. Site clean \T\ dry. Gauge \T\ ld 1 site: 22g RH. 13:20 Knee Right 3 View XRAY In Process Unspecified. EDMS 13:49 Olivier Lewis MD is Referral Physician. [facility] 13:49 John Lisa MD is Referral Physician. [facility] 14:13 IV discontinued, intact, bleeding controlled, No redness/swelling at site. ld1 Administered Medications: 13:10 Drug: Fosphenytoin IVPB 500 mg IVPB once; (mix in 50 to 100mL NS) Route: IVPB; Site: ld1 right hand; 14:13 Follow up: Response: No adverse reaction; IV Status: Completed infusion; IV Intake: ld1 100ml 13:10 Drug: Ativan IVP 1 mg IVP once Route: IVP; Site: right hand; ld1 14:13 Follow up: Response: No adverse reaction ld1 13:10 Drug: NS 0.9% IV 500 ml 500 ml IV at 1 bolus once; to be given as a bolus over 30 ld1 minutes Volume: 500 ml; Route: IV; Rate: 1 bolus; Site: right hand; 14:13 Follow up: Response: No adverse reaction; IV Status: Completed infusion; IV Intake: ld1 500ml 14:12 Drug: Phenytoin Sodium Extended PO 200 mg PO once Route: PO; ld1 14:13 Follow up: Response: No adverse reaction ld1 Medication: 13:12 VIS not applicable for this client. ld1 Intake: 14:13 IV: 500ml; Total: 500ml. ld1 14:13 IV: 100ml; Total: 600ml. ld1 Outcome: 13:50 Discharge ordered by . [facility] 14:13 Discharged to home via wheelchair, with family, ld1 14:13 Condition: stable 14:13 Discharge instructions given to patient, family, Instructed on discharge instructions, follow up and referral plans. medication usage, Demonstrated understanding of instructions, follow-up care, medications, Prescriptions given X 1, 14:14 Patient left the ED. ld1 Signatures: Dispatcher [employer] Monroe Haas MD MD cha Williams, Irene RN Vidya Olvera RN RN ld1 Neva Santos cc6
--- NOTE | 2024-04-30 13:51 | EDPHYS ---
Physician Documentation [facility] Name: Yeimy Donohue Age: 63 yrs Sex: Female : 1960 Arrival Date: 04/30/2024 Time: 12:23 Bed 3 Private MD: ED Physician Monroe Rodriguez HPI: 04/30 13:43 This 63 yrs old Female presents to ER via EMS with complaints of Fall Injury, latonya Seizure. 13:43 Details of fall: The patient fell from an upright position, while walking. Onset: The latonya symptoms/episode began/occurred just prior to arrival. Associated injuries: The patient sustained right leg, painful injury, swelling. Severity of symptoms: At their worst the symptoms were moderate, in the emergency department the symptoms are unchanged. Historical: - Allergies: 12:38 Codeine; iw 12:38 TOPROL; iw 12:38 Tramadol HCl; iw - PMHx: 12:38 Cellulitis; Anxiety; High Cholesterol; iw 12:39 Depression; Diabetes - NIDDM; HIV positive; Hypertension; Seizure; iw - PSHx: 12:39 Cholecystectomy; tubal ligation; iw - Immunization history:: Adult Immunizations up to date. - Infectious Disease History:: Denies. - Social history:: Smoking status: Patient denies any tobacco usage or history of. ROS: 13:45 Constitutional: Negative for fever, chills, and weight loss, Eyes: Negative for injury, latonya pain, redness, and discharge, ENT: Negative for injury, pain, and discharge, Neck: Negative for injury, pain, and swelling, Cardiovascular: Negative for chest pain, palpitations, and edema, Respiratory: Negative for shortness of breath, cough, wheezing, and pleuritic chest pain, Abdomen/GI: Negative for abdominal pain, nausea, vomiting, diarrhea, and constipation, Back: Negative for injury and pain, : Negative for injury, bleeding, discharge, and swelling, Skin: Negative for injury, rash, and discoloration, Psych: Negative for depression, anxiety, suicide ideation, homicidal ideation, and hallucinations, Allergy/Immunology: Negative for hives, rash, and allergies, Endocrine: Negative for neck swelling, polydipsia, polyuria, polyphagia, and marked weight changes, Hematologic/Lymphatic: Negative for swollen nodes, abnormal bleeding, and unusual bruising, 13:45 MS/extremity: Positive for injury or acute deformity, pain, tenderness, of the right leg, 13:45 Neuro: Positive for seizure activity, Exam: 13:45 Constitutional: This is a well developed, well nourished patient who is awake, alert, latonya and in no acute distress. Head/Face: Normocephalic, atraumatic. Eyes: Pupils equal round and reactive to light, extra-ocular motions intact. Lids and lashes normal. Conjunctiva and sclera are non-icteric and not injected. Cornea within normal limits. Periorbital areas with no swelling, redness, or edema. ENT: Nares patent. No nasal discharge, no septal abnormalities noted. Tympanic membranes are normal and external auditory canals are clear. Oropharynx with no redness, swelling, or masses, exudates, or evidence of obstruction, uvula midline. Mucous membranes moist. Neck: Trachea midline, no thyromegaly or masses palpated, and no cervical lymphadenopathy. Supple, full range of motion without nuchal rigidity, or vertebral point tenderness. No Meningismus. Chest/axilla: Normal chest wall appearance and motion. Nontender with no deformity. No lesions are appreciated. Cardiovascular: Regular rate and rhythm with a normal S1 and S2. No gallops, murmurs, or rubs. Normal PMI, no JVD. No pulse deficits. Respiratory: Lungs have equal breath sounds bilaterally, clear to auscultation and percussion. No rales, rhonchi or wheezes noted. No increased work of breathing, no retractions or nasal flaring. Abdomen/GI: Soft, non-tender, with normal bowel sounds. No distension or tympany. No guarding or rebound. No evidence of tenderness throughout. Back: No spinal tenderness. No costovertebral tenderness. Full range of motion. Skin: Warm, dry with normal turgor. Normal color with no rashes, no lesions, and no evidence of cellulitis. Neuro: Awake and alert, GCS 15, oriented to person, place, time, and situation. Cranial nerves II-XII grossly intact. Motor strength 5/5 in all extremities. Sensory grossly intact. Cerebellar exam normal. Normal gait. Psych: Awake, alert, with orientation to person, place and time. Behavior, mood, and affect are within normal limits. 13:45 Musculoskeletal/extremity: ROM: intact in all extremities, full active range of motion, full passive range of motion, Circulation is intact in all extremities. Sensation intact. Compartment Syndrome exam of affected extremity: is normal. Weight bearing: able to fully bear weight, without difficulty, DVT Exam: negative Homans' sign noted on exam, no appreciated bluish discoloration, no erythema, no increased warmth, pain, swelling, tenderness, 14:06 ECG was reviewed by the Attending Physician. [facility] Vital Signs: 12:36 BP 132 / 66; Pulse 77; Resp 16; Temp 98.1; Pulse Ox 94% ; iw 13:12 BP 136 / 48; Pulse 77; Resp 18; Pulse Ox 96% on R/A; ld1 14:12 BP 129 / 56; Pulse 79; Resp 18; Pulse Ox 100% on R/A; ld1 MDM: 12:27 Medical Screening Exam initiated latonya 13:46 Differential diagnosis: closed fracture, contusion, abrasion, tendonitis. Differential latonya diagnosis: abrasion, contusion, fracture, multiple trauma, sprain, strain, seizure. Data reviewed: vital signs, nurses notes, lab test result(s), radiologic studies, plain films. Consideration of Admission/Observation Escalation of care including admission/observation considered. I considered the following discharge prescriptions or medication management in the emergency department Medications were administered in the Emergency Department. See MAR. Independent interpretation of the following test(s) in the Emergency Department X-Ray: My interpretation is RIGHT KNEE. Test considered but Not performed: Ultrasound NO US DOPPLER. Historians other than the Patient: EMS: EMS WELL INFORMED. Care significantly affected by the following chronic conditions: Diabetes, Hypertension, Obesity, HIV, ANXIETY, DEPRESSION. 04/30 12:28 Order name: CBC with Diff; Complete Time: 13:41 [facility] 04/30 12:28 Order name: Comprehensive Metabolic Panel; Complete Time: 13:41 [facility] 04/30 12:28 Order name: Troponin High Sensitivity; Complete Time: 13:41 [facility] 04/30 12:28 Order name: Dilantin; Complete Time: 13:41 [facility] 04/30 12:28 Order name: Knee Right 3 View XRAY [facility] 04/30 12:28 Order name: EKG; Complete Time: 12:29 [facility] 04/30 12:28 Order name: EKG - Nurse/Tech; Complete Time: 12:54 [facility] 04/30 12:28 Order name: Ice pack; Complete Time: 12:58 latonya 04/30 13:43 Order name: Marko wrap-joint; Complete Time: 14:02 latonya EC:06 Rate is 73 beats/min. Rhythm is regular. QRS Maple is Normal. DC interval is normal. QRS latonya interval is normal. QT interval is normal. T waves are Normal. No ST changes noted. Clinical impression: NSR w/ Non-specific ST/T Changes and No evidence of ischemia. Interpreted by me. Reviewed by me. Administered Medications: 13:10 Drug: Fosphenytoin IVPB 500 mg IVPB once; (mix in 50 to 100mL NS) Route: IVPB; Site: ld1 right hand; 14:13 Follow up: Response: No adverse reaction; IV Status: Completed infusion; IV Intake: ld1 100ml 13:10 Drug: Ativan IVP 1 mg IVP once Route: IVP; Site: right hand; ld1 14:13 Follow up: Response: No adverse reaction ld1 13:10 Drug: NS 0.9% IV 500 ml 500 ml IV at 1 bolus once; to be given as a bolus over 30 ld1 minutes Volume: 500 ml; Route: IV; Rate: 1 bolus; Site: right hand; 14:13 Follow up: Response: No adverse reaction; IV Status: Completed infusion; IV Intake: ld1 500ml 14:12 Drug: Phenytoin Sodium Extended PO 200 mg PO once Route: PO; ld1 14:13 Follow up: Response: No adverse reaction ld1 Disposition Summary: 04/30/24 13:50 Discharge Ordered Notes: Location: Home latonya Problem: new latonya Symptoms: have improved latonya Condition: Stable latonya Diagnosis - Fall on same level, unspecified latonya - Contusion of right knee latonya - Epileptic seizures related to external causes, not intractable - SUBTHERAPUTIC latonya DILANTIN LEVEL Followup: latonya - With: Private Physician - When: 2 - 3 days - Reason: Recheck today's complaints, Continuance of care, Re-evaluation by your physician Followup: latonya - With: Olivier Lewis MD - When: 2 - 3 days - Reason: Recheck today's complaints, Re-evaluation by your physician Followup: latonya - With: John Lisa MD - When: 2 - 3 days - Reason: Recheck today's complaints, Re-evaluation by your physician Discharge Instructions: - Discharge Summary Sheet latonya - Fall Prevention in the Home, Adult latonya - Seizure, Adult latonya - Acute Knee Pain, Adult latonya - Seizure, Adult, [id number] latonya - Fall Prevention in the Home, Adult, [id number] latonya - Acute Knee Pain, Adult, [id number] [facility] Forms: - Medication Reconciliation Form laotnya - Antibiotic Education latonya - Prescription Opioid Use latonya - Patient Portal Instructions [facility] - Leadership Thank You Letter [facility] Prescriptions: - Dilantin Kapseal 100 mg Oral capsule - take 3 capsule ORAL route once daily at bedtime; 60 capsule; Refills: 0, latonya Product Selection Permitted Signatures: Dispatcher [employer] Monroe Haas MD MD cha Williams, Irene, RN RN iw Vidya Anthony RN RN ld1
--- NOTE | 2024-04-30 13:52 | RAD REPORT ---
EXAM: XR Knee Right 3 View HISTORY: [facility] MAIN PAIN Bed Name: 3 COMPARISON: None TECHNIQUE: 3 views of the right knee were obtained. FINDINGS: No knee effusion is seen. There is no evidence of acute fracture or dislocation. Mild-to-m oderate tricompartmental degenerative changes are seen. No soft tissue swelling or other soft tissue abnormality is present. IMPRESSION: No evidence of acute osseous abnormality. Mild to moderate degenerative changes.
[2024-04-30] MEDS ORDERED: PHENYTOIN ER 100 MG CAP PO ONE (14:04)
[2024-04-30 16:47] VITALS: TEMP 98.1
[2024-04-30 16:50] VITALS: BP 129/56; O2SAT 100
--- NOTE | 2024-05-02 12:02 | EKG ---
Test Date: 2024-04-30 Test Time: 12:43:49 [employer]er: ANDREE MEASUREMENT RESULTS: Intervals: Rate: 73 NE: 160 QRSD: 68 QT: 394 QTc: 434 [place]: P: 47 NE: 160 QRS: 69 T: 52 INTERPRETIVE STATEMENTS: Normal sinus rhythm Normal ECG Compared to ECG 03/21/2023 08:23:05 No significant changes Electronically Signed On 05-02-24 11:59:25 GEOLOGICAL SURVEY FIELD ASSISTANT by Kelvin Cabezas
== END 2024-04-30 14:14 | disposition home or self-care (01) ==
LOC: ER 12:23
DX: G40.509 Epileptic seizures related to external causes, not intractable, without status epilepticus (principal); S80.01XA Contusion of right knee, initial encounter; W18.30XA Fall on same level, unspecified, initial encounter; R89.2 Abnormal level of other drugs, medicaments and biological substances in specimens from other organs, systems and tissues; Z21 Asymptomatic human immunodeficiency virus [HIV] infection status
CPT/HCPCS: 96365; 93005; 85025; 36415; 80185; 84484; 80053; 73562; 96375; 99285; Q2009; J7040

== ENCOUNTER 2024-10-17 20:40 | Emergency (ER) | payer OTHER ==
[2024-10-17 21:52] LABS: Absolute Lymphocytes (CBC) 1.5 K/uL (0.7-4.9); Hematocrit 43.8 % (36.0-45.0); Hemoglobin 15.5 g/dL (12.0-15.0); MCH 31.0 pg (27.0-35.0); MCHC 35.4 g/dL (32.0-36.0); MCV 87.6 fL (80-100); MPV 9.5 fL (7.6-11.3); Nucleated RBC Absolute Count 0.0 (0-0); Nucleated Red Blood Cells % 0.0 % (0-0); RBC Red Blood Cell Count 5.01 M/uL (3.86-4.86); White Blood Count 5.10 thou/uL (4.3-10.9)
[2024-10-17 22:08] LABS: ALT/SGPT 22 U/L (13-56); Albumin 3.4 g/dL (3.4-5.0); Albumin/Globulin Ratio 1.0 (1.1-1.8); Alkaline Phosphatase 171 U/L (45-117); Anion Gap 10.5 mEq/L (5.0-15.0); BUN Blood Urea Nitrogen 6 mg/dL (7-18); Globulin 3.4 g/dL (2.3-3.5); Lipase 46 U/L (13-75); Potassium 3.5 mEq/L (3.5-5.1)
[2024-10-17 22:09] LABS: AST/SGOT < 10 U/L (15-37); Glucose Level 435 mg/dL (74-106)
[2024-10-17] MEDS ORDERED: INSULIN REGULAR (HUMAN) 100 UNIT/ML ONE (22:23)
--- NOTE | 2024-10-18 00:58 | ER ---
Nurse's Notes [facility] Name: Yeimy Donohue Age: 63 yrs Sex: Female : 1960 Arrival Date: 10/17/2024 Time: 20:40 Bed 13 Private MD: Diagnosis: Hyperglycemia, unspecified;Abdominal pain, Generalized Presentation: 10/17 20:43 Chief complaint: EMS states: patients is having high blood sugar, body weakness altered rg5 mental status before we got there. 20:43 Method Of Arrival: EMS rg5 20:43 Coronavirus screen: Client denies travel out of the [place] in the last 14 days. Ebola rg5 Screen: Patient negative for fever greater than or equal to 101.5 degrees Fahrenheit, and additional compatible Ebola Virus Disease symptoms. Initial Sepsis Screen: Does the patient meet any 2 criteria? No. Patient's initial sepsis screen is negative. Does the patient have a suspected source of infection? No. Patient's initial sepsis screen is negative. Risk Assessment: Do you want to hurt yourself or someone else? Patient reports no desire to harm self or others. Onset of symptoms was October 17, 2024. Care prior to arrival: Medication(s) given: Normal saline infusion, 200 ml IV initiated. 22 GA, in the left forearm, Glucose check: 483. Activity prior to arrival: high blood sugar. 20:43 Acuity: BR[place] 3 rg5 Triage Assessment: 20:45 General: Appears in no apparent distress. comfortable, Behavior is calm, cooperative, rg5 appropriate for age. Pain: Complains of pain in abdomen. EENT: No signs and/or symptoms were reported regarding the EENT system. Neuro: Oriented to person, place, time. 20:45 Cardiovascular: Denies chest pain, Patient's skin is warm and dry. Respiratory: Airway rg5 is patent Trachea midline Respiratory effort is even, unlabored. GI: Abdomen is round non-distended, Reports lower abdominal pain, diarrhea. : No signs and/or symptoms were reported regarding the genitourinary system. Derm: Skin is intact, Skin is normal. Musculoskeletal: Circulation, motion, and sensation intact. Range of motion: intact in all extremities. Historical: - Allergies: 21:48 Codeine; rg5 21:48 TOPROL; rg5 21:48 Tramadol HCl; rg5 - PMHx: 21:48 Anxiety; Cellulitis; Depression; Diabetes - NIDDM; High Cholesterol; HIV positive; rg5 Hypertension; Seizure; - PSHx: 21:48 Cholecystectomy; tubal ligation; rg5 - Immunization history:: Adult Immunizations unknown. - Infectious Disease History:: Denies. - Social history:: Smoking status: Patient denies any tobacco usage or history of. Screenin:00 [facility] ED Fall Risk Assessment (Adult) History of falling in the last 3 months, rg5 including since admission No falls in past 3 months (0 pts) Confusion or Disorientation Yes (5 pts) Intoxicated or Sedated No (0 pts) Impaired Gait Yes (1 pt) Mobility Assist Device Used Yes (1 pt) Altered Elimination No (0 pt) Score/Fall Risk Level 3 or more points = High Risk Oriented to surroundings, Maintained a safe environment, Hourly rounding (assess needs \T\ fall precautionary measures) done. Abuse screen: Denies threats or abuse. Nutritional screening: No deficits noted. 21:00 Tuberculosis screening: No symptoms or risk factors identified. rg5 Assessment: 21:51 Reassessment: see triage assessment. rg5 22:30 Reassessment: No changes from previously documented assessment. Patient and/or family rg5 updated on plan of care and expected duration. Pain level reassessed. Patient is alert, oriented x 3, equal unlabored respirations, skin warm/dry/pink. 23:46 Reassessment: Patient and/or family updated on plan of care and expected duration. Pain rg5 level reassessed. Patient is alert, oriented x 3, equal unlabored respirations, skin warm/dry/pink. 10/18 00:12 Reassessment: Patient appears in no apparent distress at this time. No changes from cp4 previously documented assessment. Patient and/or family updated on plan of care and expected duration. Pain level reassessed. Patient is alert, oriented x 3, equal unlabored respirations, skin warm/dry/pink. Vital Signs: 10/17 20:45 BP 153 / 65; Pulse 75; Resp 18; Temp 98; Pulse Ox 99% on R/A; Weight 78.02 kg; Height 4 rg5 ft. 11 in. ; Pain 3/10; 21:52 BP 161 / 68; Pulse 76; Resp 18; Pulse Ox 99% on R/A; rg5 10/18 00:00 BP 157 / 61; Pulse 77; Resp 18; Pulse Ox 96% ; cp4 01:24 BP 160 / 64; Pulse 77; Resp 18; Pulse Ox 98% ; cp4 10/17 20:45 Body Mass Index 34.74 (78.02 kg, 149.86 cm) rg5 10/17 20:45 Pain Scale: Adult rg5 ED Course: 10/17 20:43 Patient arrived in ED. kb 20:43 Yolanda Fulton FNP-C is [facility]. kb 20:43 Thomas Yañez MD is Attending Physician. kb 20:45 Arm band placed on. rg5 20:58 Oscar Lorenzo, JULIO CESAR is Primary Nurse. rg5 21:00 Patient has correct armband on for positive identification. Client placed on continuous rg5 cardiac and pulse oximetry monitoring. NIBP monitoring applied. precinct captain on. Pulse ox on. Door closed. Noise minimized. Warm blanket given. 21:00 No provider procedures requiring assistance completed. Inserted saline lock: 22 gauge rg5 in right antecubital area, using aseptic technique. Blood collected. Flushed with 10 mL NS. 21:48 Triage completed. rg5 23:00 CT Abd/Pelvis - IV Contrast Only In Process Unspecified. EDMS 10/18 01:25 Provided Education on: abdominal pain. cp4 01:25 intact, bleeding controlled, No redness/swelling at site. Pressure dressing applied. cp4 Administered Medications: 10/17 20:58 Drug: NS 0.9% IV 1000 ml IV at 1 bolus Per protocol; to be given as a bolus over 60 rg5 minutes Route: IV; Rate: 1 bolus; Site: left forearm; 10/18 01:26 Follow up: IV Status: Completed infusion cp4 10/17 22:24 Drug: Insulin Regular Human IVP 10 units IVP once {Co-Signature: tb4 (Yasmine Monaco rg5 RN).} Route: IVP; Site: left antecubital; 10/18 00:03 Follow up: Response: No adverse reaction rg5 Medication: 10/17 23:46 VIS not applicable for this client. rg5 Outcome: 10/18 00:57 Discharge ordered by . kb 01:25 Discharged to home ambulatory, cp4 01:25 Condition: stable 01:25 Discharge instructions given to patient, family, Instructed on discharge instructions, follow up and referral plans. Demonstrated understanding of instructions, follow-up care, 01:26 Patient left the ED. cp4 Signatures: Dispatcher [employer] Yolanda Cat, RUDY LIN-Nimo Ba cp4 Oscar Lorenzo, RN RN rg5 Yasmine Monaco RN tb4
--- NOTE | 2024-10-18 00:58 | EDPHYS ---
Physician Documentation [facility] Name: Yeimy Donohue Age: 63 yrs Sex: Female : 1960 Arrival Date: 10/17/2024 Time: 20:40 Bed 13 Private MD: ED Physician Thomas Yañez HPI: 10/18 00:04 This 63 yrs old Female presents to ER via EMS with complaints of High Blood Sugar. kb 00:04 Patient is a 63-year-old female who is brought in for abdominal pain and high blood kb sugar. EMS reports blood sugar greater than 400. Patient denies nausea, vomiting, diarrhea, cough, congestion, fever.. Historical: - Allergies: 10/17 21:48 Codeine; rg5 21:48 TOPROL; rg5 21:48 Tramadol HCl; rg5 - PMHx: 21:48 Anxiety; Cellulitis; Depression; Diabetes - NIDDM; High Cholesterol; HIV positive; rg5 Hypertension; Seizure; - PSHx: 21:48 Cholecystectomy; tubal ligation; rg5 - Immunization history:: Adult Immunizations unknown. - Infectious Disease History:: Denies. - Social history:: Smoking status: Patient denies any tobacco usage or history of. ROS: 10/18 00:04 Constitutional: As per HPI kb Exam: 00:04 Constitutional: This is a well developed, well nourished patient who is awake, alert, kb and in no acute distress. Head/Face: Normocephalic, atraumatic. ENT: Moist Mucous membranes Cardiovascular: Regular rate Respiratory: Respirations even and unlabored. No increased work of breathing. Talking in full sentences Skin: Warm, dry with normal turgor. Normal color. MS/ Extremity: Pulses equal, no cyanosis. Neurovascular intact. Full, normal range of motion. Neuro: Awake and alert, GCS 15, oriented to person, place, time, and situation. 00:04 Abdomen/GI: Inspection: abdomen appears normal, Bowel sounds: normal, Palpation: soft, in all quadrants, mild abdominal tenderness, in all quadrants, Vital Signs: 10/17 20:45 BP 153 / 65; Pulse 75; Resp 18; Temp 98; Pulse Ox 99% on R/A; Weight 78.02 kg; Height 4 rg5 ft. 11 in. ; Pain 3/10; 21:52 BP 161 / 68; Pulse 76; Resp 18; Pulse Ox 99% on R/A; rg5 10/18 00:00 BP 157 / 61; Pulse 77; Resp 18; Pulse Ox 96% ; cp4 01:24 BP 160 / 64; Pulse 77; Resp 18; Pulse Ox 98% ; cp4 10/17 20:45 Body Mass Index 34.74 (78.02 kg, 149.86 cm) rg5 10/17 20:45 Pain Scale: Adult rg5 MDM: 10/17 20:43 Medical Screening Exam initiated 10/18 00:05 Differential diagnosis: DKA, hyperglycemia. Data reviewed: vital signs, nurses notes. Historians other than the Patient: EMS: [facility]. 00:57 Counseling: I had a detailed discussion with the patient and/or guardian regarding the historical points, exam findings, and any diagnostic results supporting the discharge/admit diagnosis, lab results, radiology results, the need for outpatient follow up, a family practitioner, to return to the emergency department if symptoms worsen or persist or if there are any questions or concerns that arise at home. 10/17 20:44 Order name: CBC with Diff; Complete Time: 22:17 kb 10/17 20:44 Order name: CMP; Complete Time: 22:11 10/17 20:44 Order name: Lipase; Complete Time: 22:11 10/17 23:59 Order name: Glucose, Ancillary Testing; Complete Time: 00:00 EDMS 10/17 20:44 Order name: CT Abd/Pelvis - IV Contrast Only 10/17 20:44 Order name: IV Saline Lock; Complete Time: 20:58 kb 10/17 20:44 Order name: Labs collected and sent; Complete Time: 21:37 10/17 23:56 Order name: Blood Glucose Level; Complete Time: 00:04 kb Administered Medications: 10/17 20:58 Drug: NS 0.9% IV 1000 ml IV at 1 bolus Per protocol; to be given as a bolus over 60 rg5 minutes Route: IV; Rate: 1 bolus; Site: left forearm; 10/18 01:26 Follow up: IV Status: Completed infusion 4 10/17 22:24 Drug: Insulin Regular Human IVP 10 units IVP once {Co-Signature: tb4 (Yasmine Monaco rg5 RN).} Route: IVP; Site: left antecubital; 10/18 00:03 Follow up: Response: No adverse reaction rg5 Disposition: 05:37 Co-signature as Attending Physician, Thomas Yañez MD I agree with the assessment sp4 and plan of care. I reviewed the patient's care provided by the Advanced Practice Provider and agree with the diagnosis and treatment plan. Disposition Summary: 10/18/24 00:57 Discharge Ordered Notes: Location: Home kb Condition: Stable kb Diagnosis - Hyperglycemia, unspecified kb - Abdominal pain, Generalized kb Followup: kb - With: Emergency Department - When: As needed - Reason: Worsening of condition Followup: kb - With: Private Physician - When: 2 - 3 days - Reason: Recheck today's complaints, Continuance of care, Re-evaluation by your physician Discharge Instructions: - Discharge Summary Sheet kb - Abdominal Pain, Adult, [id number] kb - Hyperglycemia, [id number] kb Forms: - Medication Reconciliation Form kb - Antibiotic Education kb - Prescription Opioid Use kb - Patient Portal Instructions kb - Leadership Thank You Letter kb Signatures: Dispatcher [employer] EDYolanda Nixon, CAREER DEVELOPMENT COORDINATOR/TEACHER-C CAREER DEVELOPMENT COORDINATOR/TEACHER-Thomas Atkins MD MD sp4 Oscar Lorenzo, RN RN rg5 Nimo Piper 4 Yasmine Monaco RN tb4
[2024-10-18 01:30] VITALS: TEMP 98
[2024-10-18 01:35] VITALS: BP 160/64; O2SAT 98
--- NOTE | 2024-10-18 01:37 | RAD REPORT ---
EXAM DESCRIPTION: CT ABDOMEN PELVIS WITH IV CONTRAST 10/18/2024 12:16 AM CDT CLINICAL HISTORY: 63 years, Female, Abdominal pain. COMPARISON: CT Abdomen Pelvis 03/18/2023. PROCEDURE: Contrast-enhanced images of the abdomen and pelvis were performed from the lung bases to the ischial tuberosities after the administration of IV contrast. In addition multiplanar reformats in the coronal and sagittal plane were obtained and reviewed. An individualized dose optimization technique, Automated Exposure Control, was utilized for the perfo rmed procedure. FINDINGS: Lung bases: The lung bases demonstrate to be clear. Liver: The liver demonstrated presence of decreased attenuation corresponding to fatty infiltration. Gallbladder: Surgical clips within the gallbladder fossa corresponding to previous cholecystectomy. N o significant biliary duct dilatation. Adrenal glands: The adrenal glands demonstrate to be normal. Pancreas: The pancreas demonstrate to be normal. Spleen: The spleen demonstrate to be within normal limits. Kidneys: The kidneys demonstrate normal uptake of contrast media. There is no evidence for nephroli thiasis and/or hydronephrosis. GI: Grossly the unopacified stomach and small bowel bowel demonstrate to be within normal limits. The re is a second portion and third portion duodenum diverticuli. No evidence for bowel dilatation and/or free air. The appendix is normal. The left-sided colon/sigmoid colon demonstrates presence of minimal diverticulosis. : The urinary bladder demonstrate to be unremarkable. Genitalia: The uterus demonstrate to be within normal limits. There are normal adnexal structures. Abdominal aorta: The aorta demonstrated presence of minimal peripheral atheromatous plaque extending into the aortic bifurcation. Retroperitoneum: There is no retroperitoneal lymphadenopathy. There is no evidence for ascites and/or abnormal fluid collections. Bones: The bones demonstrate to be demineralized. The lumbar spine demonstrate minimal anterior spond ylosis at L2-L4. Soft tissues: The soft tissues demonstrate to be unremarkable. IMPRESSION: No acute intra-abdominal or pelvic pathology. Fatty infiltration of the liver. Status post cholecystectomy. Duodenal diverticuli. Minimal diverticulosis without evidence of acute diverticulitis. Electronically signed by: Abiodun Sanchez MD 10/18/2024 12:47 AM CDT Due to temporary technical issues with the [employer] reporting system, reports are being marjorie d by the in-house radiologist without review as a courtesy to ensure prompt reporting the interpreting radiologist is fully responsible for the content of the report. Transcribed Date/Time: 10/18/2024 1:37 AM
== END 2024-10-18 01:26 | disposition home or self-care (01) ==
LOC: ER 20:40
DX: E11.65 Type 2 diabetes mellitus with hyperglycemia (principal); R10.84 Generalized abdominal pain; Z21 Asymptomatic human immunodeficiency virus [HIV] infection status
CPT/HCPCS: 96361; 85025; 36415; 82947; 83690; 80053; 74177; 96374; 99285; Q9967; J1815